=== PATIENT | male | born 1955 | race Caucasian/White ===

== ENCOUNTER → 2017-11-08 11:58 | Outpatient (CLI) | payer OTHER, SELFPAY ==
[2017-11-08 14:30] LABS: AST(SGOT) 30 U/L (15-37); Alanine Aminotransfer ALT/SGPT 66 U/L (16-61); Albumin, Serum 3.1 g/dL (3.2-5.0); Alkaline Phosphatase 120 U/L (45-117); Bilirubin, Direct 0.11 mg/dL (0.00-0.30); Cholesterol 172 mg/dL (200); Globulin 4.6 g/dL (2.2-4.2); High Density Lipoprotein 55 mg/dL; Protein, Total 7.7 g/dL (6.4-8.2); Triglycerides 94 mg/dL; Very Low Density Lipoprotein 19 mg/dL (5-40)
== END ==
PROVIDERS: Physician Assistant Medical; Family Provider Family Medicine; PCP Family Medicine; Visit Provider Internal Medicine Cardiovascular Disease
DX: I25.5 Ischemic cardiomyopathy (principal); I25.118 Atherosclerotic heart disease of native coronary artery with other forms of angina pectoris; I10 Essential (primary) hypertension; E78.5 Hyperlipidemia, unspecified; Z79.899 Other long term (current) drug therapy
CPT/HCPCS: 36415; 80061; 80076

== ENCOUNTER 2018-01-16 08:39 | Outpatient (RCR) | payer OTHER, SELFPAY ==
--- NOTE | 2018-02-15 12:08 | HP.FCE ---
HP OT Functional Capacity Eval - Task Lift Floor (Occasional 1-33% of Day): 40 lbs Floor (Frequent 34-66% of Day): 20 lbs Floor (Constant 67-100% of Day): 8 lbs Floor PDL: Light-Medium Knee (Occasional 1-33% of Day): 40 lbs Knee (Frequent 34-66% of Day): 20 lbs Knee (Constant 67-100% of Day): 8 lbs Knee PDL: Light-Medium Waist (Occasional 1-33% of Day): 40 lbs Waist (Frequent 34-66% of Day): 20 lbs Waist (Constant 67-100% of Day): 8 lbs Waist PDL: Light-Medium Shoulder (Occasional 1-33% of Day): 40 lbs Shoulder (Frequent 34-66% of Day): 20 lbs Shoulder (Constant 67-100% of Day): 8 lbs Shoulder PDL: Light-Medium Overhead (Occasional 1-33% of Day): 30 lbs Overhead (Frequent 34-66% of Day): 15 lbs Overhead (Constant 67-100% of Day): 6 lbs Overhead PDL: Light Comments: Performance classifies him in the light- light medium category of work performance. However, he became extremely SOB and need multiple breaks t/o session. Based on performance and cardiac complications he is unsafe to return to work at this time. Both emotional and physical stressors will inturn place increased strain on heart. Further recommnedation from material control analyst would be beneficial as chest pain Pt. noted is consistent t/o . - Work Activity/Posture Bending: Occasional Ability (1-33% of day) Comments: very SOB; able to complete but would not recommend more 10% Squatting: Occasional Ability (1-33% of day) Comments: very SOB; able to complete but would not recommend more 10% Kneeling: Occasional Ability (1-33% of day) Comments: very SOB; able to complete but would not recommend more 10% Reaching out: Frequent Ability (34-66% of day) Comments: FROM SEATED POSITION; BREAK NEEDED DUE TO SOB Reaching up: Frequent Ability (34-66% of day) Comments: FROM SEATED POSITION; BREAK NEEDED DUE TO SOB Sitting: Frequent Ability (34-66% of day) Comments: very SOB; able to complete but would not recommend more 10% Walking: Occasional Ability (1-33% of day) Comments: very SOB; able to complete but would not recommend more 10% Standing: Occasional Ability (1-33% of day) - Reference Duration Sedentary Sedentary Light Light Light Medium Medium Medium Heavy Very Heavy Heavy Occasional (0-33% of day) Frequent (34-66% of day) Constant (67-100% of day) 10 # Negligible Negligible 15 # 8 # Negligible 20 # 10# Negli. 35 # 18 # 7 # 50 # 25 # 10 # 75 # 100 # >100 # 38 # 50 # >50 # 15 # 20 # >20 # - Patient Information Height: 6 m Weight:: 247 kg Hand Dominance: r handed - Medical History Medical History Including Restrictions: No medical restrictions at this time as per Pt. report. No additional information provided by doctor. - Diagnoses Diagnoses: PMHx: CAD, former smoker, CABG 2007, 2x stent placements 06/09 and 12/16, angina, HTN, GERD, N-STEMI 1.5 years ago (3 total). LAst followed up Dr. Zapata with material control analyst 2 months ago. - Symptoms Symptoms: Pt. main symptoms are SOB, fatigue, and low endurance/stamina. Notes he pretty much getting chest ache all the time. It's not like a heart attack just always like an ache. - Pain Pain: Pt. notes just chest ache while sitting in chair. Notes no real ache. Notes that if needing to rate it would be about 2-3/10. 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 Notes that he completed a lot of heavy lifting and machine operating activities. Notes that previously needed to lift like 50-80 lbs but unsure fo what job decriotion entails and job description noted provied to therapist. - Behavioral Behavioral: Mookie appear to really try hard to complete all tasks. Dyspnea noted with all activities and t/o exertion of tasks. He appears to have about 5 min threshold with extertion tasks prior to needing seated break. SOB is limiting factor and limited endurance noted t/o session due breathing. This appears to be related to multiple factors and predisposing cardiac conditions. Further confirmation can be determined from material control analyst. Performance became more labored and more breaks needed as tasks continued t/o session. - ADLS ADLS: Pt. lives with in one story home with 5 steps to enter with handrials on b sides. FFSU with basement. Notes does not access basement too much. Notes he has 2 cats that he helps care for and noted that he completed all ADls/IADls but becomes very SOB with extertion tasks. Still drive, and grocery shopping but typically completes and he goes with one in while. - Physical Examination Physical Examination: Mookie arrived for FCE on this date. noted he has been tring to go back to work off/on since CABG in 2007. After last heart attack in 2016 he noted he went on STD and has since been placed on LTD. Mookie presents with multiple cardiac implications and becomes severly SOB with physical extertion. Performance classifies him at light to light medium work category but due to predisposing cardiac complications it is not reccommended or safe that he completes work at this level. As per Pt. report has completed [facility] Cardiac rehab 3x but SOB and limited endurance are still limiting ability to complete many tasks. ROM: Pt. ROM is WNL of B UE and LE. All ROM is WFL at this time. Strength: B UE. Deltoid: R 5/5 L 5/5. bicep: R 5/5 L 5/5. triceps: R 5/5 L 4 /5. supraspinatus: R 4+/5 L 4+/5. IR: R 5/5 L 5/5. ER: R 5/5 L 5/5. B LUE. Hip flexors: R 4+/5 L 4/5. hamstrings: R 4+/5 L 4+/5. quadraceps: R 4/5 L 4/5. plantarflexion: R 4+/5 L 4+/5. Hip adduction: R 5/5 L 5/5. hip abduction: R 5/5 L 5/5 Right Manager Customer Service Strength Average: 100.66 Right Manager Customer Service Strength Percentile: 142 Left Manager Customer Service Strength Average: 87.66 Left Manager Customer Service Strength Percentile: 106 Right Lateral Pinch Average: 21.33 Right Lateral Pinch Percentile: 75th Left Lateral Pinch Average: 18.33 Left Lateral Pinch Percentile: above 50th but below 75th Right Tripod Pinch Average: 19.66 Right Tripod Pinch Percentile: 75th Left Tripod Pinch Average: 14.33 Left Tripod Pinch Percentile: 25th Sensation: Pt. noted no numbness and tingling on this date. Notes not numbness on front of thighs with walking at times. Report not h/o of back pain or injury. Pt. completed monofilament test and results are as follows: R. 2nd 3.22. 3rd 2.83. 4th 3.22. 5th 3.22. thumb 3.84. L hand. 2nd 2.83. 3rd 2.83. 4th 2.83. 5th 2.83. thumb 2.83 Fine Motor: Pt. FMC and dexterity is intact and WFL. Completed 9 hole pegbiard test to fruther determine ability and results below: 9 hole pegboard: R 22.82 s (approx 75th percentile). L 24.66 s ( approx 50th percentile) Balance: Balance is WNL. No LOb noted. - Non Material Handling Activities Bendinx, 10x, 10x fast. Increased lighthheadness, SOB, and need for seated break. Completed but due to implications needs further rest. Fair body mechanics. Increased thoracic flexion which decreased soinal alignment. Due to increased symptoms from cardiac symptom should complete occassionally. Squattinx, 10x need for seated break due to increased SOB. 10 fast and another seated break. Although SOBa nd visibly winded stats remained within safe ranges. Due to SOB. BP 146/95. O2 97 % Kneelinx, 10x, need for seated break as increased SOB. Vitals taken. after 4 mins seated break compleetd 10 faster but at his own pace. Needed seated break again as winded. Needed 2 mins break prior to continuing. Visible winded and breathing heavily. HR 92 bpm, BP 151/88, O2 97%. Fair body mechanics. SLight hip external rotation causing feet to rotate outward, increaseed trunk flexion to maintain balance, spine in fair alignment. Due to increased SOB reccommendeding occassional as further endurance needed to be built up. Reaching out/up: From seated position as he needed break from extertion of previos sections. Reaching out: 3x, 10x, 10 x fast. Good body mechanics from seated position. No additional strain noted. Increased SOB during completion. Needed short 1 min break prior to continuing to regain breath. Reaching up: 3x, 10x, 10 x fast. Good body mechanics from seated position. Needed short rest post compeltion of task. vITALS: o2 98%, hr 87 BPM, bp 139/89. Walking: Completed 15 mins walk with need for 2 min break after 5 mins. Able to complete 6 laps at his own pace during 15 mins. Increased SOB noted and he became increasingly winded t/o session. Antalgic gait noted but gait WNL. Standing: Able to complete about 5-10 mins standing before needing to sit. Increased SOb with completing task. Sitting: Completed 30-40 mins of seated tasks. Notes when static sitting ache in chest area that he noted has been consistent for past couple of years. Notes ache in chest consistent with -09/09. Climbing Stairs: Pt. able to climb 10 stairs with laternating foot pattern with use of 1x handrail. Increased SOB noted and needing slight break to steady breath prior to continuing. - Dynamic Occasional Lifting Capacity Floor Lift: 40 lbs. Completed with poor body mechanics of decreased thoracic flexion, narrow baseof support, and lifting with straight legs. Increased Knee Lift: 40 lbs. SOB, holding breath, narrow KATHRYN Waist Lift: 40 lbs. SOB, holding breath, Shoulder Lift: 40 lbs. SOB, holding breath, Overhead Lift: 30 lbs Carryin lbs. SOB, holding breath,
--- NOTE | 2018-02-15 12:08 | HP.OTFCE.D ---
FCE D/C Summary - Discharge CARLTON CRAIG was seen for a one time visit for an FCE on 01/16/18 and is discharged.
--- NOTE | 2018-02-15 18:08 | HP.OTFCE_ITS ---
HP OT Functional Capacity Eval - Task Lift Floor (Occasional 1-33% of Day): 40 lbs Floor (Frequent 34-66% of Day): 20 lbs Floor (Constant 67-100% of Day): 8 lbs Floor PDL: Light-Medium Knee (Occasional 1-33% of Day): 40 lbs Knee (Frequent 34-66% of Day): 20 lbs Knee (Constant 67-100% of Day): 8 lbs Knee PDL: Light-Medium Waist (Occasional 1-33% of Day): 40 lbs Waist (Frequent 34-66% of Day): 20 lbs Waist (Constant 67-100% of Day): 8 lbs Waist PDL: Light-Medium Shoulder (Occasional 1-33% of Day): 40 lbs Shoulder (Frequent 34-66% of Day): 20 lbs Shoulder (Constant 67-100% of Day): 8 lbs Shoulder PDL: Light-Medium Overhead (Occasional 1-33% of Day): 30 lbs Overhead (Frequent 34-66% of Day): 15 lbs Overhead (Constant 67-100% of Day): 6 lbs Overhead PDL: Light Comments: Performance classifies him in the light- light medium category of work performance. However, he became extremely SOB and need multiple breaks t/o session. Based on performance and cardiac complications he is unsafe to return to work at this time. Both emotional and physical stressors will inturn place increased strain on heart. Further recommendation from e learning designer would be beneficial as chest pain Pt. noted is consistent t/o . Vitals remained within safe range but further e learning designer follow up still warrented. - Work Activity/Posture Bending: Occasional Ability (1-33% of day) Comments: very SOB; able to complete but would not recommend more 10% Squatting: Occasional Ability (1-33% of day) Comments: very SOB; able to complete but would not recommend more 5-10% Kneeling: Occasional Ability (1-33% of day) Comments: very SOB; able to complete but would not recommend more 5-10% Reaching out: Frequent Ability (34-66% of day) Comments: FROM SEATED POSITION; BREAK NEEDED DUE TO SOB Reaching up: Frequent Ability (34-66% of day) Comments: FROM SEATED POSITION; BREAK NEEDED DUE TO SOB Sitting: Frequent Ability (34-66% of day) Comments: very SOB; able to complete but would not recommend more 5-10% Walking: Occasional Ability (1-33% of day) Comments: very SOB; able to complete but would not recommend more 10% Standing: Occasional Ability (1-33% of day) - Reference Duration Sedentary Sedentary Light Light Light Medium Medium Medium Heavy Very Heavy Heavy Occasional (0-33% of day) Frequent (34-66% of day) Constant (67-100% of day) 10 # Negligible Negligible 15 # 8 # Negligible 20 # 10# Negli. 35 # 18 # 7 # 50 # 25 # 10 # 75 # 100 # >100 # 38 # 50 # >50 # 15 # 20 # >20 # - Patient Information Height: 6 m Weight:: 247 kg Hand Dominance: r handed - Medical History Medical History Including Restrictions: No medical restrictions at this time as per Pt. report. No additional information provided by doctor. - Diagnoses Diagnoses: PMHx: CAD, former smoker, CABG 2007, 2x stent placements 06/09 and , angina, HTN, GERD, N-STEMI 1.5 years ago (3 total). LAst followed up Dr. Zapata with e learning designer 2 months ago. - Symptoms Symptoms: Pt. main symptoms are SOB, fatigue, and low endurance/stamina. Notes he pretty much getting chest ache all the time. It's not like a heart attack just always like an ache. - Pain Pain: Pt. notes just chest ache while sitting in chair. Notes no real ache. Notes that if needing to rate it would be about 2-3/10. 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 Notes that he completed a lot of heavy lifting and machine operating activities. Notes that previously needed to lift like 50-80 lbs but unsure of what job description entails as no job description provided to therapist. - Behavioral Behavioral: Mookie appear to really try hard to complete all tasks. Dyspnea noted with all activities and t/o exertion of tasks. He appears to have about 5 min threshold with exertion tasks prior to needing seated break. SOB is limiting factor and limited endurance noted t/o session due breathing. This appears to be related to multiple factors and predisposing cardiac conditions. Further confirmation can be determined from e learning designer. Performance became more labored and more breaks needed as tasks continued t/o session. - ADLS ADLS: Pt. lives with in one story home with 5 steps to enter with handrails on b sides. [employer] with basement. Notes does not access basement too much. Notes he has 2 cats that he helps care for and noted that he completed all ADls/IADls but becomes very SOB with exertion tasks. Still drive, and grocery shopping but typically completes, and he goes with one in while. - Physical Examination Physical Examination: Mookie arrived for FCE on this date. noted he has been trying to go back to work off/on since CABG in 2007. After last heart attack in 2016 he noted he went on STD and has since been placed on LTD. Mookie presents with multiple cardiac implications and becomes severely SOB with physical exertion. Performance classifies him at light to light medium work category but due to predisposing cardiac complications it is not recommended or safe that he completes work at this level. As per Pt. report has completed [facility] Cardiac rehab 3x but SOB and limited endurance are still limiting ability to complete many tasks. It would not be recommended he return to strenuous or light-light medium work due to increased SOB. Due to increased strain and emotional stressors of work it would not be recommended for him to return to prior job as safety and integrity of heart is major concern at this time. Further approval and recommendation from e learning designer would be needed. ROM: Pt. ROM is WNL of B UE and LE. All ROM is WFL at this time. No noted deficits. Strength: B UE. Deltoid: R 5/5 L 5/5. bicep: R 5/5 L 5/5. triceps: R 5/ 5 L 4 /5. supraspinatus: R 4+/5 L 4+/5. IR: R 5/5 L 5/5. ER: R 5/5 L 5/5. B LUE. Hip flexors: R 4+/5 L 4/5. hamstrings: R 4+/5 L 4+/5. quadraceps: R 4/5 L 4/5. plantarflexion: R 4+/5 L 4+/5. Hip adduction: R 5 /5 L 5/5. hip abduction: R 5/5 L 5/5 Right Patient Appointment Coordinator Strength Average: 100.66 Right Patient Appointment Coordinator Strength Percentile: 142 Left Patient Appointment Coordinator Strength Average: 87.66 Left Patient Appointment Coordinator Strength Percentile: 106 Right Lateral Pinch Average: 21.33 Right Lateral Pinch Percentile: 75th Left Lateral Pinch Average: 18.33 Left Lateral Pinch Percentile: above 50th but below 75th Right Tripod Pinch Average: 19.66 Right Tripod Pinch Percentile: 75th Left Tripod Pinch Average: 14.33 Left Tripod Pinch Percentile: 25th Sensation: Pt. noted no numbness and tingling on this date. Notes not numbness on front of thighs with walking at times. Report not h/o of back pain or injury. Pt. completed monofilament test and results are as follows: R. 2nd 3.22. 3rd 2.83. 4th 3.22. 5th 3.22. thumb 3.84. L hand. 2nd 2.83. 3rd 2.83. 4th 2.83. 5th 2.83. thumb 2.83 Fine Motor: Pt. FMC and dexterity is intact and WFL. Completed 9 hole pegbiard test to fruther determine ability and results below: 9 hole pegboard: R 22.82 s (approx 75th percentile). L 24.66 s ( approx 50th percentile) Balance: Balance is WNL. No LOb noted. - Non Material Handling Activities Bendinx, 10x, 10x fast. Increased lighthheadness, SOB, and need for seated break. Completed but due to implications needs further rest. Fair body mechanics. Increased thoracic flexion which decreased spinal alignment. Due to increased symptoms from cardiac symptom should complete occasionally. Squattinx, 10x need for seated break due to increased SOB. 10 fast and another seated break. Although SOB and visibly winded stats remained within safe ranges BP 146/95. O2 97 %. Due to multiple cardiac complication this task should be monitored and further testing by e learning designer would be beneficial at this time. Body mechanics fair but due to SOB and h/o cardiac complications squatting should be completed on occasion. Kneelinx, 10x, need for seated break as increased SOB. Vitals taken: HR 92 bpm, BP 151/88, O2 97%. after 4 mins seated break completed 10 faster but at his own pace. Needed seated break again as winded but very minimal power shovel mechanic changes noted. Needed 2 mins break prior to continuing. Fair body mechanics. Slight hip external rotation causing feet to rotate outward, increased trunk flexion to maintain balance, spine in fair alignment. Due to increased SOB recommending occasional as further endurance needed to be built up before completing this task frequently. Further is additionally recommended to be obtained by e learning designer as due to h/o cardiac complications and increased SOB with all tasks to the threshold of physical performance given heart conditions. Reaching out/up: From seated position as he needed break from extertion of previous sections. Reaching out: 3x, 10x, 10 x fast. Good body mechanics from seated position. No additional strain noted. Increased SOB during completion. Needed short 1 min break prior to continuing to regain breath. Reaching up: 3x, 10x, 10 x fast. Good body mechanics from seated position. Needed short rest post compeltion of task. VITALS: o2 98%, hr 87 BPM, bp 139/ 89. Vitals remained within safe range for physical exertion. Walking: Completed 15 mins walk with need for 2 min break after 5 mins. Able to complete 6 laps , each lap 340 ft, at his own pace during 15 mins. Increased SOB noted and he became increasingly winded t/o session. Antalgic gait noted but gait WNL. Standing: Able to complete about 5-10 mins standing before needing to sit. Increased SOB with completing task. Sitting: Completed 30-40 mins of seated tasks. Notes when static sitting ache in chest area that he noted has been consistent for past couple of years. Notes ache in chest consistent with 2-3/10. Climbing Stairs: Pt. able to climb 10 stairs with laternating foot pattern with use of 1x handrail. Increased SOB noted and needing slight break to steady breath prior to continuing. - Dynamic Occasional Lifting Capacity Floor Lift: 40 lbs. Completed with poor body mechanics of decreased thoracic flexion, narrow base of support, and lifting with straight legs. SOB, holding breath, increased compensations and mechanical changes noted while completing task. Fair body mechanics. Although performance classifies at light medium it would not be recommended that he completes that type of strenuous work load given PMH of cardiac complications. Further approval would be recommended from e learning designer on what Pt. can tolerate. Knee Lift: 40 lbs. SOB, holding breath, narrow KATHRYN, increased compensations and mechanical changes noted while completing task. Fair body mechanics. Although performance classifies at light medium it would not be recommended that he completes that type of strenuous work load given PMH of cardiac complications without further approval from e learning designer. Waist Lift: 40 lbs. SOB, holding breath, increased compensations and mechanical changes noted while completing task. Fair body mechanics. Although performance classifies at light medium it would not be recommended that he completed that type of strenuous work load give PMH of cardiac complications without further approval from e learning designer. Shoulder Lift: 40 lbs. SOB, holding breath, increased compensations and mechanical changes noted while completing task. Fair body mechanics. Although performance classifies at light medium it would not be reccommended that he completed that type of strenuous work load give PMH of cardiac complications without further approval from e learning designer. Overhead Lift: 30 lbs. SOB, holding breath, increased compensations and mechanical changes noted while completing task. Fair body mechanics. Although performance classifies at light it would not be reccommended that he completed that type of strenuous work load give PMH of cardiac complications without further approval from e learning designer. Carryin lbs. SOB, holding breath, increased compensations and mechanical changes noted while completing task. Fair body mechanics. Although performance classifies at light medium it would not be reccommended that he completed that type of strenous work load give PMH of cardiac complications without further approval from e learning designer. Comments: At completion of session BP 151/88, o2 97%, and HR 92 bpm. Vitals fairly consistent t/o session with use of automatic BP cuff. These vitals are within normal limits due to exertions. However, vitals were taken a couple minutes after resting due to time needed for machine to process and complete measurements. Due to increased SOB, and compensations it would be recommended for further testing and follow up with e learning designer. It would not be recommended Pt. performs at light- light medium range due to increased stain on heart and mechanical changes and SOB noted t/o session. It further maybe beneficial for Pt. to see psychologist to rule out anxiety related changes causing SOB due to increased stressors of cardiac related issues over the last few years.
== END 2018-01-16 19:00 | disposition home or self-care (01) ==
LOC: OT 08:39
PROVIDERS: Family Provider Family Medicine; PCP Family Medicine; Visit Provider Family Medicine
DX: I25.10 Atherosclerotic heart disease of native coronary artery without angina pectoris (principal)
CPT/HCPCS: 97750

== ENCOUNTER → 2018-05-07 10:11 | Outpatient (CLI) | payer OTHER, SELFPAY | PROVIDERS: Family Provider Family Medicine; PCP Family Medicine; Referring Provider Physician Assistant Medical; Visit Provider Physician Assistant Medical | DX: Z00.00 Encounter for general adult medical examination without abnormal findings (principal) ==

== ENCOUNTER → 2018-11-12 | Outpatient (CLI) | payer OTHER, MEDICARE, SELFPAY ==
[2018-05-11 10:16] VITALS: BMI 34.3
[2018-11-12 10:12] LABS: Absolute Lymphocyte Count 2.08 X10^3/ul (0.83-4.51); Absolute Neutrophil Count 5.9 X10^3/uL (2.0-7.7); Basophil# 0.08 X10^3/uL; Basophil% 0.8 % (0-1); Eosinophil# 0.42 X10^3/uL; Eosinophils% 4.4 % (0-5); Hemoglobin 16.2 g/dl (13.0-16.5); Lymphocyte # 2.08 X10^3/ul (4.0); Lymphocyte % 21.9 % (19-41); Mean Corp Hgb Conc 34.5 g/gl (32-36); Mean Corpuscular Hgb 30.1 pg (27.0-32.0); Mean Corpuscular Volume 87.2 fL (80-94); Mean Platelet Vol. 11.3 fl (6.2-12.0); Monocyte# 0.97 X10^3/uL; Monocyte% 10.2 % (0-10); Neutrophil # 5.94 X10^3/uL (2.7-7.7); Neutrophil % 62.6 % (47-70); Platelet Count 203 K/mm3 (150-450); RBC Distribution Width CV 13.9 % (11.6-14.6); Red Blood Count 5.39 M/mm3 (4.6-6.2); White Blood Count 9.5 K/mm3 (4.4-11.0)
[2018-11-12 10:13] LABS: POSITIVE COUNT NO; POSITIVE DIFFERENTIAL NO; POSITIVE MORPHOLOGY NO
[2018-11-12 10:48] LABS: ALB/GLOB Ratio 0.7 RATIO (0.9-2.4); AST(SGOT) 21 U/L (15-37); Alanine Aminotransfer ALT/SGPT 42 U/L (16-61); Albumin, Serum 3.1 g/dL (3.2-5.0); Alkaline Phosphatase 112 U/L (45-117); Anion Gap 5 (5-15); BUN 23 mg/dL (7-18); BUN/Creat Ratio 16.8 RATIO (10-20); Bilirubin, Direct 0.08 mg/dL (0.00-0.30); Calcium,Total 8.5 mg/dL (8.5-10.1); Chloride 107 mmol/L (98-107); Cholesterol 153 mg/dL (200); Creatinine, Serum 1.37 mg/dL (0.70-1.30); EST Glomerular Filtration Rate 56 mL/min (>60); Est Glom Filt Rate - Afr Amer 67 mL/min (>60); Globulin 4.2 g/dL (2.2-4.2); Glucose 104 mg/dL (74-106); High Density Lipoprotein 44 mg/dL; Protein, Total 7.3 g/dL (6.4-8.2); Sodium Level 136 mmol/L (136-145); Thyroid Stim Hormone (TSH) 1.87 uIU/mL (0.358-3.74); Triglycerides 196 mg/dL; Very Low Density Lipoprotein 39 mg/dL (5-40)
== END | disposition home or self-care (01) ==
LOC: MTLAB 09:22
PROVIDERS: Family Provider Family Medicine; PCP Family Medicine; Referring Provider Physician Assistant Medical; Visit Provider Physician Assistant Medical
DX: Z00.00 Encounter for general adult medical examination without abnormal findings (principal); I25.10 Atherosclerotic heart disease of native coronary artery without angina pectoris; E78.5 Hyperlipidemia, unspecified
CPT/HCPCS: 80053; 80061; 82248; 84153; 84443; 85025; G0103

== ENCOUNTER 2019-05-13 15:44 | Inpatient (IN) | payer OTHER, MEDICARE, SELFPAY ==
[2018-12-04 12:22] VITALS: BMI 32.3
[2019-05-13] VITALS (18 sets, daily range): BP systolic 75–120; BP diastolic 51–73; PULSE 101–122; RESP 20–32; TEMP 34.7–37.2; O2SAT 89–100; BMI 30.3; BMI 31.1
--- NOTE | 2019-05-13 15:54 | EKG12_ITS ---
Test Reason : PALPS Blood Pressure : / mmHG Vent. Rate : 119 BPM Atrial Rate : 101 BPM P-R Int : 000 ms QRS Dur : 094 ms QT Int : 320 ms P-R-T Axes : 000 019 075 degrees QTc Int : 450 ms Atrial fibrillation with rapid ventricular response Nonspecific ST abnormality Poor R wave progression Abnormal ECG Confirmed by JOSELIN PETERSEN, WILMAR ([id number]), web editor DON COATS ([id number] on 05/15/2019 9:42:39 AM Referred By: Cat Vincent Confirmed By:WILMAR OLIVERA MD
--- NOTE | 2019-05-13 15:55 | ED.DCSUM_ITS ---
History of Present Illness Chief Complaint: Abd Pain Informant: Patient Onset: Days Context: Gradual Onset Timing: Continuous Current Severity: Moderate Maximum Severity: Severe Narrative: The patient presents to the emergency department nausea, vomiting, diarrhea, abdominal cramping. He states his symptoms began on Monday. He thinks that he ate chicken that was bad. Since then, he had diffuse abdominal cramping with multiple episodes of loose, watery diarrhea. He is unsure if he had fever. He does admit to diffuse cramping across his abdomen. The patient does have history of prior coronary vascular disease. He has had a prior CABG and since then has required stenting. He states that he has been off of his heart medications because he was unable to keep them down. He has not had chest pain. He does feel mildly short of breath and just generally weak. He denies any blood in his bowel movements. Prior similar symptoms: No Recent Illness/Hospitalization: No Past Medical History - Allergies and Home Meds Allergies/Adverse Reactions: Allergies No Known Allergies Allergy (Verified 05/13/19 15:46) Prior records reviewed: Yes Past Medical History: - - Hypertension, hyperlipidemia Surgical History: coronary bypass surgery - 2007 Smoking Status: Former smoker - Family History Maternal Family History: Family History (Last Reviewed 12/04/18 @ 15:24 by Javon Zapata MD) Mother Cancer Father Cancer Brother HLD (hyperlipidemia) Family History: Reports: - - Cervical cancer Paternal Family History: Family History (Last Reviewed 12/04/18 @ 15:24 by Javon Zapata MD) Mother Cancer Father Cancer Brother HLD (hyperlipidemia) Family History: Reports: Cancer Review of Systems General: Denies: Chills, Fever, Sweats Eyes: Denies: Visual changes - bilaterally, Diplopia ENT: Denies: Rhinorrhea, Sore throat Cardiovascular: Denies: Chest pain, Palpitations Respiratory: Reports: Dyspnea. Denies: Cough, Dyspnea on exertion Gastrointestinal: Reports: Abdominal pain, Nausea, Vomiting. Denies: Diarrhea, Melena, Hematochezia Genitourinary: Denies: Dysuria, Hematuria, Frequency Musculoskeletal: Denies: Back pain, Extremity Pain Skin: Denies: Rash, Wounds Neurological: Denies: Headache, Weakness, Numbness Physical Exam Vital Signs/Narrative: Vital Signs Temp Pulse Resp BP Pulse Ox 05/13/19 15:53 94.5 F L 44 L 22 H 120/63 89 05/13/19 15:46 94.5 F L 44 L 22 H 120/63 89 Inital Vital Signs reviewed: Yes General: Well nourished, Well developed, No Acute Distress Head: Normocephalic, Atraumatic Eyes: Perrl, EOMI ENT: Moist mucous membranes, No rhinorrhea Neck: Supple, Nontender Cardiovascular: Regular rate, Regular rhythm, No murmurs Respiratory: No distress, CTA bilaterally, Chest nontender Abdomen: Soft, Nondistended, Normal bowel sounds, Tender. Negative for: Guarding, Rebound tenderness Back: Nontender, Normal Inspection Extremities: Nontender, No edema Skin: Normal color, No rash Neurological: Alert, Oriented x3, Cranial nerves II-XII grossly intact, Normal Strength, Normal Sensation Psychological: Normal affect, Normal Mood Diagnostic/Tx/Re-eval Chest X-Ray - ED: 1 View, Chronic Changes, Cardiomegaly Clinical Impression(s) from Imaging Studies Abdomen CTA 05/13/19 15:59 IMPRESSION: No evidence of superior mesenteric artery occlusion or flow-limiting stenosis. Electronically Signed: Jayme Parekh MD at 16:33 EST Tel , Service support , Abdomen/Pelvis CT 05/13/19 16:53 IMPRESSION: No CT evidence of colitis. Specifically, no areas of colonic wall thickening or adjacent fatty attenuation. No evidence of acute intestinal pathology or acute obstructive uropathy. Electronically Signed: Jayme Parekh MD at 17:19 EST Tel , Service support , Abnormal Lab Results 05/13/19 05/13/19 05/13/19 16:00 16:00 16:00 WBC 14.9 H RBC 6.40 H Hgb 19.1 H* Hct 55.8 H MCV 87.2 MCH 29.8 MCHC 34.2 RDW Std Deviation 42.5 RDW Coeff of [place] 13.4 Plt Count 269 MPV 11.8 Immature Gran % (Auto) 0.300 Neut % (Auto) 78.3 H Lymph % (Auto) 9.6 L [place] % (Auto) 10.8 H Eos % (Auto) 0.6 Baso % (Auto) 0.4 Absolute Neuts (auto) 11.7 H Absolute Lymphs (auto) 1.43 Nucleated RBC % 0 Differential Comment SCANNED Diff Path Review May foll PT INR APTT Specimen Type Sample Site VBG pH VBG pO2 VBG O2 Sat (Calc) VBG O2 Content VBG Base Excess POC Mix VBG pCO2 Pt Tmp Blood Gas Notified Whom Blood Gas Notified Time Sodium 125 L Potassium 3.7 Chloride 85 L Carbon Dioxide 13.0 L Anion Gap 27 H BUN 100 H Creatinine 16.80 H* Estim Creat Clear Calc 5.02 Est GFR (MDRD) Af Amer 4 L Est GFR (MDRD) Non-Af 3 L BUN/Creatinine Ratio 6.0 L Glucose 167 H Lactic Acid 5.5 H* Calcium 8.5 Total Bilirubin 0.60 AST 15 ALT 36 Alkaline Phosphatase 116 Troponin I < 0.015 Total Protein 10.1 H Albumin 3.6 Globulin 6.5 H Albumin/Globulin Ratio 0.6 L Lipase 663 H TSH 1.03 Thyroxine (T4) 10.0 05/13/19 05/13/19 05/13/19 16:00 16:12 17:24 WBC RBC Hgb Hct MCV MCH MCHC RDW Std Deviation RDW Coeff of [place] Plt Count MPV Immature Gran % (Auto) Neut % (Auto) Lymph % (Auto) [place] % (Auto) Eos % (Auto) Baso % (Auto) Absolute Neuts (auto) Absolute Lymphs (auto) Nucleated RBC % Differential Comment Diff Path Review PT Cancelled 15.2 H INR Cancelled 1.2 APTT Cancelled 28.3 Specimen Type JULISSA Sample Site OTHER VBG pH 7.11 L* VBG pO2 33 VBG O2 Sat (Calc) 46 L VBG O2 Content 12 L VBG Base Excess -18 L POC Mix VBG pCO2 Pt Tmp 35.0 L Blood Gas Notified Whom ED Blood Gas Notified Time 1605 Sodium Potassium Chloride Carbon Dioxide Anion Gap BUN Creatinine Estim Creat Clear Calc Est GFR (MDRD) Af Amer Est GFR (MDRD) Non-Af BUN/Creatinine Ratio Glucose Lactic Acid Calcium Total Bilirubin AST ALT Alkaline Phosphatase Troponin I Total Protein Albumin Globulin Albumin/Globulin Ratio Lipase TSH Thyroxine (T4) - Rhythm Strip Rhythm Strip: A-fib Rate: 110 Ectopy: None - EKG Initial EKG Interpretation: No Acute Injury Pattern, Atrial Fibrillation Prior: Changed - Medical Decision Making The patient presents to the emergency department with abdominal pain, nausea, vomiting, diarrhea. His abdominal wall does appear to be mottled. His EKG demonstrated new onset atrial fibrillation. The patient was sent for stat CTA given his new A. fib and abdominal pain to rule out acute vascular process. This was unremarkable for acute occlusion. IV was established. The patient was given fluids. Screening labs do show leukocytosis, concentration across the blood lines, and a lactic acidosis of 5.5. The patient has new acute renal failure with a creatinine of almost 17. He has a BUN of over 100. The patient was discussed with intensive care and the hospitalist. He was also discussed with nephrology. Given his new renal failure, along with his lactic acidosis, he will be admitted to the intensive care unit. Impression 1. Acute renal failure 2. Dehydration 3. New onset atrial fibrillation 4. Lactic acidosis - Critical Care Time Critical care time (excluding procedures): 30-74 minutes ED Disposition - Plan for ED Patient:
--- NOTE | 2019-05-13 15:59 | CT_ITS ---
CT ANGIOGRAM OF THE ABDOMEN WITH CONTRAST HISTORY: Mesenteric ischemia COMPARISON: Technique: Axial CT angiogram images of the abdomen was performed after IV contrast administration of [ 100 ]cc of [ Isovue 300 ] followed by sagittal and coronal reconstructions. 3-D postprocessing was performed. Individualized dose optimization techniques were used for this CT. FINDINGS: Scattered calcified arterial plaque in the abdomen. There is no evidence of abdominal aortic dissection, occlusion, aneurysm, or stenosis. The abdominal aortic branch vessels are patent. Visualized portions of the common iliac arteries are patent. No evidence of superior mesenteric artery occlusion or flow-limiting stenosis. Median sternotomy wires. Visualized lung bases are intact. Fatty liver. Spleen, adrenal glands, kidneys, pancreas and gallbladder are unremarkable. Visualized bowel is intact. Incompletely visualized appendix. No free abdominal fluid. CT/CTA Abdomen W/WO Contrast IMPRESSION: No evidence of superior mesenteric artery occlusion or flow-limiting stenosis. Electronically Signed: Jayme Parekh MD at 16:33 EST Tel , Service support ,
[2019-05-13] MEDS: fentaNYL 100 MCG/2 ML Ampul 25 MCG IV (16:02)
[2019-05-13] MEDS: 0.9% Normal Saline 1,000 ML 1000 ML IV (16:03)
[2019-05-13] MEDS: Ondansetron 4 MG/2 ML Vial IV (16:03)
[2019-05-13 16:20] LABS: Blood Gas Specimen Type VEN; SITE OTHER; Time Given 1605; VBG BASE EXCESS -18 mmol/L (-1.0-3.5); VBG Bicarbonate 11 mmol/L (22-26); VBG Oxygen Content 12 mmol/L (23-33); VBG PO2 33 mmHg (25-40); VBG SO2 46 % (50-70); VBG pH 7.11 (7.32-7.42)
[2019-05-13 16:23] LABS: Absolute Lymphocyte Count 1.43 X10^3/uL (0.83-4.51); Absolute Neutrophil Count 11.7 X10^3/uL (2.0-7.7); Basophil# 0.06 X10^3/uL; Basophil% 0.4 % (0-1); Eosinophil# 0.09 X10^3/uL; Eosinophils% 0.6 % (0-5); Hemoglobin 19.1 g/dL (13.0-16.5); Lymphocyte # 1.43 X10^3/ul (4.0); Lymphocyte % 9.6 % (19-41); Mean Corp Hgb Conc 34.2 g/dL (32-36); Mean Corpuscular Hgb 29.8 pg (27.0-32.0); Mean Corpuscular Volume 87.2 fL (80-94); Mean Platelet Vol. 11.8 fl (6.2-12.0); Monocyte# 1.61 X10^3/uL; Monocyte% 10.8 % (0-10); NRBC Flagged by Analyzer 0 % (0-5); Neutrophil # 11.66 X10^3/uL (2.7-7.7); Neutrophil % 78.3 % (47-70); POSITIVE DIFFERENTIAL YES; POSITIVE MORPHOLOGY YES; Platelet Count 269 K/mm3 (150-450); RBC Distribution Width CV 13.4 % (11.6-14.6); RBC Distribution Width SD 42.5 fl (35.1-43.9); White Blood Count 14.9 K/mm3 (4.4-11.0)
[2019-05-13 16:27] LABS: Hematocrit 55.8 % (40-54)
[2019-05-13 16:28] LABS: Differential Indicated SCAN CRITERIA MET
--- NOTE | 2019-05-13 16:36 | CPS ---
Copy of critical VBG results given to Dr. Oviedo.
[2019-05-13] MEDS: 0.9% Normal Saline 1,000 ML 999 ML IV (16:43)
[2019-05-13 16:47] LABS: Lactic Acid 5.5 mmol/L (0.4-2.0)
--- NOTE | 2019-05-13 16:53 | CT_ITS ---
STUDY: CT ABDOMEN AND PELVIS WITHOUT CONTRAST REASON FOR EXAM: Male, 63 years old. Colitis RADIATION DOSAGE (If Supplied By Facility): CTDIvol = ( 20.01 ) mGy, DLP = ( 1104.94 ) mGycm TECHNIQUE: Transaxial images were obtained from the dome of the diaphragm to the symphysis pubis without oral contrast, and without intravenous contrast. Sagittal and coronal images were reconstructed. Individualized dose optimization techniques were used for this CT. COMPARISON: None. FINDINGS: The visualized lung bases are unremarkable. Coronary artery stent. Median sternotomy wires. Normal liver. Normal gallbladder and extrahepatic biliary system. Normal spleen. Normal pancreas. Normal bilateral adrenal glands. Normal right kidney. Normal left kidney. Normal visualized stomach. Normal small intestine. Normal colon. The appendix is visualized and appears normal. Normal abdominal aorta. Normal inferior vena cava. Normal retroperitoneum. Normal urinary bladder. Normal abdominal wall. Normal osseous structures. CT/Abdomen/Pelvis without Cont IMPRESSION: No CT evidence of colitis. Specifically, no areas of colonic wall thickening or adjacent fatty attenuation. No evidence of acute intestinal pathology or acute obstructive uropathy. Electronically Signed: Jayme Parekh MD at 17:19 EST Tel , Service support ,
[2019-05-13 17:00] LABS: ALB/GLOB Ratio 0.6 RATIO (0.9-2.4); AST(SGOT) 15 U/L (15-37); Alanine Aminotransfer ALT/SGPT 36 U/L (16-61); Albumin, Serum 3.6 g/dL (3.2-5.0); Alkaline Phosphatase 116 U/L (45-117); Anion Gap 27 (5-15); BUN 100 mg/dL (7-18); Calcium,Total 8.5 mg/dL (8.5-10.1); Chloride 85 mmol/L (98-107); EST Glomerular Filtration Rate 3 mL/min (>60); Est Glom Filt Rate - Afr Amer 4 mL/min (>60); Estimated Creatinine Clearance 5.02 ml/min; Globulin 6.5 g/dL (2.2-4.2); Glucose 167 mg/dL (74-106); Lipase 663 U/L (73-393); Potassium 3.7 mmol/L (3.5-5.1); Protein, Total 10.1 g/dL (6.4-8.2); Sodium Level 125 mmol/L (136-145); Thyroid Stim Hormone (TSH) 1.03 uIU/mL (0.358-3.74)
[2019-05-13 17:16] LABS: Differential Comment SCANNED
--- NOTE | 2019-05-13 17:40 | RAD_ITS ---
STUDY: X-RAY CHEST REASON FOR EXAM: Male, 63 years old. SOB TECHNIQUE: Single frontal view of the chest. COMPARISON: 01/11/2016 FINDINGS: Median sternotomy wires and CABG clips. Chronic interstitial lung changes without superimposed acute alveolar disease. There is no demonstrated pleural abnormality. Normal size heart. Normal mediastinum and bubba. Normal visualized pulmonary arteries. Normal visualized aortic arch and descending thoracic aorta. Normal visualized thoracic spine. Normal visualized ribs, clavicles, and shoulders. There is no demonstrated abnormality of the visualized soft tissue structures of the upper abdomen. RAD/Chest 1 View (Portable) IMPRESSION: Chronic interstitial lung changes without superimposed acute alveolar disease. Electronically Signed: Jayme Parekh MD at 18:05 EST Tel , Service support ,
[2019-05-13 17:47] LABS: International Normalized Ratio 1.2; Prothrombin Time (Protime)PT. 15.2 SECONDS (11.7-14.9)
[2019-05-13 17:48] LABS: Partial Thromboplast Time 28.3 Seconds (24.1-36.2)
--- NOTE | 2019-05-13 17:58 | HP.PCM_ITS ---
<Deborah Bland - Last Filed: 05/13/19 18:19> Problem List (1) H/O coronary artery bypass surgery Status: Chronic Comment: CABG X 4 CANTRELL-LAD, SVG- Ramus, SVG-D1, left radial artery to the RCA bifurcation 12/03/2007 (2) Atherosclerosis of coronary artery bypass graft without angina pectoris Status: Chronic Comment: PCI-SAVI-Mid LAD 06/06/08; [id number]-[id number]-Vzksja and Prox RCA 01/11/2016 CABG X 4 CANTRELL-LAD, SVG- Ramus, SVG-D1, left radial artery to the RCA bifurcation 12/03/2007 (3) Essential (primary) hypertension Status: Chronic (4) History of inferior wall myocardial infarction Status: Chronic (5) Ischemic cardiomyopathy Status: Chronic (6) History of coronary artery stent placement Status: Chronic Comment: PCI-SAVI-Mid LAD 06/06/08; EGJ-OJM-Cohy RCA w/ 3.5 x 28 mm Vision and BMS-Distal RCA w/ 4.5 x 28 mm Rebel Stent 01/11/2016 (7) Paroxysmal ventricular tachycardia Status: Chronic (8) Atherosclerotic heart disease of [place]low[place] de[place]-ni' coronary artery with other forms of angina pectoris Status: Chronic (9) HLD (hyperlipidemia) Status: Chronic Qualifiers: Hyperlipidemia type: pure hypercholesterolemia Qualified Code(s): E78.00 - Pure hypercholesterolemia, unspecified; E78.0 - Pure hypercholesterolemia History of Present Illness Date of Admission: 05/13/19 Chief Complaint: Nausea, vomiting, diarrhea, weakness. The patient is a 63 year old M who presents emergency room due to nausea, vomiting, diarrhea and general weakness. Patient reports he was making chicken on Monday and ate a piece of cheese after touching raw chicken without washing his hands. He reports approximately 2 hours after this he developed sudden onset nausea, vomiting and has had at least hourly diarrhea since that time. He is unable to keep down any drink or food. Complains of generalized abdominal cramping and tenderness. He complains of general fatigue and lightheadedness, worse with standing. Patient also reports intermittent fever, chills. He states he has not urinated the last few days. He has not been able to take his home medications due to vomiting. He has a past medical history of CAD status post CABG and stents, hypertension, hyperlipidemia, GERD, former tobacco use, alcohol use. Past Medical History Past Medical History (Chronic Problems): Chronic Problems (Last Reviewed 12/04/18 @ 15:24 by Javon Zapata MD) H/O coronary artery bypass surgery (Chronic 12/03/07) CABG X 4 CANTRELL-LAD, SVG- Ramus, SVG-D1, left radial artery to the RCA bifurcation 12/03/2007 Atherosclerosis of coronary artery bypass graft without angina pectoris (Chronic) PCI-SAVI-Mid LAD 06/06/08; QSF-NKH-Oeskqz and Prox RCA 01/11/2016 CABG X 4 CANTRELL-LAD, SVG- Ramus, SVG-D1, left radial artery to the RCA bifurcation 12/03/2007 Essential (primary) hypertension (Chronic) History of inferior wall myocardial infarction (Chronic 2015) Ischemic cardiomyopathy (Chronic) History of coronary artery stent placement (Chronic 01/11/16) PCI-SAVI-Mid LAD 06/06/08; [id number]-[id number]-Qimf RCA w/ 3.5 x 28 mm Vision and BMS- Distal RCA w/ 4.5 x 28 mm Rebel Stent 01/11/2016 Paroxysmal ventricular tachycardia (Chronic) Atherosclerotic heart disease of [place] de[place]' coronary artery with other forms of angina pectoris (Chronic) HLD (hyperlipidemia) (Chronic) Medical History: Medical History (Last Reviewed 12/04/18 @ 15:24 by Javon Zapata MD) Atherosclerosis of coronary artery bypass graft without angina pectoris (Chronic) I25.810 PCI-SAVI-Mid LAD 06/06/08; DNL-FLW-Taxhgt and Prox RCA 01/11/2016 CABG X 4 CANTRELL-LAD, SVG- Ramus, SVG-D1, left radial artery to the RCA bifurcation 12/03/2007 Essential (primary) hypertension (Chronic) I10 History of inferior wall myocardial infarction (Chronic) Onset Date: 2015 I25.2 Ischemic cardiomyopathy (Chronic) I25.5 Paroxysmal ventricular tachycardia (Chronic) I47.2 Atherosclerotic heart disease of [place]' coronary artery with other forms of angina pectoris (Chronic) I25.118 HLD (hyperlipidemia) (Chronic) E78.5 Hx of non-ST elevation myocardial infarction (NSTEMI) I25.2 Allergies No Known Allergies Allergy (Verified 05/13/19 15:46) Home Medications: Ambulatory Orders Medication Instructions Recorded Aspirin [Aspirin, Baby] 81 mg PO DAILY@0800 04/29/13 nitroglycerin 0.4 mg sublingual 0.4 mg SUBLINGUAL Q5M PRN #25 tab 11/16/17 tablet metoprolol succinate ER 100 mg 100 mg PO DAILY #90 tab 05/11/18 tablet,extended release 24 hr clopidogrel 75 mg tablet 75 mg PO DAILY #90 tab 08/02/18 pantoprazole 40 mg tablet,delayed 40 mg PO DAILY #90 tab 11/05/18 release amlodipine 10 mg tablet 10 mg PO DAILY #90 tab 11/09/18 atorvastatin 80 mg tablet 80 mg PO QHS #90 tab 12/04/18 lisinopril 10 mg tablet 10 mg PO DAILY 12/04/18 isosorbide mononitrate ER 60 mg 60 mg PO BID #180 tab 02/11/19 tablet,extended release 24 hr Surgical History: Surgical History (Last Reviewed 12/04/18 @ 15:24 by Javon Zapata MD) H/O coronary artery bypass surgery (Resolved) Onset Date: 12/03/07 Z95.1 CABG X 4 CANTRELL-LAD, SVG- Ramus, SVG-D1, left radial artery to the RCA bifurcation 12/03/2007 History of coronary artery stent placement (Resolved) Onset Date: 01/11/16 Z95.5 PCI-SAVI-Mid LAD 06/06/08; [id number]-UKQ-Yosy RCA w/ 3.5 x 28 mm Vision and BMS- Distal RCA w/ 4.5 x 28 mm Rebel Stent 01/11/2016 Surgical History: coronary bypass surgery - 2007 Psychiatric History: No pertinent psych hx Lives: Spouse/ Significant Other Smoking Status: Former smoker Alcohol: Heavy Drugs: None - *Family History Maternal Family History: Family History (Last Reviewed 12/04/18 @ 15:24 by Javon Zapata MD) Mother Cancer Father Cancer Brother HLD (hyperlipidemia) History Items: - - Cervical cancer Paternal Family History: Family History (Last Reviewed 12/04/18 @ 15:24 by Javon Zapata MD) Mother Cancer Father Cancer Brother HLD (hyperlipidemia) History Items: Cancer Review of Systems Constitutional: Reports: Anorexia, Chills, Fever, Weakness, Fatigue HEENT: Denies: Head Aches, Sinus Congestion, Sinus Drainage Cardiovascular: Reports: Light Headedness. Denies: Chest Pain, Edema, Palpitations Respiratory: Denies: Cough, Shortness of breath at rest, Sputum production Gastrointestinal: Reports: Abdominal Pain, Diarrhea, Nausea, Vomiting Genitourinary: Reports: - - Low urine output. Denies: Dysuria Musculoskeletal: Denies: Joint Pain, Joint Tenderness Skin: Denies: Rash, Wounds Neurological: Denies: Numbness, Tingling, Focal weakness Psychiatric: Denies: Anxiety, Depression, Homicidal Ideations, Suicidal Ideations Hematologic/ Lymphatic: Denies: Easy Bruising, Easy Bleeding VTE Information - Inpt Only VTE Present on Admission: No VTE Mechan Device Prophylaxis: None VTE Pharm Prophylaxis ordered?: Yes - Physical Exam Vitals/I&O's: Vital Signs Temp Pulse Resp BP Pulse Ox 97.6 F L 106 H 20 H 101/70 99 05/13/19 17:33 05/13/19 17:33 05/13/19 17:33 05/13/19 17:33 05/13/19 17:00 Oxygen Flow Rate (L/min) 3 Oxygen Delivery Method Room Air Weight: 230 lb Body Mass Index (BMI) 30.3 Intake and Output for Last 24 Hours 05/11/19 05/12/19 05/13/19 23:59 23:59 23:59 Intake Total 1999 Balance 1999 General: Alert, Oriented x3, Cooperative, - - Ill appearance HEENT: Atraumatic, PERRLA, EOMI, Normocephalic Oral: Dry Mucosa Neck: Supple, No JVD, Negative Carotid Bruits Lungs: Clear to auscultation, Tachypneic Cardiovascular: Regular Rhythm, Normal S1, Normal S2, Tachycardic Abdomen: Bowel Sounds Present, Soft, Non-Distended, Obese, Tender Extremities: No clubbing, No cyanosis, No edema, Capillary Refill Less than 3 Seconds Skin: No rashes, No breakdown Musculoskeletal: No Tenderness to Palpation of Joints or Extremities Neurological: Cranial nerves II-XII grossly intact, Neuro grossly intact Psych/Mental Status: Normal Affect, Appropriate Laboratory Results 05/13/19 16:00: WBC 14.9 H, RBC 6.40 H, Hgb 19.1 H*, Hct 55.8 H, MCV 87.2, MCH 29.8, MCHC 34.2, RDW Std Deviation 42.5, RDW Coeff of Teet[place] 13.4, Plt Count 269, MPV 11.8, Immature Gran % (Auto) 0.300, Neut % (Auto) 78.3 H, Lymph % (Auto) 9.6 L, Rhea % (Auto) 10.8 H, Eos % (Auto) 0.6, Baso % (Auto) 0.4, Absolute Neuts (auto) 11.7 H, Absolute Lymphs (auto) 1.43, Nucleated RBC % 0, Differential Comment SCANNED, Diff Path Review October05/13/19 16:00: Sodium 125 L, Potassium 3.7, Chloride 85 L, Carbon Dioxide 13.0 L, Anion Gap 27 H, BUN 100 H, Creatinine 16.80 H*, Estim Creat Clear Calc 5.02, Est GFR (MDRD) Af Amer 4 L, Est GFR (MDRD) Non-Af 3 L, BUN/Creatinine Ratio 6.0 L, Glucose 167 H, Calcium 8.5, Total Bilirubin 0.60, AST 15, ALT 36, Alkaline Phosphatase 116, Troponin I < 0.015, Total Protein 10.1 H, Albumin 3.6, Globulin 6.5 H, Albumin/Globulin Ratio 0.6 L, Lipase 663 H, TSH 1.03, Thyroxine (T4) 10.0 05/13/19 16:00: Lactic Acid 5.5 H* 05/13/19 16:00: PT Cancelled, INR Cancelled, APTT Cancelled 05/13/19 16:12: Specimen Type JULISSA, Sample Site OTHER, VBG pH 7.11 L*, VBG pO2 33, VBG O2 Sat (Calc) 46 L, VBG O2 Content 12 L, VBG Base Excess -18 L, POC Mix VBG pCO2 Pt Tmp 35.0 L, Blood Gas Notified Whom ED MD, Blood Gas Notified Time 1605 05/13/19 17:24: PT 15.2 H, INR 1.2, APTT 28.3 Assessment/Plan 1. Intractable nausea, vomiting, diarrhea secondary to suspected foodborne illness-aggressive IV fluids. N.p.o. except sips and chips. Obtain stool sample for enteric bacteriology, ova and parasites. PRN antiemetics. CT of abdomen on admission shows no evidence of superior mesenteric artery occlusion, no free abdominal fluid. CT of abdomen and pelvis without evidence of obstructive uropathy, intestinal pathology or colitis. 2. Acute renal failure on CKD stage III-secondary to above. Aggressive IV fluids. Nephrology consult. Trend BMP. 3. Metabolic acidosis-treat underlying process as noted above. 4. Hypovolemic hyponatremia-IV fluids, trend BMP. 5. Lactic acidosis, leukocytosis-suspect reactive secondary to dehydration. Repeat lactic acid per protocol. Aggressive IV fluids per above. CXR unremarkable. Obtain urinalysis. Imaging without infectious process as noted above. Blood cultures pending. 6. Alcohol dependence-patient reports 3-4 vodka drinks per night. CIWA protocol. 7. CAD status post CABG and stents- follows with Dr. Zapata. Continue aspirin, statin, Plavix, isosorbide, beta-amadou when able to tolerate oral intake and blood pressure improved. 8. Hypertension-hold BP regimen given hypotension. 9. Hyperlipidemia-continue statin when able to tolerate oral intake. 10. GERD-PPI. 11. Former tobacco use-encouraged continued cessation. DVT prophylaxis- heparin sc This patient was seen by KYLAH Ovalle under the supervision of Dr. Vincent. <Cat Vincent - Last Filed: 05/13/19 19:24> History of Present Illness The patient is a 63 year old M [] Past Medical History Medical History: Medical History (Last Reviewed 12/04/18 @ 15:24 by Javon Zapata MD) Atherosclerosis of coronary artery bypass graft without angina pectoris (Chronic) I25.810 PCI-SAVI-Mid LAD 06/06/08; TQI-UQV-Fccmzv and Prox RCA 01/11/2016 CABG X 4 CANTRELL-LAD, SVG- Ramus, SVG-D1, left radial artery to the RCA bifurcation 12/03/2007 Essential (primary) hypertension (Chronic) I10 History of inferior wall myocardial infarction (Chronic) Onset Date: 2015 I25.2 Ischemic cardiomyopathy (Chronic) I25.5 Paroxysmal ventricular tachycardia (Chronic) I47.2 Atherosclerotic heart disease of [place]' coronary artery with other forms of angina pectoris (Chronic) I25.118 HLD (hyperlipidemia) (Chronic) E78.5 Hx of non-ST elevation myocardial infarction (NSTEMI) I25.2 Allergies No Known Allergies Allergy (Verified 05/13/19 15:46) Surgical History: Surgical History (Last Reviewed 06/04/19 @ 15:24 by Javon Zapata MD) H/O coronary artery bypass surgery (Resolved) Onset Date: 12/03/07 Z95.1 CABG X 4 CANTRELL-LAD, SVG- Ramus, SVG-D1, left radial artery to the RCA bifurcation 12/03/2007 History of coronary artery stent placement (Resolved) Onset Date: 01/11/16 Z95.5 PCI-SAVI-Mid LAD 06/06/08; [id number]-Qnzq RCA w/ 3.5 x 28 mm Vision and BMS- Distal RCA w/ 4.5 x 28 mm Rebel Stent 01/11/2016 - *Family History Maternal Family History: Family History (Last Reviewed 12/04/18 @ 15:24 by Javon Zapata MD) Mother Cancer Father Cancer Brother HLD (hyperlipidemia) Paternal Family History: Family History (Last Reviewed 12/04/18 @ 15:24 by Javon Zapata MD) Mother Cancer Father Cancer Brother HLD (hyperlipidemia) - Physical Exam Vitals/I&O's: Vital Signs Temp Pulse Resp BP Pulse Ox 97.6 F L 102 H 25 H 101/70 99 05/13/19 18:07 05/13/19 18:07 05/13/19 18:07 05/13/19 18:07 05/13/19 18:07 Oxygen Flow Rate (L/min) 2 Oxygen Delivery Method Nasal Cannula Weight: 104.326 kg Body Mass Index (BMI) 30.3 Intake and Output for Last 24 Hours 05/11/19 05/12/19 05/13/19 23:59 23:59 23:59 Intake Total 1999 Balance 1999 Laboratory Results 05/13/19 16:00: WBC 14.9 H, RBC 6.40 H, Hgb 19.1 H*, Hct 55.8 H, MCV 87.2, MCH 29.8, MCHC 34.2, RDW Std Deviation 42.5, RDW Coeff of [place]et[place] 13.4, Plt Count 269, MPV 11.8, Immature Gran % (Auto) 0.300, Neut % (Auto) 78.3 H, Lymph % (Auto) 9.6 L, Rhea % (Auto) 10.8 H, Eos % (Auto) 0.6, Baso % (Auto) 0.4, Absolute Neuts (auto) 11.7 H, Absolute Lymphs (auto) 1.43, Nucleated RBC % 0, Differential Comment SCANNED, Diff Path Review October05/13/19 16:00: Sodium 125 L, Potassium 3.7, Chloride 85 L, Carbon Dioxide 13.0 L, Anion Gap 27 H, BUN 100 H, Creatinine 16.80 H*, Estim Creat Clear Calc 5.02, Est GFR (MDRD) Af Amer 4 L, Est GFR (MDRD) Non-Af 3 L, BUN/Creatinine Ratio 6.0 L, Glucose 167 H, Calcium 8.5, Total Bilirubin 0.60, AST 15, ALT 36, Alkaline Phosphatase 116, Troponin I < 0.015, Total Protein 10.1 H, Albumin 3.6, Globulin 6.5 H, Albumin/Globulin Ratio 0.6 L, Lipase 663 H, TSH 1.03, Thyroxine (T4) 10.0 05/13/19 16:00: Lactic Acid 5.5 H* 05/13/19 16:00: PT Cancelled, INR Cancelled, APTT Cancelled 05/13/19 16:12: Specimen Type JULISSA, Sample Site OTHER, VBG pH 7.11 L*, VBG pO2 33, VBG O2 Sat (Calc) 46 L, VBG O2 Content 12 L, VBG Base Excess -18 L, POC Mix VBG pCO2 Pt Tmp 35.0 L, Blood Gas Notified Whom ED MD, Blood Gas Notified Time 1605 05/13/19 17:24: PT 15.2 H, INR 1.2, APTT 28.3 Current Medications Sodium Chloride () 10 - 40 ml IV UD PRN PRN Reason: SALINE FLUSH Assessment/Plan This patient was seen in conjunction with Deborah Bland NP. I have independently interviewed and examined the patient and reviewed pertinent historical, laboratory, and other data. Please refer to her note for patient's presentation, findings, and recommendations. 63-year-old male with past medical history of CAD status post CABG, stents, hypertension, ischemic cardiomyopathy comes in with complaints of persistent nausea, vomiting and diarrhea as well as abdominal cramps ongoing for about 5 days. Patient admits to cooking chicken and eating a piece of cheese after touching the road chicken without washing his hands. He developed nausea and vomiting and has had intractable diarrhea. He is unable to keep down any food or drink. He has generalized abdominal cramps. He feels very fatigued and l ightheaded. Worse when he was standing this morning. He fell in the bathroom and lost consciousness for a couple of seconds. Denied any fever but has chills. Denied any palpitations or chest pain At the time of being seen, patient continues to have abdominal discomfort. The last time he had vomiting was in the morning. He has had one large bowel movement, nonbloody in the emergency department. Vitals were reviewed -temperature 97.5 F, HR 106, BP 118/70, RR 20, spO2 100% on 3L oxygen Physical Exam: Gen: Looks in some discomfort, not pale, not jaundiced, alert oriented x3, obese, CVS:HS I +II, regular, no murmurs RESP: Diminished at lung bases GI: BS present and normal, nontender, no palpable organs EXT:No edema Labs reviewed: ASSESSMENT: 1. JESI, likely prerenal in the setting of acute gastroenteritis 2. Acute gastroenteritis 3. Metabolic acidosis secondary to acute kidney injury and acute gastroenteritis 4. Lactic acid secondary to hypoxia and dehydration 5. Acute respiratory insufficiency 6. Leukocytosis likely reactive, no signs of sepsis 7. Hyponatremia secondary to acute gastroenteritis/JESI 8. Hypertension Meds reviewed -Home meds on hold for now Plan: Admit to ICU, aggressive IV fluids, Nephrology and ICU consult Sodium bicarb IV per nephrology BMP every 4 Contact precautions, stool for enteric panel Repeat lactic acid per protocol Code Visit Inpatient E&M: 90372 Init Hosp L3
[2019-05-13] MEDS: 0.45% Normal Saline 1,000 ML 125 ML IV (19:49)
[2019-05-13] MEDS: 0.9% Saline Lock 10 ML Syringe IV (19:49)
[2019-05-13 19:52] LABS: Color, Urine Amber (Yellow); Glucose, Dipstick 50 mg/dl (Normal); Ketone-Dipstick 5 mg/dl (Negative); Leukocyte Esterase-Dipstick 100 /ul (Negative); Nitrite-Dipstick Negative (Negative); Occult Blood-Urine 150 /ul (Negative); Protein-Dipstick 100 mg/dl (Negative); Specific Gravity, Urine 1.025 (1.002-1.030); Urine Clarity Cloudy (Clear); Urine Urobilinogen 1 mg/dl (Normal)
[2019-05-13 19:53] LABS: Urine Bilirubin Dipstick 3 mg/dL (Negative)
[2019-05-13 19:59] LABS: Mucous, Urine 1+ /hpf (<or=2+)
[2019-05-13 20:00] LABS: Bacteria 1+ /hpf (None Seen); Squamous Epithelial Cells - UA 0-5 SEEN /hpf (0-5); White Blood Cells 5-10 SEEN /hpf (0-5)
[2019-05-13 20:01] LABS: Red Blood Cells-Urine 0-5 SEEN /hpf (0-5)
[2019-05-13 20:11] LABS: Reflex Lactate? Y
[2019-05-13 20:47] LABS: Anion Gap 23 (5-15); BUN 103 mg/dL (7-18); BUN/Creat Ratio 6.6 RATIO (10-20); Calcium,Total 7.3 mg/dL (8.5-10.1); Chloride 92 mmol/L (98-107); EST Glomerular Filtration Rate 3 mL/min (>60); Est Glom Filt Rate - Afr Amer 4 mL/min (>60); Estimated Creatinine Clearance 5.41 ml/min; Glucose 139 mg/dL (74-106); Potassium 4.1 mmol/L (3.5-5.1); Sodium Level 128 mmol/L (136-145)
[2019-05-13 20:56] LABS: Bedside Glucose 146 mg/dL (70-110)
[2019-05-13 21:36] LABS: Lactic Acid 2.4 mmol/L (0.4-2.0)
[2019-05-13 23:43] LABS: Anion Gap 22 (5-15); BUN 106 mg/dL (7-18); BUN/Creat Ratio 6.8 RATIO (10-20); Chloride 91 mmol/L (98-107); EST Glomerular Filtration Rate 3 mL/min (>60); Est Glom Filt Rate - Afr Amer 4 mL/min (>60); Estimated Creatinine Clearance 5.37 ml/min; Glucose 192 mg/dL (74-106); Potassium 4.7 mmol/L (3.5-5.1); Sodium Level 127 mmol/L (136-145)
[2019-05-14] VITALS (35 sets, daily range): BP systolic 70–131; BP diastolic 43–119; PULSE 92–135; RESP 17–29; TEMP 36.1–37.8; O2SAT 91–96
[2019-05-14] MEDS: Insulin Lispro 100 UNIT/ML INSULN.PEN SC (00:26)
[2019-05-14 00:42] LABS: Reflex Lactate? Y
[2019-05-14 01:43] LABS: Lactic Acid 2.7 mmol/L (0.4-2.0)
[2019-05-14] MEDS: 0.45% Normal Saline 1,000 ML 125 ML IV (03:32)
[2019-05-14 03:50] LABS: Absolute Neutrophil Count 9.6 X10^3/uL (2.0-7.7); Basophil# 0.01 X10^3/uL; Basophil% 0.1 % (0-1); Eosinophil# 0.07 X10^3/uL; Eosinophils% 0.5 % (0-5); Hematocrit 50.1 % (40-54); Hemoglobin 17.2 g/dL (13.0-16.5); Lymphocyte % 8.6 % (19-41); Mean Corp Hgb Conc 34.3 g/dL (32-36); Mean Corpuscular Hgb 29.6 pg (27.0-32.0); Mean Corpuscular Volume 86.2 fL (80-94); Mean Platelet Vol. 11.7 fl (6.2-12.0); Monocyte# 1.91 X10^3/uL; NRBC Flagged by Analyzer 0 % (0-5); Neutrophil # 9.59 X10^3/uL (2.7-7.7); Neutrophil % 75.1 % (47-70); POSITIVE COUNT YES; POSITIVE DIFFERENTIAL YES; POSITIVE MORPHOLOGY YES; Platelet Count 198 K/mm3 (150-450); RBC Distribution Width CV 13.1 % (11.6-14.6); RBC Distribution Width SD 40.9 fl (35.1-43.9); Red Blood Count 5.81 M/mm3 (4.6-6.2); White Blood Count 12.8 K/mm3 (4.4-11.0)
[2019-05-14 04:10] LABS: ALB/GLOB Ratio 0.5 RATIO (0.9-2.4); AST(SGOT) 15 U/L (15-37); Alanine Aminotransfer ALT/SGPT 26 U/L (16-61); Albumin, Serum 2.6 g/dL (3.2-5.0); Alkaline Phosphatase 84 U/L (45-117); Anion Gap 25 (5-15); BUN 113 mg/dL (7-18); BUN/Creat Ratio 6.8 RATIO (10-20); Calcium,Total 6.9 mg/dL (8.5-10.1); Chloride 91 mmol/L (98-107); EST Glomerular Filtration Rate 3 mL/min (>60); Est Glom Filt Rate - Afr Amer 4 mL/min (>60); Estimated Creatinine Clearance 5.11 ml/min; Globulin 5.1 g/dL (2.2-4.2); Glucose 145 mg/dL (74-106); Potassium 4.3 mmol/L (3.5-5.1); Protein, Total 7.7 g/dL (6.4-8.2); Sodium Level 128 mmol/L (136-145)
[2019-05-14 04:30] LABS: Differential Indicated SCAN CRITERIA MET
[2019-05-14 04:32] LABS: Differential Comment SCANNED; Platelet Estimate ADEQUATE (ADEQ); Platelet Morphology CLUMPED
--- NOTE | 2019-05-14 07:16 | US_ITS ---
STUDY: RENAL ULTRASOUND - COMPLETE REASON FOR EXAM: Male, 63 years old. Acute renal failure. TECHNIQUE: Ultrasound evaluation of the kidneys was performed with real-time and static russo-scale imaging. COMPARISON: None. FINDINGS: RIGHT KIDNEY: Normal location of the right kidney, which is normal in size. The right kidney measures 10.8 cm x 4.1 cm x 5.9 cm. There is a normal cortex of the right kidney. The renal cortex measures 1.7 cm. There is no right renal mass or cyst. There are no right renal calculi. There is no right hydronephrosis. DISTAL RIGHT URETER: There is non-visualization of the distal right ureter. There is no demonstrated right ureterovesical junction calculus. There is a visualized right ureteral jet. LEFT KIDNEY: Normal location of the left kidney, which is normal in size. The left kidney measures 11.5 cm x 4.5 cm x 6.5 cm. There is a normal cortex of the left kidney. The renal cortex measures 1.6 cm. There is no left renal mass or cyst. There are no left renal calculi. There is no left hydronephrosis. DISTAL LEFT URETER: There is non-visualization of the distal left ureter. There is no demonstrated left ureterovesical junction calculus. There is a visualized left ureteral jet. BLADDER: The bladder was not visualized at this time. US/Kidney and Bladder IMPRESSION: Normal ultrasound of the kidneys and urinary bladder. Electronically Signed: Randy Warner, at 9:10 EST , Service support ,
--- NOTE | 2019-05-14 07:43 | CON.PCM_ITS ---
Problem List (1) Infectious diarrhea in adult patient Status: Suspected (2) Acute renal failure Status: Acute Qualifiers: Acute renal failure type: with acute tubular necrosis Qualified Code(s): N17.0 - Acute kidney failure with tubular necrosis (3) H/O coronary artery bypass surgery Status: Chronic Comment: CABG X 4 CANTRELL-LAD, SVG- Ramus, SVG-D1, left radial artery to the RCA bifurcation 12/03/2007 (4) Atherosclerosis of coronary artery bypass graft without angina pectoris Status: Chronic Comment: PCI-SAVI-Mid LAD 06/06/08; [id number]-GYR-Bowqbr and Prox RCA 01/11/2016 CABG X 4 CANTRELL-LAD, SVG- Ramus, SVG-D1, left radial artery to the RCA bifurcation 12/03/2007 (5) Essential (primary) hypertension Status: Chronic (6) Ischemic cardiomyopathy Status: Chronic (7) History of coronary artery stent placement Status: Chronic Comment: PCI-SAVI-Mid LAD 06/06/08; [id number] RCA w/ 3.5 x 28 mm Vision and BMS-Distal RCA w/ 4.5 x 28 mm Rebel Stent 01/11/2016 (8) Paroxysmal ventricular tachycardia Status: Chronic (9) HLD (hyperlipidemia) Status: Chronic Qualifiers: Hyperlipidemia type: pure hypercholesterolemia Qualified Code(s): E78.00 - Pure hypercholesterolemia, unspecified; E78.0 - Pure hypercholesterolemia Reason for Consult Date of Consultation: 05/14/19 Reason for Consultation: Hypotension/acute renal failure History of Present Illness: The patient is a 63 year old M, with past medical history listed below, who presented to [facility] on 05/13/2019 secondary to nausea, vom iting, diarrhea and abdominal cramping. Patient states that symptoms began approximately 5 days ago following bad chicken. Patient has had multiple episodes of loose watery diarrhea since that time. Patient does not believe that he has had any fevers, but has had diffuse cramping throughout his abdomen. Patient reportedly has been unable to keep his blood pressure/heart medications down secondary to this condition. Patient does have a history of congestive heart failure with CABG and previous stenting. Patient does not believe there is been any blood in his bowel movements. In the ER, patient's blood pressure was adequate. Patient was slightly tachypneic at 22 breaths/min and bradycardic at 44 bpm. Patient was noted to be 89% on room air. Patient reportedly had some mottling on his abdominal wall. Patient also noted to be in new onset A. fib. CTA of the abdomen was obtained for concern of an acute vascular process. This was unremarkable. Laboratory work-up showed a leukocytosis with concentration of all blood lines and an elevated lactate of 5.5. Patient was also noted to be in acute renal failure with creatinine of almost 17 and a BUN over 100. Patient denied any history of previous kidney issues. Patient was admitted to the intensive care unit on a bicarbonate and D5 half-normal saline hydration. Nephrology was reportedly contacted by the ER, but no notes are available. Patient denies any pruritus, jaundice or hematemesis. Patient does report that he was an extensive smoker in the past, but quit in 2007. 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 Patient does report having 3 vodka drinks nightly, but does not normally become shaky if he misses his drinks. Patient describes himself as a efrain, but denies drinking any fresh water in the [place] or searching out mushrooms. Patient does not have any significant travel history. Patient reports he is currently retired and denies any exposure to TB or asbestos. Patient has not been on antibiotics recently. Review of systems otherwise negative from a constitutional, HEENT, respiratory, cardiovascular, GI, genitourinary, musculoskeletal, skin, neurologic, psychiatric and hematologic system unless stated above. Past Medical History Past Medical History (Chronic Problems): Chronic Problems (Last Reviewed 12/04/18 @ 15:24 by Javon Zapata MD) H/O coronary artery bypass surgery (Chronic 12/03/07) CABG X 4 CANTRELL-LAD, SVG- Ramus, SVG-D1, left radial artery to the RCA bifurcation 12/03/2007 Atherosclerosis of coronary artery bypass graft without angina pectoris (Chronic) PCI-SAVI-Mid LAD 06/06/08; [id number]-[id number]-Ldyrqj and Prox RCA 01/11/2016 CABG X 4 CANTRELL-LAD, SVG- Ramus, SVG-D1, left radial artery to the RCA bifurcation 12/03/2007 Essential (primary) hypertension (Chronic) History of inferior wall myocardial infarction (Chronic 2015) Ischemic cardiomyopathy (Chronic) History of coronary artery stent placement (Chronic 01/11/16) PCI-SAVI-Mid LAD 06/06/08; [id number]-Siiv RCA w/ 3.5 x 28 mm Vision and BMS- Distal RCA w/ 4.5 x 28 mm Rebel Stent 01/11/2016 Paroxysmal ventricular tachycardia (Chronic) Atherosclerotic heart disease of [place] coronary artery with other forms of angina pectoris (Chronic) HLD (hyperlipidemia) (Chronic) Medical History: Medical History (Last Reviewed 12/04/18 @ 15:24 by Javon Zapata MD) Atherosclerosis of coronary artery bypass graft without angina pectoris (Chronic) I25.810 PCI-SAVI-Mid LAD 06/06/08; QBY-MJM-Tvsayz and Prox RCA 01/11/2016 CABG X 4 CANTRELL-LAD, SVG- Ramus, SVG-D1, left radial artery to the RCA bifurcation 12/03/2007 Essential (primary) hypertension (Chronic) I10 History of inferior wall myocardial infarction (Chronic) Onset Date: 2015 I25.2 Ischemic cardiomyopathy (Chronic) I25.5 Paroxysmal ventricular tachycardia (Chronic) I47.2 Atherosclerotic heart disease of [place] coronary artery with other forms of angina pectoris (Chronic) I25.118 HLD (hyperlipidemia) (Chronic) E78.5 Hx of non-ST elevation myocardial infarction (NSTEMI) I25.2 Allergies No Known Allergies Allergy (Verified 05/13/19 15:46) Home Medications: Ambulatory Orders Medication Instructions Recorded Aspirin [Aspirin, Baby] 81 mg PO DAILY@0800 04/29/13 nitroglycerin 0.4 mg sublingual 0.4 mg SUBLINGUAL Q5M PRN #25 tab 11/16/17 tablet metoprolol succinate ER 100 mg 100 mg PO DAILY #90 tab 05/11/18 tablet,extended release 24 hr clopidogrel 75 mg tablet 75 mg PO DAILY #90 tab 08/02/18 pantoprazole 40 mg tablet,delayed 40 mg PO DAILY #90 tab 11/05/18 release amlodipine 10 mg tablet 10 mg PO DAILY #90 tab 11/09/18 atorvastatin 80 mg tablet 80 mg PO QHS #90 tab 12/04/18 lisinopril 10 mg tablet 10 mg PO DAILY 12/04/18 isosorbide mononitrate ER 60 mg 60 mg PO BID #180 tab 08/12/19 tablet,extended release 24 hr Surgical History: Surgical History (Last Reviewed 12/04/18 @ 15:24 by Javon Zapata MD) H/O coronary artery bypass surgery (Chronic) Onset Date: 12/03/07 Z95.1 CABG X 4 CANTRELL-LAD, SVG- Ramus, SVG-D1, left radial artery to the RCA bifurcation 12/03/2007 History of coronary artery stent placement (Chronic) Onset Date: 01/11/16 Z95.5 PCI-SAVI-Mid LAD 06/06/08; [id number] RCA w/ 3.5 x 28 mm Vision and BMS- Distal RCA w/ 4.5 x 28 mm Rebel Stent 01/11/2016 Surgical History: coronary bypass surgery - 2007 Psychiatric History: No pertinent psych hx Lives: Spouse/ Significant Other Smoking Status: Former smoker Tobacco Use: Cigarettes Alcohol: Heavy Drugs: None - *Family History Maternal Family History: Family History (Last Reviewed 12/04/18 @ 15:24 by Javon Zapata MD) Mother Cancer Father Cancer Brother HLD (hyperlipidemia) History Items: - - Cervical cancer Paternal Family History: Family History (Last Reviewed 12/04/18 @ 15:24 by Javon Zapata MD) Mother Cancer Father Cancer Brother HLD (hyperlipidemia) History Items: Cancer Review of Systems Comment: See HPI Patient Problems: Active and Suspected Problems (Last Reviewed 12/04/18 @ 15:24 by Javon Zapata MD) Infectious diarrhea in adult patient (Suspected) Acute renal failure (Acute) Objective: All imaging was personally reviewed and relatively unremarkable. Chest x-ray did not show any acute infiltrates - Physical Exam Vitals/I&O's: Vital Signs Temp Pulse Resp BP Pulse Ox 36.9 C 121 H 23 H 92/68 96 05/14/19 04:00 05/14/19 06:00 05/14/19 06:00 05/14/19 06:00 05/14/19 06:00 Oxygen Flow Rate (L/min) 2 Oxygen Delivery Method Nasal Cannula Weight: 106.9 kg Body Mass Index (BMI) 31.1 Intake and Output for Last 24 Hours 05/12/19 05/13/19 05/14/19 23:59 23:59 23:59 Intake Total 1999 2245.41 / 2245.41 Output Total 1060 / 1060 Balance 1999 / 1394 1185.41 / 1185.41 General: Alert, Oriented x3, Cooperative, - - Mild distress. Obese. No conversational dyspnea. HEENT: Atraumatic, PERRLA, EOMI, Normocephalic, - - No scleral icterus or injection noted. Oral: No Gingival or Mucosal Lesions/ Ulcerations, Dry Mucosa Neck: Supple, No Nodes, Trachea Midline, JVD, Right Lungs: No rhonchi, No wheeze, No rales, Diminished, - - Symmetric expansion. No dullness to percussion. Cardiovascular: Normal S1, Normal S2, No murmurs, No rub noted, No Gallop, Tachycardic Abdomen: Soft, Non Tender, Hyperactive Bowel Sounds, Distended Extremities: No clubbing, No cyanosis, No edema, Capillary Refill Less than 3 Seconds Skin: No rashes, No breakdown Musculoskeletal: No Tenderness to Palpation of Joints or Extremities Lymphatic: No Cervical, Supraclavicular, or Inguinal Adenopathy Neurological: Cranial nerves II-XII grossly intact, Neuro grossly intact, Motor Exam 5/5 strength throughout Psych/Mental Status: Alert and oriented to time, place, person, mood and affect Microbiology Past 72 Hours 05/13/19 19:25 Stool C. difficile DNA Amplification - Final Laboratory Results 05/13/19 16:00: WBC 14.9 H, RBC 6.40 H, Hgb 19.1 H*, Hct 55.8 H, MCV 87.2, MCH 29.8, MCHC 34.2, RDW Std Deviation 42.5, RDW Coeff of [place] 13.4, Plt Count 269, MPV 11.8, Immature Gran % (Auto) 0.300, Neut % (Auto) 78.3 H, Lymph % (Auto) 9.6 L, [place] % (Auto) 10.8 H, Eos % (Auto) 0.6, Baso % (Auto) 0.4, Absolute Neuts (auto) 11.7 H, Absolute Lymphs (auto) 1.43, Nucleated RBC % 0, Differential Comment SCANNED, Diff Path Review October05/13/19 16:00: Sodium 125 L, Potassium 3.7, Chloride 85 L, Carbon Dioxide 13.0 L, Anion Gap 27 H, BUN 100 H, Creatinine 16.80 H*, Estim Creat Clear Calc 5.02, Est GFR (MDRD) Af Amer 4 L, Est GFR (MDRD) Non-Af 3 L, BUN/Creatinine Ratio 6.0 L, Glucose 167 H, Calcium 8.5, Total Bilirubin 0.60, AST 15, ALT 36, Alkaline Phosphatase 116, Troponin I < 0.015, Total Protein 10.1 H, Albumin 3.6, Globulin 6.5 H, Albumin/Globulin Ratio 0.6 L, Lipase 663 H, TSH 1.03, Thyroxine (T4) 10.0 05/13/19 16:00: Lactic Acid 5.5 H* 05/13/19 16:00: PT Cancelled, INR Cancelled, APTT Cancelled 05/13/19 16:12: Specimen Type JULISSA, Sample Site OTHER, VBG pH 7.11 L*, VBG pO2 33, VBG O2 Sat (Calc) 46 L, VBG O2 Content 12 L, VBG Base Excess -18 L, POC Mix VBG pCO2 Pt Tmp 35.0 L, Blood Gas Notified Whom ED MD, Blood Gas Notified Time 1605 05/13/19 17:24: PT 15.2 H, INR 1.2, APTT 28.3 05/13/19 19:30: Urine Color Breanna, Urine Clarity Cloudy, Urine pH 5.0, Ur Specific [place] 1.025, Urine Protein 100 H, Urine Glucose (UA) 50 H, Urine Ketones 5 H, Urine Occult Blood 150 H, Urine Nitrite Negative, Urine Bilirubin 3 H, Urine Urobilinogen 1 H, Ur Leukocyte Esterase 100 H, Urine RBC 0-5 SEEN, Urine WBC 5-10 SEEN, Ur Squamous Epith Cells 0-5 SEEN, Urine Bacteria 1+, Urine Mucus 1+ 05/13/19 19:40: Sodium 128 L, Potassium 4.1, Chloride 92 L, Carbon Dioxide 13.0 L, Anion Gap 23 H, BUN 103 H*, Creatinine 15.60 H*, Estim Creat Clear Calc 5.41, Est GFR (MDRD) Af Amer 4 L, Est GFR (MDRD) Non-Af 3 L, BUN/Creatinine Ratio 6.6 L, Glucose 139 H, Calcium 7.3 L 05/13/19 19:40: Troponin I < 0.015 05/13/19 20:22: POC Glucose 146 H 05/13/19 20:25: Lactic Acid 2.4 H 05/13/19 23:15: Sodium 127 L, Potassium 4.7, Chloride 91 L, Carbon Dioxide 14.0 L, Anion Gap 22 H, BUN 106 H*, Creatinine 15.70 H*, Estim Creat Clear Calc 5.37, Est GFR (MDRD) Af Amer 4 L, Est GFR (MDRD) Non-Af 3 L, BUN/Creatinine Ratio 6.8 L, Glucose 192 H, Calcium 7.0 L 05/13/19 23:15: Troponin I < 0.015 05/14/19 01:10: Lactic Acid 2.7 H 05/14/19 03:25: WBC 12.8 H, RBC 5.81, Hgb 17.2 H, Hct 50.1, MCV 86.2, MCH 29.6, MCHC 34.3, RDW Std Deviation 40.9, RDW Coeff of [place] 13.1, Plt Count 198, MPV 11.7, Immature Gran % (Auto) 0.700, Neut % (Auto) 75.1 H, Lymph % (Auto) 8.6 L, [place] % (Auto) 15.0 H, Eos % (Auto) 0.5, Baso % (Auto) 0.1, Absolute Neuts (auto) 9.6 H, Absolute Lymphs (auto) 1.10, Nucleated RBC % 0, Differential Comment SCANNED, Diff Path Review October, Platelet Estimate ADEQUATE, Plt Morphology Comment CLUMPED 05/14/19 03:25: Sodium 128 L, Potassium 4.3, Chloride 91 L, Carbon Dioxide 12.0 L, Anion Gap 25 H, BUN 113 H*, Creatinine 16.50 H*, Estim Creat Clear Calc 5.11, Est GFR (MDRD) Af Amer 4 L, Est GFR (MDRD) Non-Af 3 L, BUN/Creatinine Ratio 6.8 L, Glucose 145 H, Calcium 6.9 L, Total Bilirubin 0.40, AST 15, ALT 26, Alkaline Phosphatase 84, Total Protein 7.7, Albumin 2.6 L, Globulin 5.1 H, Albumin/Globulin Ratio 0.5 L Clinical Impression(s) from Imaging Studies Abdomen CTA 05/13/19 15:59 IMPRESSION: No evidence of superior mesenteric artery occlusion or flow-limiting stenosis. Electronically Signed: Jayme Parekh MD at 16:33 EST Tel , Service support , Abdomen/Pelvis CT 05/13/19 16:53 IMPRESSION: No CT evidence of colitis. Specifically, no areas of colonic wall thickening or adjacent fatty attenuation. No evidence of acute intestinal pathology or acute obstructive uropathy. Electronically Signed: Jayme Parekh MD at 17:19 EST Tel , Service support , Chest X-Ray 05/13/19 17:40 IMPRESSION: Chronic interstitial lung changes without superimposed acute alveolar disease. Electronically Signed: Jayme Parekh MD at 18:05 EST Tel , Service support , Current Medications Acetaminophen (Tylenol) 650 mg PO Q6H PRN PRN PRN Reason: Pain Score 1-3/Temp > 100.7 F Dextrose (D50w Syringe) 0 gm IV X1 PRN; Protocol PRN Reason: Hypoglycemia Glucagon () 1 mg IM .X1 PRN PRN Reason: Hypoglycemia Sodium Bicarbonate 75 meq/ (Dextrose) 1,075 mls @ 100 mls/hr IV .[id number] [facility] Last Admin: 05/14/19 05:53 Dose: 100 mls/hr Documented by: Sodium Chloride () 1,000 mls @ 125 mls/hr IV .Q8H ALVA Last Infusion: 05/14/19 05:54 Dose: 125 mls/hr Documented by: Sodium Chloride () 500 mls @ 999 mls/hr IV .Q31M ONE Stop: 05/14/19 07:45 Sodium Chloride () 1,000 mls @ 150 mls/hr IV .Q6H40M [facility] Insulin Human Lispro (Humalog Kwikpen (Bkc)) 0 unit SC Q6 ALVA; Protocol Last Admin: 05/14/19 05:53 Dose: Not Given Documented by: Melatonin (Melatonin) 3 mg PO QHS PRN PRN PRN Reason: INSOMNIA Ondansetron HCl (Zofran) 4 mg IV Q8H PRN PRN PRN Reason: NAUSEA/VOMITING Sodium Chloride () 10 - 40 ml IV UD PRN PRN Reason: SALINE FLUSH Last Admin: 05/13/19 19:49 Dose: 10 ml Documented by: Assessment/Plan Active and Suspected Problems (Last Reviewed 12/04/18 @ 15:24 by Javon Zapata MD) Infectious diarrhea in adult patient (Suspected) Acute renal failure (Acute) RECOMMENDATIONS: 1. Continue aggressive hydration until hemodialysis 2. Possible hemodialysis later today, await nephrology recommendations 3. Wean oxygen as tolerated 4. Monitor rate control 5. Hemoccult stool 6. Possible nephritis work-up, await nephrology recommendations 7. Hold lisinopril IMPRESSIONS: 1. Acute renal failure Exact etiology is unclear at this time. Patient does have some suggestion of nephritic syndrome on UA. Patient also has significant diarrhea, so prerenal etiology would be a possibility. Clinical suspicion for the development of ATN given high creatinine and BUN. This likely has been going on for longer than 6 days and the diarrhea may be a result of the renal failure. Nephrology has been consulted. Patient may require temporary hemodialysis catheter placement with urgent dialysis. Patient is making marginal urine at this time. We will have to watch fluid status closely given patient's concomitant CHF. Hold LAUREEN inhibitor and other antihypertensive secondary to low BP 2. Possible infectious diarrhea Patient is describing possible exposure to raw chicken in the last week. Patient has stool studies currently pending. Will obtain Hemoccult of the stool. Patient is in contact precautions. Patient is not reporting any recent antibiotics to suggest C. difficile at this time. Diarrhea may be secondary to uremia given elevated creatinine and for several days of poor kidney function. 3. Anion gap and non-anion gap metabolic acidosis Patient with significant acidosis on presentation. Patient has been receiving bicarbonate. Clinical suspicion the patient will require hemodialysis for correction of acidosis. This may be the etiology of patient's lower blood pressures. 4. Alcohol dependence Patient does admit to 3-4 vodka drinks per night. Patient is on the CIWA protocol, but does not report a history of withdrawal symptoms in the past. We will continue to monitor. Likely discontinue CIWA protocol if no issues in the next 24 to 48 hours. Liver function appears to be intact. 5. Chronic systolic congestive heart failure status post CABG and stents/new onset A. fib Okay to continue with aspirin and Plavix for now. Would hold other medica tions during the acute phase. Patient may require volume removal with hemodialysis. Patient does not appear to be responding to hydration efforts at this time. Likely discontinue IV fluids once patient has hemodialysis. 6. Obesity/history of tobacco use/GERD/hyperlipidemia/hypertension Complicates care, management, recovery and prognosis. Patient would likely benefit from outpatient pulmonary function test for quantification and clarification of lung function. Antihypertensives have been held secondary to hypotension. Reasonable to hold statin at this time. Patient is on a PPI. Code Visit Inpatient E&M: 06305 Init Hosp L3
[2019-05-14] MEDS: 0.9% Normal Saline 1,000 ML 150 ML IV (08:17)
--- NOTE | 2019-05-14 08:44 | PCM.PN.HOSP ---
Patient Problems: Active and Suspected Problems (Last Reviewed 12/04/18 @ 15:24 by Javon Zapata MD) Infectious diarrhea in adult patient (Suspected) Acute renal failure (Acute) Subjective: Follow-up on JESI and acute gastroenteritis. Patient was seen and examined. He complains of cramps in his lower abdomen. He continues to have profuse diarrhea; has had multiple bowel movement; more than 1 L of stool charted. Blood pressure was low last night. Received a total of about 4.5 L of fluid. Urine output is 100 mls since admission. He has a poor appetite, feels slightly nauseous. Denies chest pain or dizziness or palpitations. Objective: Physical exam: General: Alert, Oriented x3, Cooperative, obese- - Ill appearance HEENT: Atraumatic, PERRLA, EOMI, Normocephalic Oral: Dry Mucosa Neck: Supple, No JVD, Negative Carotid Bruits Lungs: Clear to auscultation, Tachypneic Cardiovascular: Regular Rhythm, Normal S1, Normal S2, Tachycardic Abdomen: Bowel Sounds Present, Soft, Non-Distended, Obese, Tender around the lower abdomen Extremities: No clubbing, No cyanosis, No edema, Capillary Refill Less than 3 Seconds Skin: No rashes, No breakdown Musculoskeletal: No Tenderness to Palpation of Joints or Extremities Neurological: Cranial nerves II-XII grossly intact, Neuro grossly intact Psych/Mental Status: Normal Affect, Appropriate Vitals/I&O's: Vital Signs Temp Pulse Resp BP Pulse Ox 98.5 F 121 H 23 H 92/68 96 05/14/19 04:00 05/14/19 06:00 05/14/19 06:00 05/14/19 06:00 05/14/19 06:00 Oxygen Flow Rate (L/min) 2 Oxygen Delivery Method Room Air Weight: 106.9 kg Body Mass Index (BMI) 31.1 Intake and Output for Last 24 Hours 05/12/19 05/13/19 05/14/19 23:59 23:59 23:59 Intake Total 1999 2543.33 / 2543.33 Output Total 1060 / 1060 Balance 1999 1483.33 / 1483.33 Microbiology Past 72 Hours 05/14/19 08:00 Stool Stool Occult Blood (ZIYAD) - Final Occult Blood Positive 05/13/19 19:25 Stool C. difficile DNA Amplification - Final Laboratory Results 05/13/19 16:00: WBC 14.9 H, RBC 6.40 H, Hgb 19.1 H*, Hct 55.8 H, MCV 87.2, MCH 29.8, MCHC 34.2, RDW Std Deviation 42.5, RDW Coeff of Teetee 13.4, Plt Count 269, MPV 11.8, Immature Gran % (Auto) 0.300, Neut % (Auto) 78.3 H, Lymph % (Auto) 9.6 L, [place] % (Auto) 10.8 H, Eos % (Auto) 0.6, Baso % (Auto) 0.4, Absolute Neuts (auto) 11.7 H, Absolute Lymphs (auto) 1.43, Nucleated RBC % 0, Differential Comment SCANNED, Diff Path Review October05/13/19 16:00: Sodium 125 L, Potassium 3.7, Chloride 85 L, Carbon Dioxide 13.0 L, Anion Gap 27 H, BUN 100 H, Creatinine 16.80 H*, Estim Creat Clear Calc 5.02, Est GFR (MDRD) Af Amer 4 L, Est GFR (MDRD) Non-Af 3 L, BUN/Creatinine Ratio 6.0 L, Glucose 167 H, Calcium 8.5, Total Bilirubin 0.60, AST 15, ALT 36, Alkaline Phosphatase 116, Troponin I < 0.015, Total Protein 10.1 H, Albumin 3.6, Globulin 6.5 H, Albumin/Globulin Ratio 0.6 L, Lipase 663 H, TSH 1.03, Thyroxine (T4) 10.0 05/13/19 16:00: Lactic Acid 5.5 H* 05/13/19 16:00: PT Cancelled, INR Cancelled, APTT Cancelled 05/13/19 16:12: Specimen Type JUILSSA, Sample Site OTHER, VBG pH 7.11 L*, VBG pO2 33, VBG O2 Sat (Calc) 46 L, VBG O2 Content 12 L, VBG Base Excess -18 L, POC Mix VBG pCO2 Pt Tmp 35.0 L, Blood Gas Notified Whom ED , Blood Gas Notified Time 1603 05/13/19 17:24: PT 15.2 H, INR 1.2, APTT 28.3 05/13/19 19:30: Urine Color Breanna, Urine Clarity Cloudy, Urine pH 5.0, Ur Specific Vincent 1.025, Urine Protein 100 H, Urine Glucose (UA) 50 H, Urine Ketones 5 H, Urine Occult Blood 150 H, Urine Nitrite Negative, Urine Bilirubin 3 H, Urine Urobilinogen 1 H, Ur Leukocyte Esterase 100 H, Urine RBC 0-5 SEEN, Urine WBC 5-10 SEEN, Ur Squamous Epith Cells 0-5 SEEN, Urine Bacteria 1+, Urine Mucus 1+ 05/13/19 19:40: Sodium 128 L, Potassium 4.1, Chloride 92 L, Carbon Dioxide 13.0 L, Anion Gap 23 H, BUN 103 H*, Creatinine 15.60 H*, Estim Creat Clear Calc 5.41, Est GFR (MDRD) Af Amer 4 L, Est GFR (MDRD) Non-Af 3 L, BUN/Creatinine Ratio 6.6 L, Glucose 139 H, Calcium 7.3 L 05/13/19 19:40: Troponin I < 0.015 05/13/19 20:22: POC Glucose 146 H 05/13/19 20:25: Lactic Acid 2.4 H 05/13/19 23:15: Sodium 127 L, Potassium 4.7, Chloride 91 L, Carbon Dioxide 14.0 L, Anion Gap 22 H, BUN 106 H*, Creatinine 15.70 H*, Estim Creat Clear Calc 5.37, Est GFR (MDRD) Af Amer 4 L, Est GFR (MDRD) Non-Af 3 L, BUN/Creatinine Ratio 6.8 L, Glucose 192 H, Calcium 7.0 L 05/13/19 23:15: Troponin I < 0.015 05/14/19 01:10: Lactic Acid 2.7 H 05/14/19 03:25: WBC 12.8 H, RBC 5.81, Hgb 17.2 H, Hct 50.1, MCV 86.2, MCH 29.6, MCHC 34.3, RDW Std Deviation 40.9, RDW Coeff of Teetee 13.1, Plt Count 198, MPV 11.7, Immature Gran % (Auto) 0.700, Neut % (Auto) 75.1 H, Lymph % (Auto) 8.6 L, [place] % (Auto) 15.0 H, Eos % (Auto) 0.5, Baso % (Auto) 0.1, Absolute Neuts (auto) 9.6 H, Absolute Lymphs (auto) 1.10, Nucleated RBC % 0, Differential Comment SCANNED, Diff Path Review May foll, Platelet Estimate ADEQUATE, Plt Morphology Comment CLUMPED 05/14/19 03:25: Sodium 128 L, Potassium 4.3, Chloride 91 L, Carbon Dioxide 12.0 L, Anion Gap 25 H, BUN 113 H*, Creatinine 16.50 H*, Estim Creat Clear Calc 5.11, Est GFR (MDRD) Af Amer 4 L, Est GFR (MDRD) Non-Af 3 L, BUN/Creatinine Ratio 6.8 L, Glucose 145 H, Calcium 6.9 L, Total Bilirubin 0.40, AST 15, ALT 26, Alkaline Phosphatase 84, Total Protein 7.7, Albumin 2.6 L, Globulin 5.1 H, Albumin/Globulin Ratio 0.5 L Current Medications Acetaminophen (Tylenol) 650 mg PO Q6H PRN PRN PRN Reason: Pain Score 1-3/Temp > 100.7 F Dextrose (D50w Syringe) 0 gm IV X1 PRN; Protocol PRN Reason: Hypoglycemia Glucagon () 1 mg IM .X1 PRN PRN Reason: Hypoglycemia Sodium Bicarbonate 75 meq/ (Dextrose) 1,075 mls @ 100 mls/hr IV .[id number] [facility] Last Admin: 05/14/19 05:53 Dose: 100 mls/hr Documented by: Sodium Chloride () 1,000 mls @ 150 mls/hr IV .Q6H40M [facility] Last Admin: 05/14/19 08:17 Dose: 150 mls/hr Documented by: Insulin Human Lispro (Humalog Kwikpen (Bkc)) 0 unit SC Q6 ALVA; Protocol Last Admin: 05/14/19 05:53 Dose: Not Given Documented by: Melatonin (Melatonin) 3 mg PO QHS PRN PRN PRN Reason: INSOMNIA Ondansetron HCl (Zofran) 4 mg IV Q8H PRN PRN PRN Reason: NAUSEA/VOMITING Sodium Chloride () 10 - 40 ml IV UD PRN PRN Reason: SALINE FLUSH Last Admin: 05/13/19 19:49 Dose: 10 ml Documented by: STROKE Vital Signs/Narrative: Vital Signs Pulse Resp BP Pulse Ox 05/14/19 06:00 121 H 23 H 92/68 96 11/12/19 05:00 102 H 24 H 88/61 L 94 Medical Necessity - Tobacco Use Smoking Status: Former smoker Tobacco Use: Cigarettes Assessment/Plan All Active Problems (Last Reviewed 12/04/18 @ 15:24 by Javon Zapata MD) Acute renal failure (Acute) 1. JESI, likely prerenal in the setting of acute gastroenteritis, patient is almost anuric, creatinine remains unchanged, slightly worse. Suspect JESI not improvement in the light of ongoing diarrhea as well as hypotension. Home lisinopril held as well as blood pressure medications Plan: Continue aggressive IV fluids, repeat BMP at 12 noon, Nephrology consulted, We will check urine sodium, urine creatinine, follow-up on renal ultrasound 2. Acute gastroenteritis, C. difficile negative, enteric panel showed campylobacter Will start on IV azithromycin for 3 days, continue with supportive IVF 3. Metabolic acidosis secondary to acute kidney injury and acute gastroenteritis, no much improved Continue on bicarb drip 4. Lactic acid secondary to hypoxia and dehydration, improved to 2.7, continue to hydrate patient 5. Acute respiratory insufficiency, not on oxygen at home, currently on 2 L of oxygen History of ANKIT, not on CPAP Admitting chest x-ray showed chronic interstitial lung changes Continue to wean off oxygen for SPO2 more than 94% Patient will need a sleep study on discharge 6. Leukocytosis likely reactive, no signs of sepsis WBC count improved to 12.8, continue to trend 7. Hyponatremia secondary to acute gastroenteritis/JESI, Remains the same at 128, will continue to monitor 8. Hypertension, relatively hypotensive, on IV fluids Continue to hold off lisinopril, metoprolol as well as amlodipine Continue to monitor 9. CAD s/p stents, will resume aspirin and metoprolol 10. DVT PPx- Heparin SC Code Visit Inpatient E&M: 15589 Subs Hosp L3
[2019-05-14] MEDS: Lactated Ringers 1,000 ML 999 ML IV ×3 (09:35→12:49)
--- NOTE | 2019-05-14 10:14 | CASEMGMT ---
Social Work Referral received from RN BILLY for pt with alcohol dependence. At this time pt presenting with multiple medical concerns. SW will defer visit with pt until tomorrow. RICKEY Barrios
--- NOTE | 2019-05-14 10:16 | CASEMGMT ---
RN CM Note: participated in Interdisciplinary rounds. Pt may require temporary hemodialysis catheter placement today. Renal consult, HCO3- gtt, 2L NC, frequent loose stools, isolation. RN CM Assessment deferred for today. SW consult for ETOH use-recommend defer today due to medical needs. JOSE C Alba updated. Romero FISHN RN ACM
[2019-05-14 10:31] LABS: Urine Sodium 24 mmol/L (Not Establ.)
[2019-05-14] MEDS: Menthol/Lanolin/Calamine/Znox 113 GM Tube 1 APPLIC TOPICAL ×2 (10:31→23:15)
--- NOTE | 2019-05-14 11:44 | CON.PCM_ITS ---
Reason for Consult Date of Consultation: 05/14/19 Reason for Consultation: Acute kidney injury History of Present Illness: The patient is a 63 year old male with a past medical history as listed below who presented to this hospital yesterday evening with a chief complaint of nausea vomiting diarrhea abdominal cramps for about 5 days prior to admission. He states that he thinks he ate some bad chicken . He had multiple episodes of loose watery diarrhea since he ate the chicken. He denies fever chills. He has been unable to keep his blood pressure heart medications down secondary to to his condition. Initially his blood pressure was adequate in the emergency room but last night his blood pressure dropped to 75 and 85 systolic and he was bolused this morning of fluid again. He was also noted to be in atrial fibrillation. He had IV contrast with CTA. CTA was unremarkable. He had leukocytosis and concentration of all blood lines and an elevated lactate of 5.5. He denies any history of kidney failure. He was started on IV bicarb drip. He denies any jaundice hematemesis or hematochezia. There is no significant travel history out of state. He denies dysuria hematuria. He denies skin rashes dry eyes dry mouth arthralgias or myalgias. There is no history of rheumatologic or autoimmune disease. He denies using herbal traditional medications. His C. difficile was reportedly negative but his guaiac stool was positive. Past Medical History Past Medical History (Chronic Problems): Chronic Problems (Last Reviewed 12/04/18 @ 15:24 by Javon Zapata MD) H/O coronary artery bypass surgery (Chronic 12/03/07) CABG X 4 CANTRELL-LAD, SVG- Ramus, SVG-D1, left radial artery to the RCA bifurcation 12/03/2007 Atherosclerosis of coronary artery bypass graft without angina pectoris (Chronic) PCI-SAVI-Mid LAD 06/06/08; YKN-MGK-Eolcku and Prox RCA 01/11/2016 CABG X 4 CANTRELL-LAD, SVG- Ramus, SVG-D1, left radial artery to the RCA bifurcation 12/03/2007 Essential (primary) hypertension (Chronic) History of inferior wall myocardial infarction (Chronic 2015) Ischemic cardiomyopathy (Chronic) History of coronary artery stent placement (Chronic 01/11/16) PCI-SAVI-Mid LAD 06/06/08; [id number] RCA w/ 3.5 x 28 mm Vision and BMS- Distal RCA w/ 4.5 x 28 mm Rebel Stent 01/11/2016 Paroxysmal ventricular tachycardia (Chronic) Atherosclerotic heart disease of chilkoot coronary artery with other forms of angina pectoris (Chronic) HLD (hyperlipidemia) (Chronic) Medical History: Medical History (Last Reviewed 12/04/18 @ 15:24 by Javon Zapata MD) Atherosclerosis of coronary artery bypass graft without angina pectoris (Chronic) I25.810 PCI-SAVI-Mid LAD 06/06/08; ZXY-ZAR-Fohkct and Prox RCA 01/11/2016 CABG X 4 CANTRELL-LAD, SVG- Ramus, SVG-D1, left radial artery to the RCA bifurcat ion 12/03/2007 Essential (primary) hypertension (Chronic) I10 History of inferior wall myocardial infarction (Chronic) Onset Date: 2015 I25.2 Ischemic cardiomyopathy (Chronic) I25.5 Paroxysmal ventricular tachycardia (Chronic) I47.2 Atherosclerotic heart disease of chilkoot coronary artery with other forms of angina pectoris (Chronic) I25.118 HLD (hyperlipidemia) (Chronic) E78.5 Hx of non-ST elevation myocardial infarction (NSTEMI) I25.2 Allergies No Known Allergies Allergy (Verified 05/13/19 15:46) Home Medications: Ambulatory Orders Medication Instructions Recorded Aspirin [Aspirin, Baby] 81 mg PO DAILY@0800 04/29/13 nitroglycerin 0.4 mg sublingual 0.4 mg SUBLINGUAL Q5M PRN #25 tab 11/16/17 tablet metoprolol succinate ER 100 mg 100 mg PO DAILY #90 tab 05/11/18 tablet,extended release 24 hr clopidogrel 75 mg tablet 75 mg PO DAILY #90 tab 08/02/18 pantoprazole 40 mg tablet,delayed 40 mg PO DAILY #90 tab 11/05/18 release amlodipine 10 mg tablet 10 mg PO DAILY #90 tab 11/09/18 atorvastatin 80 mg tablet 80 mg PO QHS #90 tab 12/04/18 lisinopril 10 mg tablet 10 mg PO DAILY 12/04/18 isosorbide mononitrate ER 60 mg 60 mg PO BID #180 tab 02/11/19 tablet,extended release 24 hr Surgical History: Surgical History (Last Reviewed 12/04/18 @ 15:24 by Javon Zapata MD) H/O coronary artery bypass surgery (Chronic) Onset Date: 12/03/07 Z95.1 CABG X 4 CANTRELL-LAD, SVG- Ramus, SVG-D1, left radial artery to the RCA bifurcation 12/03/2007 History of coronary artery stent placement (Chronic) Onset Date: 01/11/16 Z95.5 PCI-SAVI-Mid LAD 06/06/08; [id number]-Hvmj RCA w/ 3.5 x 28 mm Vision and BMS- Distal RCA w/ 4.5 x 28 mm Rebel Stent 01/11/2016 Surgical History: coronary bypass surgery - 2007 Psychiatric History: No pertinent psych hx Lives: Spouse/ Significant Other Smoking Status: Former smoker Tobacco Use: Cigarettes Alcohol: Heavy Drugs: None - *Family History Maternal Family History: Family History (Last Reviewed 12/04/18 @ 15:24 by Javon Zapata MD) Mother Cancer Father Cancer Brother HLD (hyperlipidemia) History Items: - - Cervical cancer Paternal Family History: Family History (Last Reviewed 12/04/18 @ 15:24 by Javon Zapata MD) Mother Cancer Father Cancer Brother HLD (hyperlipidemia) History Items: Cancer Review of Systems Eyes: Reports: - - The review of systems is otherwise negative unless noted in the history of present illness. He denies chest pain shortness of breath fever chills headache. Patient Problems: Active and Suspected Problems (Last Reviewed 12/04/18 @ 15:24 by Javon Zapata MD) Infectious diarrhea in adult patient (Suspected) Acute renal failure (Acute) - Physical Exam Vitals/I&O's: Vital Signs Temp Pulse Resp BP Pulse Ox 97.7 F L 102 H 17 79/53 L 96 05/14/19 10:00 05/14/19 11:00 05/14/19 11:00 05/14/19 11:00 05/14/19 11:00 Oxygen Flow Rate (L/min) 2 Oxygen Delivery Method Nasal Cannula Weight: 106.9 kg Body Mass Index (BMI) 31.1 Intake and Output for Last 24 Hours 05/12/19 05/13/19 05/14/19 23:59 23:59 23:59 Intake Total 1999 3103.33 / 3103.33 Output Total 1160 / 1160 Balance 1999 1943.33 / 1943.33 General: Alert, Oriented x3, Cooperative HEENT: Atraumatic, PERRLA, EOMI, Normocephalic Neck: Supple, No JVD, Negative Carotid Bruits Lungs: Clear to auscultation, Normal air movement Cardiovascular: Regular rate, No murmurs Abdomen: Bowel Sounds Present, Soft, Obese, Tender, - - No guarding Extremities: No edema, Capillary Refill Less than 3 Seconds Skin: No rashes, No breakdown Musculoskeletal: No Tenderness to Palpation of Joints or Extremities Neurological: Cranial nerves II-XII grossly intact Psych/Mental Status: Normal Affect, Appropriate Microbiology Past 72 Hours 05/14/19 08:00 Stool Stool Occult Blood (ZIYAD) - Final Occult Blood Positive 05/13/19 19:25 Stool C. difficile DNA Amplification - Final Laboratory Results 05/13/19 16:00: WBC 14.9 H, RBC 6.40 H, Hgb 19.1 H*, Hct 55.8 H, MCV 87.2, MCH 29.8, MCHC 34.2, RDW Std Deviation 42.5, RDW Coeff of Teetee 13.4, Plt Count 269, MPV 11.8, Immature Gran % (Auto) 0.300, Neut % (Auto) 78.3 H, Lymph % (Auto) 9.6 L, [place] % (Auto) 10.8 H, Eos % (Auto) 0.6, Baso % (Auto) 0.4, Absolute Neuts (auto) 11.7 H, Absolute Lymphs (auto) 1.43, Nucleated RBC % 0, Differential Comment SCANNED, Diff Path Review October05/13/19 16:00: Sodium 125 L, Potassium 3.7, Chloride 85 L, Carbon Dioxide 13.0 L, Anion Gap 27 H, BUN 100 H, Creatinine 16.80 H*, Estim Creat Clear Calc 5.02, Est GFR (MDRD) Af Amer 4 L, Est GFR (MDRD) Non-Af 3 L, BUN/Creatinine Ratio 6.0 L, Glucose 167 H, Calcium 8.5, Total Bilirubin 0.60, AST 15, ALT 36, Alkaline Phosphatase 116, Troponin I < 0.015, Total Protein 10.1 H, Albumin 3.6, Globulin 6.5 H, Albumin/Globulin Ratio 0.6 L, Lipase 663 H, TSH 1.03, Thyroxine (T4) 10.0 05/13/19 16:00: Lactic Acid 5.5 H* 05/13/19 16:00: PT Cancelled, INR Cancelled, APTT Cancelled 05/13/19 16:12: Specimen Type JULISSA, Sample Site OTHER, VBG pH 7.11 L*, VBG pO2 33, VBG O2 Sat (Calc) 46 L, VBG O2 Content 12 L, VBG Base Excess -18 L, POC Mix VBG pCO2 Pt Tmp 35.0 L, Blood Gas Notified Whom ED , Blood Gas Notified Time 1605 05/13/19 17:24: PT 15.2 H, INR 1.2, APTT 28.3 05/13/19 19:30: Urine Color Braenna, Urine Clarity Cloudy, Urine pH 5.0, Ur Specific [place] 1.025, Urine Protein 100 H, Urine Glucose (UA) 50 H, Urine Ketones 5 H, Urine Occult Blood 150 H, Urine Nitrite Negative, Urine Bilirubin 3 H, Urine Urobilinogen 1 H, Ur Leukocyte Esterase 100 H, Urine RBC 0-5 SEEN, Urine WBC 5-10 SEEN, Ur Squamous Epith Cells 0-5 SEEN, Urine Bacteria 1+, Urine Mucus 1+ 05/13/19 19:30: Urine Creatinine 364.00 05/13/19 19:30: Ur Random Sodium 24 05/13/19 19:40: Sodium 128 L, Potassium 4.1, Chloride 92 L, Carbon Dioxide 13.0 L, Anion Gap 23 H, BUN 103 H*, Creatinine 15.60 H*, Estim Creat Clear Calc 5.41, Est GFR (MDRD) Af Amer 4 L, Est GFR (MDRD) Non-Af 3 L, BUN/Creatinine Ratio 6.6 L, Glucose 139 H, Calcium 7.3 L 05/13/19 19:40: Troponin I < 0.015 05/13/19 20:22: POC Glucose 146 H 05/13/19 20:25: Lactic Acid 2.4 H 05/13/19 23:15: Sodium 127 L, Potassium 4.7, Chloride 91 L, Carbon Dioxide 14.0 L, Anion Gap 22 H, BUN 106 H*, Creatinine 15.70 H*, Estim Creat Clear Calc 5.37, Est GFR (MDRD) Af Amer 4 L, Est GFR (MDRD) Non-Af 3 L, BUN/Creatinine Ratio 6.8 L, Glucose 192 H, Calcium 7.0 L 05/13/19 23:15: Troponin I < 0.015 05/14/19 01:10: Lactic Acid 2.7 H 05/14/19 03:25: WBC 12.8 H, RBC 5.81, Hgb 17.2 H, Hct 50.1, MCV 86.2, MCH 29.6, MCHC 34.3, RDW Std Deviation 40.9, RDW Coeff of Teetee 13.1, Plt Count 198, MPV 11.7, Immature Gran % (Auto) 0.700, Neut % (Auto) 75.1 H, Lymph % (Auto) 8.6 L, [place]fer[place] % (Auto) 15.0 H, Eos % (Auto) 0.5, Baso % (Auto) 0.1, Absolute Neuts (auto) 9.6 H, Absolute Lymphs (auto) 1.10, Nucleated RBC % 0, Differential Comment SCANNED, Diff Path Review October alf, Platelet Estimate ADEQUATE, Plt Morphology Comment CLUMPED 05/14/19 03:25: Sodium 128 L, Potassium 4.3, Chloride 91 L, Carbon Dioxide 12.0 L, Anion Gap 25 H, BUN 113 H*, Creatinine 16.50 H*, Estim Creat Clear Calc 5.11, Est GFR (MDRD) Af Amer 4 L, Est GFR (MDRD) Non-Af 3 L, BUN/Creatinine Ratio 6.8 L, Glucose 145 H, Calcium 6.9 L, Total Bilirubin 0.40, AST 15, ALT 26, Alkaline Phosphatase 84, Total Protein 7.7, Albumin 2.6 L, Globulin 5.1 H, Albumin/Globulin Ratio 0.5 L Current Medications Acetaminophen (Tylenol) 650 mg PO Q6H PRN PRN PRN Reason: Pain Score 1-3/Temp > 100.7 F Aspirin (Aspirin, Baby) 81 mg PO DAILY@0800 [facility] Calamine/Phenol (Calmoseptine Ointment) 1 applic TOPICAL BID [facility] Last Admin: 05/14/19 10:31 Dose: 1 appful Documented by: Clopidogrel Bisulfate (Plavix) 75 mg PO DAILY [facility] Dextrose (D50w Syringe) 0 gm IV X1 PRN; Protocol PRN Reason: Hypoglycemia Glucagon () 1 mg IM .X1 PRN PRN Reason: Hypoglycemia Sodium Chloride () 1,000 mls @ 150 mls/hr IV .Q6H40M [facility] Last Admin: 05/14/19 08:17 Dose: 150 mls/hr Documented by: Sodium Bicarbonate 150 meq/ (Dextrose) 1,150 mls @ 150 mls/hr IV .Q7H40M [facility] Lactated Ringer's () 1,000 mls @ 999 mls/hr IV .Q1H1M [facility] Stop: 05/14/19 12:00 Last Admin: 05/14/19 11:10 Dose: 999 mls/hr Documented by: Insulin Human Lispro (Humalog Kwikpen (Bkc)) 0 unit SC Q6 [facility]; Protocol Last Admin: 05/14/19 05:53 Dose: Not Given Documented by: Melatonin (Melatonin) 3 mg PO QHS PRN PRN PRN Reason: INSOMNIA Ondansetron HCl (Zofran) 4 mg IV Q8H PRN PRN PRN Reason: NAUSEA/VOMITING Sodium Chloride () 10 - 40 ml IV UD PRN PRN Reason: SALINE FLUSH Last Admin: 05/13/19 19:49 Dose: 10 ml Documented by: Assessment/Plan All Active Problems (Last Reviewed 12/04/18 @ 15:24 by Javon Zapata MD) Acute renal failure (Acute) Acute kidney injury?ATN?white multifactorial with fluid depletion hypotension and contrast-induced nephropathy Metabolic acidosis multifactorial with renal failure and diarrhea and lactic acidosis Hyponatremia likely hypovolemic Chronic kidney disease stage III likely with hypertensive nephrosclerosis Baseline creatinine 1.3?1.5 Hypotension Diarrhea Leukocytosis Polycythemia Coronary artery disease status post CABG Change IV fluids to D5 with 3 amps of bicarb. Continue normal saline. Keep mean arterial blood pressure more than 65. Major risks of dialysis including but not limited to infection heart attack seizures strokes even were discussed with the patient who voiced understanding and states that he wants to talk to his and think about it before proceeding with dialysis. As of now he does not want dialysis he will let us know if he changes his mind. Check ionized calcium replace as needed Strict input and output Quantify proteinuria later Sodium improving continue IV fluids. Check urine sodium osmolality chloride serum osmolality. Avoid nephrotoxins Renal ultrasound reviewed Further work-up and management of JESI as indicated by clinical course Addendum. The patient talked with his and he agrees to proceed with dialysis after he voiced understanding of the risks noted as above. We will proceed with dialysis today and tomorrow and will continue to watch for renal recovery. We will adjust the rate of IV fluids depending on his stool output to avoid hypervolemia considering his cardiac history.
[2019-05-14 12:15] LABS: Bedside Glucose 142 mg/dL (70-110)
--- NOTE | 2019-05-14 12:39 | RAD_ITS ---
STUDY: X-RAY CHEST REASON FOR EXAM: Male, 63 years old. Dialysis catheter placement TECHNIQUE: PA and lateral views of the chest. COMPARISON: Prior day and September 23, 2014. FINDINGS: Postsurgical changes. Median sternotomy. Right IJ catheter tip is in the region of the inferior SVC. Cardiac silhouette unremarkable. Pulmonary vascularity unremarkable. Aorta unremarkable. No focal airspace consolidation. No pleural effusions. Possible nodule overlying the anterior third right rib is likely stable dating back to September 23, 2014. Upper abdomen unremarkable. Osseous structures intact. No pneumothorax. RAD/CXR for Line Placement IMPRESSION: Right IJ catheter tip is in the region of the inferior SVC. No pneumothorax. Electronically Signed: Dustin Salcedo, at 14:01 EST Tel , Service support ,
--- NOTE | 2019-05-14 12:55 | PCM.OPRPT ---
Report of Operation Date of Procedure: 05/14/19 Surgery/Procedure Performed:: Temporary hemodialysis catheter placement Description of Surgical Findings:: Temporary hemodialysis catheter line placement procedure note Indication: Hemodialysis Procedure: A time-out was completed to verify correct patient, indication, medication allergies, procedure, coagulation studies, informed consent signed, and equipment needed. The patient was placed in the supine position for a central line placement to the rt IJ vein. The patients rt neck was prepped using chlorhexidine and a full body sterile drape was applied. 1% lidocaine was used to anesthetize the surrounding skin. A 12fr 16 cm Temporary hemodialysis catheter introduced into the internal jugular vein using the modified Seldinger technique with the assistance of ultrasound. The site was dilated up twice in a stepwise fashion. The catheter was threaded smoothly over the guidewire, the guidewire was removed easily, nonpulsatile blood returned. All ports were aspirated of air and flushed with sterile saline, And then locked with U 1000 heparin 1.3 cc to each port. The catheter was sutured in place and covered with an occlusive dressing impregnated with chlorhexidine. Post-procedure: The patient tolerated the procedure well. Vital signs remained stable. EBL 5 cc. No complications. Chest X Ray ordered to confirm tip placement and the absence of pneumothorax. Code Visit Procedures: 29838 Insert Non-tunnel CV Cath
[2019-05-14 12:57] LABS: Anion Gap 22 (5-15); BUN 103 mg/dL (7-18); BUN/Creat Ratio 6.9 RATIO (10-20); Calcium,Total 6.5 mg/dL (8.5-10.1); Chloride 93 mmol/L (98-107); EST Glomerular Filtration Rate 4 mL/min (>60); Est Glom Filt Rate - Afr Amer 4 mL/min (>60); Estimated Creatinine Clearance 5.62 ml/min; Glucose 115 mg/dL (74-106); Potassium 3.8 mmol/L (3.5-5.1); Sodium Level 128 mmol/L (136-145)
[2019-05-14 13:23] LABS: Urine Sodium 56 mmol/L (Not Establ.)
[2019-05-14 13:26] LABS: Urine Chloride 39 mmol/L (Not Establ.)
[2019-05-14 13:44] LABS: Osmolality, Urine 313 mOsm/KG
[2019-05-14 13:46] LABS: Pathologist Review Reviewed
[2019-05-14 13:47] LABS: Pathologist Review Reviewed
[2019-05-14 13:47] LABS: Osmolality, Serum 300 mOsm/KG (280-301)
[2019-05-14 13:49] LABS: Albumin, Serum 2.4 g/dL (3.2-5.0); Magnesium 1.9 mg/dL (1.6-2.6)
[2019-05-14] MEDS: Heparin 10,000 UNITS/10 ML Vial 2600 UNITS IV (13:59)
[2019-05-14 14:18] LABS: PTHIN 518.1 pg/mL (18.4-80.1)
[2019-05-14 15:06] LABS: Hepatitis B Surface Antibody Non-Reactive; Hepatitis B Surface Antigen Non-Reactive (Nonreactive)
--- NOTE | 2019-05-14 17:07 | DIALYSIS ---
Hemodialysis x 2 hours completed. Pt tolerated his first tx well. No fluid removed per MD order. Heparin 1000units/ml to close HD CVC ports to fill volume. Next tx scheduled for 05/15/19. Report given to JAY Moody. Pt stable
[2019-05-14 18:50] LABS: Bedside Glucose 143 mg/dL (70-110)
[2019-05-14] MEDS: Heparin 10,000 UNITS/10 ML Vial IV (19:00)
[2019-05-14 23:30] LABS: Bedside Glucose 121 mg/dL (70-110)
[2019-05-15] VITALS (31 sets, daily range): BP systolic 80–117; BP diastolic 48–76; PULSE 88–116; RESP 15–26; TEMP 37.2–38.1; O2SAT 91–98
[2019-05-15 04:17] LABS: Absolute Neutrophil Count 5.7 X10^3/uL (2.0-7.7); Basophil# 0.06 X10^3/uL; Basophil% 0.6 % (0-1); Eosinophil# 0.02 X10^3/uL; Eosinophils% 0.2 % (0-5); Hematocrit 42.6 % (40-54); Lymphocyte % 21.5 % (19-41); Mean Corp Hgb Conc 35.2 g/dL (32-36); Mean Corpuscular Hgb 29.3 pg (27.0-32.0); Mean Corpuscular Volume 83.2 fL (80-94); Mean Platelet Vol. 11.5 fl (6.2-12.0); Monocyte# 1.75 X10^3/uL; Monocyte% 17.9 % (0-10); NRBC Flagged by Analyzer 0 % (0-5); Neutrophil # 5.74 X10^3/uL (2.7-7.7); POSITIVE DIFFERENTIAL YES; Platelet Count 181 K/mm3 (150-450); RBC Distribution Width CV 12.7 % (11.6-14.6); RBC Distribution Width SD 38.7 fl (35.1-43.9); Red Blood Count 5.12 M/mm3 (4.6-6.2); White Blood Count 9.8 K/mm3 (4.4-11.0)
[2019-05-15 04:28] LABS: Differential Indicated SCAN CRITERIA MET
[2019-05-15 04:41] LABS: ALB/GLOB Ratio 0.5 RATIO (0.9-2.4); AST(SGOT) 17 U/L (15-37); Alanine Aminotransfer ALT/SGPT 21 U/L (16-61); Albumin, Serum 2.4 g/dL (3.2-5.0); Alkaline Phosphatase 73 U/L (45-117); Anion Gap 16 (5-15); BUN 68 mg/dL (7-18); BUN/Creat Ratio 8.9 RATIO (10-20); Calcium,Total 7.6 mg/dL (8.5-10.1); Chloride 93 mmol/L (98-107); Creatinine, Serum 7.67 mg/dL (0.70-1.30); EST Glomerular Filtration Rate 8 mL/min (>60); Est Glom Filt Rate - Afr Amer 9 mL/min (>60); Globulin 4.5 g/dL (2.2-4.2); Glucose 113 mg/dL (74-106); Magnesium 1.9 mg/dL (1.6-2.6); Potassium 3.1 mmol/L (3.5-5.1); Protein, Total 6.9 g/dL (6.4-8.2); Sodium Level 132 mmol/L (136-145)
--- NOTE | 2019-05-15 07:07 | PCM.PN.INT ---
Subjective: Patient did well overnight. Patient did have several episodes of hypotension yesterday and received significant amounts of fluid.. Patient was able to tolerate hemodialysis with improvement in blood pressure following therapy. Patient states his diarrhea is improving. Nursing is reporting a change from a red color to a green color. Patient does state that he was able to rest overnight which is the first time in about a week. General: Alert, Oriented x3, Cooperative, No apparent distress, Well developed, Well nourished, - - No conversational dyspnea. HEENT: Atraumatic, PERRLA, EOMI, Normocephalic, - - No scleral icterus or injection noted. Oral: Moist Mucosa, No Gingival or Mucosal Lesions/ Ulcerations Neck: Supple, No JVD, No Nodes, Trachea Midline Lungs: No rhonchi, No wheeze, Diminished, Rales - Bilateral bases, - - Symmetric expansion. No dullness to percussion. Cardiovascular: Normal S1, Normal S2, No murmurs, No rub noted, No Gallop, Tachycardic Abdomen: Bowel Sounds Present, Soft, Non Tender, Non-Distended, Obese Extremities: No clubbing, No cyanosis, Edema Skin: No rashes, No breakdown Musculoskeletal: No Tenderness to Palpation of Joints or Extremities Lymphatic: No Cervical, Supraclavicular, or Inguinal Adenopathy Neurological: Cranial nerves II-XII grossly intact, Neuro grossly intact, Motor Exam 5/5 strength throughout Psych/Mental Status: Alert and oriented to time, place, person, mood and affect Vital Signs Temp Pulse Resp BP Pulse Ox 37.5 C H 97 16 84/48 L 91 05/15/19 04:00 05/15/19 06:00 05/15/19 06:00 05/15/19 06:00 05/15/19 06:00 Oxygen Flow Rate (L/min) 2 Oxygen Delivery Method Room Air Weight: 106.9 kg Body Mass Index (BMI) 31.1 Intake and Output for Last 24 Hours 05/13/19 05/14/19 05/15/19 23:59 23:59 23:59 Intake Total 1999 9127.77 / 9127.77 934.37 / 934.37 Output Total 3510 / 3510 400 / 400 Balance 1999 5617.77 / 5617.77 534.37 / 534.37 Labs (Last 48 Hours) 05/13/19 05/13/19 05/13/19 16:00 16:00 16:00 WBC 14.9 H RBC 6.40 H Hgb 19.1 H* Hct 55.8 H MCV 87.2 MCH 29.8 MCHC 34.2 RDW Std Deviation 42.5 RDW Coeff of [place] 13.4 Plt Count 269 MPV 11.8 Immature Gran % (Auto) 0.300 Neut % (Auto) 78.3 H Lymph % (Auto) 9.6 L Dunn % (Auto) 10.8 H Eos % (Auto) 0.6 Baso % (Auto) 0.4 Absolute Neuts (auto) 11.7 H Absolute Lymphs (auto) 1.43 Nucleated RBC % 0 Differential Comment SCANNED Diff Path Review Reviewed Platelet Estimate Plt Morphology Comment PT INR APTT Specimen Type Sample Site VBG pH VBG pO2 VBG O2 Sat (Calc) VBG O2 Content VBG Base Excess POC Mix VBG pCO2 Pt Tmp Blood Gas Notified Whom Blood Gas Notified Time Sodium 125 L Potassium 3.7 Chloride 85 L Carbon Dioxide 13.0 L Anion Gap 27 H BUN 100 H Creatinine 16.80 H* Estim Creat Clear Calc 5.02 Est GFR (MDRD) Af Amer 4 L Est GFR (MDRD) Non-Af 3 L BUN/Creatinine Ratio 6.0 L Glucose 167 H Serum Osmolality Lactic Acid 5.5 H* Calcium 8.5 Ionized Calcium Magnesium Total Bilirubin 0.60 AST 15 ALT 36 Alkaline Phosphatase 116 Troponin I < 0.015 Total Protein 10.1 H Albumin 3.6 Globulin 6.5 H Albumin/Globulin Ratio 0.6 L Lipase 663 H Vit D 1,25-Dihydroxy TSH 1.03 Thyroxine (T4) 10.0 PTH Intact Urine Color Urine Clarity Urine pH Ur Specific [place] Urine Protein Urine Glucose (UA) Urine Ketones Urine Occult Blood Urine Nitrite Urine Bilirubin Urine Urobilinogen Ur Leukocyte Esterase Urine RBC Urine WBC Ur Squamous Epith Cells Urine Bacteria Urine Mucus Urine Osmolality Ur Random Sodium Urine Creatinine Urine Chloride Hep Bs Antigen Hep Bs Antibody POC Glucose 05/13/19 05/13/19 05/13/19 16:00 16:12 17:24 WBC RBC Hgb Hct MCV MCH MCHC RDW Std Deviation RDW Coeff of [place] Plt Count MPV Immature Gran % (Auto) Neut % (Auto) Lymph % (Auto) Dunn % (Auto) Eos % (Auto) Baso % (Auto) Absolute Neuts (auto) Absolute Lymphs (auto) Nucleated RBC % Differential Comment Diff Path Review Platelet Estimate Plt Morphology Comment PT Cancelled 15.2 H INR Cancelled 1.2 APTT Cancelled 28.3 Specimen Type JULISSA Sample Site OTHER VBG pH 7.11 L* VBG pO2 33 VBG O2 Sat (Calc) 46 L VBG O2 Content 12 L VBG Base Excess -18 L POC Mix VBG pCO2 Pt Tmp 35.0 L Blood Gas Notified Whom ED MD Blood Gas Notified Time 1605 Sodium Potassium Chloride Carbon Dioxide Anion Gap BUN Creatinine Estim Creat Clear Calc Est GFR (MDRD) Af Amer Est GFR (MDRD) Non-Af BUN/Creatinine Ratio Glucose Serum Osmolality Lactic Acid Calcium Ionized Calcium Magnesium Total Bilirubin AST ALT Alkaline Phosphatase Troponin I Total Protein Albumin Globulin Albumin/Globulin Ratio Lipase Vit D 1,25-Dihydroxy TSH Thyroxine (T4) PTH Intact Urine Color Urine Clarity Urine pH Ur Specific [place] Urine Protein Urine Glucose (UA) Urine Ketones Urine Occult Blood Urine Nitrite Urine Bilirubin Urine Urobilinogen Ur Leukocyte Esterase Urine RBC Urine WBC Ur Squamous Epith Cells Urine Bacteria Urine Mucus Urine Osmolality Ur Random Sodium Urine Creatinine Urine Chloride Hep Bs Antigen Hep Bs Antibody POC Glucose 05/13/19 05/13/19 05/13/19 19:30 19:30 19:30 WBC RBC Hgb Hct MCV MCH MCHC RDW Std Deviation RDW Coeff of [place] Plt Count MPV Immature Gran % (Auto) Neut % (Auto) Lymph % (Auto) Dunn % (Auto) Eos % (Auto) Baso % (Auto) Absolute Neuts (auto) Absolute Lymphs (auto) Nucleated RBC % Differential Comment Diff Path Review Platelet Estimate Plt Morphology Comment PT INR APTT Specimen Type Sample Site VBG pH VBG pO2 VBG O2 Sat (Calc) VBG O2 Content VBG Base Excess POC Mix VBG pCO2 Pt Tmp Blood Gas Notified Whom Blood Gas Notified Time Sodium Potassium Chloride Carbon Dioxide Anion Gap BUN Creatinine Estim Creat Clear Calc Est GFR (MDRD) Af Amer Est GFR (MDRD) Non-Af BUN/Creatinine Ratio Glucose Serum Osmolality Lactic Acid Calcium Ionized Calcium Magnesium Total Bilirubin AST ALT Alkaline Phosphatase Troponin I Total Protein Albumin Globulin Albumin/Globulin Ratio Lipase Vit D 1,25-Dihydroxy TSH Thyroxine (T4) PTH Intact Urine Color [place] Urine Clarity Cloudy Urine pH 5.0 Ur Specific [place] 1.025 Urine Protein 100 H Urine Glucose (UA) 50 H Urine Ketones 5 H Urine Occult Blood 150 H Urine Nitrite Negative Urine Bilirubin 3 H Urine Urobilinogen 1 H Ur Leukocyte Esterase 100 H Urine RBC 0-5 SEEN Urine WBC 5-10 SEEN Ur Squamous Epith Cells 0-5 SEEN Urine Bacteria 1+ Urine Mucus 1+ Urine Osmolality Ur Random Sodium 24 Urine Creatinine 364.00 Urine Chloride Hep Bs Antigen Hep Bs Antibody POC Glucose 05/13/19 05/13/19 05/13/19 19:40 19:40 20:22 WBC RBC Hgb Hct MCV MCH MCHC RDW Std Deviation RDW Coeff of [place] Plt Count MPV Immature Gran % (Auto) Neut % (Auto) Lymph % (Auto) Dunn % (Auto) Eos % (Auto) Baso % (Auto) Absolute Neuts (auto) Absolute Lymphs (auto) Nucleated RBC % Differential Comment Diff Path Review Platelet Estimate Plt Morphology Comment PT INR APTT Specimen Type Sample Site VBG pH VBG pO2 VBG O2 Sat (Calc) VBG O2 Content VBG Base Excess POC Mix VBG pCO2 Pt Tmp Blood Gas Notified Whom Blood Gas Notified Time Sodium 128 L Potassium 4.1 Chloride 92 L Carbon Dioxide 13.0 L Anion Gap 23 H BUN 103 H* Creatinine 15.60 H* Estim Creat Clear Calc 5.41 Est GFR (MDRD) Af Amer 4 L Est GFR (MDRD) Non-Af 3 L BUN/Creatinine Ratio 6.6 L Glucose 139 H Serum Osmolality Lactic Acid Calcium 7.3 L Ionized Calcium Magnesium Total Bilirubin AST ALT Alkaline Phosphatase Troponin I < 0.015 Total Protein Albumin Globulin Albumin/Globulin Ratio Lipase Vit D 1,25-Dihydroxy TSH Thyroxine (T4) PTH Intact Urine Color Urine Clarity Urine pH Ur Specific [place] Urine Protein Urine Glucose (UA) Urine Ketones Urine Occult Blood Urine Nitrite Urine Bilirubin Urine Urobilinogen Ur Leukocyte Esterase Urine RBC Urine WBC Ur Squamous Epith Cells Urine Bacteria Urine Mucus Urine Osmolality Ur Random Sodium Urine Creatinine Urine Chloride Hep Bs Antigen Hep Bs Antibody POC Glucose 146 H 05/13/19 05/13/19 05/13/19 20:25 23:15 23:15 WBC RBC Hgb Hct MCV MCH MCHC RDW Std Deviation RDW Coeff of [place] Plt Count MPV Immature Gran % (Auto) Neut % (Auto) Lymph % (Auto) Dunn % (Auto) Eos % (Auto) Baso % (Auto) Absolute Neuts (auto) Absolute Lymphs (auto) Nucleated RBC % Differential Comment Diff Path Review Platelet Estimate Plt Morphology Comment PT INR APTT Specimen Type Sample Site VBG pH VBG pO2 VBG O2 Sat (Calc) VBG O2 Content VBG Base Excess POC Mix VBG pCO2 Pt Tmp Blood Gas Notified Whom Blood Gas Notified Time Sodium 127 L Potassium 4.7 Chloride 91 L Carbon Dioxide 14.0 L Anion Gap 22 H BUN 106 H* Creatinine 15.70 H* Estim Creat Clear Calc 5.37 Est GFR (MDRD) Af Amer 4 L Est GFR (MDRD) Non-Af 3 L BUN/Creatinine Ratio 6.8 L Glucose 192 H Serum Osmolality Lactic Acid 2.4 H Calcium 7.0 L Ionized Calcium Magnesium Total Bilirubin AST ALT Alkaline Phosphatase Troponin I < 0.015 Total Protein Albumin Globulin Albumin/Globulin Ratio Lipase Vit D 1,25-Dihydroxy TSH Thyroxine (T4) PTH Intact Urine Color Urine Clarity Urine pH Ur Specific [place] Urine Protein Urine Glucose (UA) Urine Ketones Urine Occult Blood Urine Nitrite Urine Bilirubin Urine Urobilinogen Ur Leukocyte Esterase Urine RBC Urine WBC Ur Squamous Epith Cells Urine Bacteria Urine Mucus Urine Osmolality Ur Random Sodium Urine Creatinine Urine Chloride Hep Bs Antigen Hep Bs Antibody POC Glucose 05/14/19 05/14/19 05/14/19 01:10 03:25 03:25 WBC 12.8 H RBC 5.81 Hgb 17.2 H Hct 50.1 MCV 86.2 MCH 29.6 MCHC 34.3 RDW Std Deviation 40.9 RDW Coeff of [place] 13.1 Plt Count 198 MPV 11.7 Immature Gran % (Auto) 0.700 Neut % (Auto) 75.1 H Lymph % (Auto) 8.6 L Dunn % (Auto) 15.0 H Eos % (Auto) 0.5 Baso % (Auto) 0.1 Absolute Neuts (auto) 9.6 H Absolute Lymphs (auto) 1.10 Nucleated RBC % 0 Differential Comment SCANNED Diff Path Review Reviewed Platelet Estimate ADEQUATE Plt Morphology Comment CLUMPED PT INR APTT Specimen Type Sample Site VBG pH VBG pO2 VBG O2 Sat (Calc) VBG O2 Content VBG Base Excess POC Mix VBG pCO2 Pt Tmp Blood Gas Notified Whom Blood Gas Notified Time Sodium 128 L Potassium 4.3 Chloride 91 L Carbon Dioxide 12.0 L Anion Gap 25 H BUN 113 H* Creatinine 16.50 H* Estim Creat Clear Calc 5.11 Est GFR (MDRD) Af Amer 4 L Est GFR (MDRD) Non-Af 3 L BUN/Creatinine Ratio 6.8 L Glucose 145 H Serum Osmolality Lactic Acid 2.7 H Calcium 6.9 L Ionized Calcium Magnesium Total Bilirubin 0.40 AST 15 ALT 26 Alkaline Phosphatase 84 Troponin I Total Protein 7.7 Albumin 2.6 L Globulin 5.1 H Albumin/Globulin Ratio 0.5 L Lipase Vit D 1,25-Dihydroxy TSH Thyroxine (T4) PTH Intact Urine Color Urine Clarity Urine pH Ur Specific [place] Urine Protein Urine Glucose (UA) Urine Ketones Urine Occult Blood Urine Nitrite Urine Bilirubin Urine Urobilinogen Ur Leukocyte Esterase Urine RBC Urine WBC Ur Squamous Epith Cells Urine Bacteria Urine Mucus Urine Osmolality Ur Random Sodium Urine Creatinine Urine Chloride Hep Bs Antigen Hep Bs Antibody POC Glucose 05/14/19 05/14/19 05/14/19 03:25 11:12 11:12 WBC RBC Hgb Hct MCV MCH MCHC RDW Std Deviation RDW Coeff of [place] Plt Count MPV Immature Gran % (Auto) Neut % (Auto) Lymph % (Auto) [place] % (Auto) Eos % (Auto) Baso % (Auto) Absolute Neuts (auto) Absolute Lymphs (auto) Nucleated RBC % Differential Comment Diff Path Review Platelet Estimate Plt Morphology Comment PT INR APTT Specimen Type Sample Site VBG pH VBG pO2 VBG O2 Sat (Calc) VBG O2 Content VBG Base Excess POC Mix VBG pCO2 Pt Tmp Blood Gas Notified Whom Blood Gas Notified Time Sodium Potassium Chloride Carbon Dioxide Anion Gap BUN Creatinine Estim Creat Clear Calc Est GFR (MDRD) Af Amer Est GFR (MDRD) Non-Af BUN/Creatinine Ratio Glucose Serum Osmolality Lactic Acid Calcium Ionized Calcium Magnesium Total Bilirubin AST ALT Alkaline Phosphatase Troponin I Total Protein Albumin Globulin Albumin/Globulin Ratio Lipase Vit D 1,25-Dihydroxy TSH Thyroxine (T4) PTH Intact 518.1 H Urine Color Urine Clarity Urine pH Ur Specific [place] Urine Protein Urine Glucose (UA) Urine Ketones Urine Occult Blood Urine Nitrite Urine Bilirubin Urine Urobilinogen Ur Leukocyte Esterase Urine RBC Urine WBC Ur Squamous Epith Cells Urine Bacteria Urine Mucus Urine Osmolality 313 Ur Random Sodium Urine Creatinine Urine Chloride 39 Hep Bs Antigen Hep Bs Antibody POC Glucose 05/14/19 05/14/19 05/14/19 11:12 11:45 11:45 WBC RBC Hgb Hct MCV MCH MCHC RDW Std Deviation RDW Coeff of [place] Plt Count MPV Immature Gran % (Auto) Neut % (Auto) Lymph % (Auto) [place] % (Auto) Eos % (Auto) Baso % (Auto) Absolute Neuts (auto) Absolute Lymphs (auto) Nucleated RBC % Differential Comment Diff Path Review Platelet Estimate Plt Morphology Comment PT INR APTT Specimen Type Sample Site VBG pH VBG pO2 VBG O2 Sat (Calc) VBG O2 Content VBG Base Excess POC Mix VBG pCO2 Pt Tmp Blood Gas Notified Whom Blood Gas Notified Time Sodium 128 L Potassium 3.8 Chloride 93 L Carbon Dioxide 13.0 L Anion Gap 22 H BUN 103 H* Creatinine 15.00 H* Estim Creat Clear Calc 5.62 Est GFR (MDRD) Af Amer 4 L Est GFR (MDRD) Non-Af 4 L BUN/Creatinine Ratio 6.9 L Glucose 115 H Serum Osmolality Lactic Acid Calcium 6.5 L* Ionized Calcium Magnesium 1.9 Total Bilirubin AST ALT Alkaline Phosphatase Troponin I Total Protein Albumin 2.4 L Globulin Albumin/Globulin Ratio Lipase Vit D 1,25-Dihydroxy TSH Thyroxine (T4) PTH Intact Urine Color Urine Clarity Urine pH Ur Specific [place] Urine Protein Urine Glucose (UA) Urine Ketones Urine Occult Blood Urine Nitrite Urine Bilirubin Urine Urobilinogen Ur Leukocyte Esterase Urine RBC Urine WBC Ur Squamous Epith Cells Urine Bacteria Urine Mucus Urine Osmolality Ur Random Sodium 56 Urine Creatinine Urine Chloride Hep Bs Antigen Hep Bs Antibody POC Glucose 05/14/19 05/14/19 05/14/19 12:02 12:40 12:40 WBC RBC Hgb Hct MCV MCH MCHC RDW Std Deviation RDW Coeff of [place] Plt Count MPV Immature Gran % (Auto) Neut % (Auto) Lymph % (Auto) [place] % (Auto) Eos % (Auto) Baso % (Auto) Absolute Neuts (auto) Absolute Lymphs (auto) Nucleated RBC % Differential Comment Diff Path Review Platelet Estimate Plt Morphology Comment PT INR APTT Specimen Type Sample Site VBG pH VBG pO2 VBG O2 Sat (Calc) VBG O2 Content VBG Base Excess POC Mix VBG pCO2 Pt Tmp Blood Gas Notified Whom Blood Gas Notified Time Sodium Potassium Chloride Carbon Dioxide Anion Gap BUN Creatinine Estim Creat Clear Calc Est GFR (MDRD) Af Amer Est GFR (MDRD) Non-Af BUN/Creatinine Ratio Glucose Serum Osmolality 300 Lactic Acid Calcium Ionized Calcium Pending Magnesium Total Bilirubin AST ALT Alkaline Phosphatase Troponin I Total Protein Albumin Globulin Albumin/Globulin Ratio Lipase Vit D 1,25-Dihydroxy TSH Thyroxine (T4) PTH Intact Urine Color Urine Clarity Urine pH Ur Specific [place] Urine Protein Urine Glucose (UA) Urine Ketones Urine Occult Blood Urine Nitrite Urine Bilirubin Urine Urobilinogen Ur Leukocyte Esterase Urine RBC Urine WBC Ur Squamous Epith Cells Urine Bacteria Urine Mucus Urine Osmolality Ur Random Sodium Urine Creatinine Urine Chloride Hep Bs Antigen Hep Bs Antibody POC Glucose 142 H 05/14/19 05/14/19 05/14/19 12:40 12:50 14:35 WBC RBC Hgb Hct MCV MCH MCHC RDW Std Deviation RDW Coeff of [place] Plt Count MPV Immature Gran % (Auto) Neut % (Auto) Lymph % (Auto) [place] % (Auto) Eos % (Auto) Baso % (Auto) Absolute Neuts (auto) Absolute Lymphs (auto) Nucleated RBC % Differential Comment Diff Path Review Platelet Estimate Plt Morphology Comment PT INR APTT Specimen Type Sample Site VBG pH VBG pO2 VBG O2 Sat (Calc) VBG O2 Content VBG Base Excess POC Mix VBG pCO2 Pt Tmp Blood Gas Notified Whom Blood Gas Notified Time Sodium Potassium Chloride Carbon Dioxide Anion Gap BUN Creatinine Estim Creat Clear Calc Est GFR (MDRD) Af Amer Est GFR (MDRD) Non-Af BUN/Creatinine Ratio Glucose Serum Osmolality Lactic Acid Calcium Ionized Calcium Magnesium Total Bilirubin AST ALT Alkaline Phosphatase Troponin I Total Protein Albumin Globulin Albumin/Globulin Ratio Lipase Vit D 1,25-Dihydroxy Pending TSH Thyroxine (T4) PTH Intact Urine Color Urine Clarity Urine pH Ur Specific [place] Urine Protein Urine Glucose (UA) Urine Ketones Urine Occult Blood Urine Nitrite Urine Bilirubin Urine Urobilinogen Ur Leukocyte Esterase Urine RBC Urine WBC Ur Squamous Epith Cells Urine Bacteria Urine Mucus Urine Osmolality Ur Random Sodium Urine Creatinine 154.00 Urine Chloride Hep Bs Antigen Non-Reactive Hep Bs Antibody Non-Reactive POC Glucose 05/14/19 05/14/19 05/15/19 17:46 23:23 04:00 WBC 9.8 RBC 5.12 Hgb 15.0 Hct 42.6 MCV 83.2 MCH 29.3 MCHC 35.2 RDW Std Deviation 38.7 RDW Coeff of [place] 12.7 Plt Count 181 MPV 11.5 Immature Gran % (Auto) 0.800 Neut % (Auto) 59.0 Lymph % (Auto) 21.5 Dunn % (Auto) 17.9 H Eos % (Auto) 0.2 Baso % (Auto) 0.6 Absolute Neuts (auto) 5.7 Absolute Lymphs (auto) 2.10 Nucleated RBC % 0 Differential Comment Diff Path Review Platelet Estimate Plt Morphology Comment PT INR APTT Specimen Type Sample Site VBG pH VBG pO2 VBG O2 Sat (Calc) VBG O2 Content VBG Base Excess POC Mix VBG pCO2 Pt Tmp Blood Gas Notified Whom Blood Gas Notified Time Sodium Potassium Chloride Carbon Dioxide Anion Gap BUN Creatinine Estim Creat Clear Calc Est GFR (MDRD) Af Amer Est GFR (MDRD) Non-Af BUN/Creatinine Ratio Glucose Serum Osmolality Lactic Acid Calcium Ionized Calcium Magnesium Total Bilirubin AST ALT Alkaline Phosphatase Troponin I Total Protein Albumin Globulin Albumin/Globulin Ratio Lipase Vit D 1,25-Dihydroxy TSH Thyroxine (T4) PTH Intact Urine Color Urine Clarity Urine pH Ur Specific [place] Urine Protein Urine Glucose (UA) Urine Ketones Urine Occult Blood Urine Nitrite Urine Bilirubin Urine Urobilinogen Ur Leukocyte Esterase Urine RBC Urine WBC Ur Squamous Epith Cells Urine Bacteria Urine Mucus Urine Osmolality Ur Random Sodium Urine Creatinine Urine Chloride Hep Bs Antigen Hep Bs Antibody POC Glucose 143 H 121 H 05/15/19 04:00 WBC RBC Hgb Hct MCV MCH MCHC RDW Std Deviation RDW Coeff of [place] Plt Count MPV Immature Gran % (Auto) Neut % (Auto) Lymph % (Auto) [place] % (Auto) Eos % (Auto) Baso % (Auto) Absolute Neuts (auto) Absolute Lymphs (auto) Nucleated RBC % Differential Comment Diff Path Review Platelet Estimate Plt Morphology Comment PT INR APTT Specimen Type Sample Site VBG pH VBG pO2 VBG O2 Sat (Calc) VBG O2 Content VBG Base Excess POC Mix VBG pCO2 Pt Tmp Blood Gas Notified Whom Blood Gas Notified Time Sodium 132 L Potassium 3.1 L Chloride 93 L Carbon Dioxide 23.0 Anion Gap 16 H BUN 68 H Creatinine 7.67 H* Estim Creat Clear Calc 11.00 Est GFR (MDRD) Af Amer 9 L Est GFR (MDRD) Non-Af 8 L BUN/Creatinine Ratio 8.9 L Glucose 113 H Serum Osmolality Lactic Acid Calcium 7.6 L Ionized Calcium Magnesium 1.9 Total Bilirubin 0.60 AST 17 ALT 21 Alkaline Phosphatase 73 Troponin I Total Protein 6.9 Albumin 2.4 L Globulin 4.5 H Albumin/Globulin Ratio 0.5 L Lipase Vit D 1,25-Dihydroxy TSH Thyroxine (T4) PTH Intact Urine Color Urine Clarity Urine pH Ur Specific [place] Urine Protein Urine Glucose (UA) Urine Ketones Urine Occult Blood Urine Nitrite Urine Bilirubin Urine Urobilinogen Ur Leukocyte Esterase Urine RBC Urine WBC Ur Squamous Epith Cells Urine Bacteria Urine Mucus Urine Osmolality Ur Random Sodium Urine Creatinine Urine Chloride Hep Bs Antigen Hep Bs Antibody POC Glucose Microbiology 05/13/19 19:25 Stool Enteric Bacteriology - Final Campylobacter species 05/14/19 08:00 Stool Stool Occult Blood ([facility]) - Final Occult Blood Positive 05/13/19 19:25 Stool C. difficile DNA Amplification - Final Medical Necessity - Tobacco Use Smoking Status: Former smoker Tobacco Use: Cigarettes Assessment/Plan All Active Problems (Last Reviewed 12/04/18 @ 15:24 by Javon Zapata MD) Acute renal failure (Acute) RECOMMENDATIONS: 1. Attempt to limit hydration if possible, discontinue bicarbonate drip 2. Await results of hemodialysis 3. Wean oxygen as tolerated 4. Monitor rate control, may consider cardiology consult if A. fib with RVR persists 5. Supportive measures for diarrhea 6. Await nephrology recommendations IMPRESSIONS: 1. Acute renal failure Exact etiology is unclear at this time. Patient does have some suggestion of nephritic syndrome on UA. Patient also has significant diarrhea, so prerenal etiology would be a possibility. Clinical suspicion for the development of ATN given high creatinine and BUN. This likely has been going on for longer than 6 days and the diarrhea may be a result of the renal failure. Nephrology is following. Patient did have significant improvement following hemodialysis. We will continue to monitor closely. Patient does have a history of CHF, so fluid resuscitation may need to be minimalized moving forward. 2. Acute infectious diarrhea secondary to Campylobacter Patient is describing possible exposure to raw chicken in the last week. No signs or symptoms of bacteremia at this time. Will attempt to hold off on antibiotics for now. 3. Anion gap and non-anion gap metabolic acidosis Improved. Patient with significant acidosis on presentation. Patient has been receiving bicarbonate, but this will be discontinued secondary to fluid concerns. Acidosis much improved following hemodialysis 4. Alcohol dependence Patient does admit to 3-4 vodka drinks per night. Patient is on the CIWA protocol, but does not report a history of withdrawal symptoms in the past. We will continue to monitor. Likely discontinue CIWA protocol if no issues in the next 24 hours. Liver function appears to be intact. 5. Chronic systolic congestive heart failure status post CABG and stents/new onset A. fib Okay to continue with aspirin and Plavix for now. Would hold other medications during the acute phase. Patient may require volume removal with hemodialysis. Fluids will be minimalized 6. Obesity/history of tobacco use/GERD/hyperlipidemia/hypertension Complicates care, management, recovery and prognosis. Patient would likely benefit from outpatient pulmonary function test for quantification and clarification of lung function. Antihypertensives have been held secondary to hypotension. Reasonable to hold statin at this time. Patient is on a PPI. Code Visit Inpatient E&M: 16729 Subs Hosp L3
--- NOTE | 2019-05-15 07:25 | PCM.PN.HOSP ---
Patient Problems: Active and Suspected Problems (Last Reviewed 12/04/18 @ 15:24 by Javon Zapata MD) Infectious diarrhea in adult patient (Suspected) Acute renal failure (Acute) Subjective: Patient was seen and examined. He feels better. His stools have started to be less. He denied any fever or chills or SOB. Objective: Physical exam: General: Alert, Oriented x3, Cooperative, No apparent distress HEENT: Atraumatic, PERRLA, EOMI, Normocephalic Neck: Supple, No JVD, Negative Carotid Bruits Lungs: Clear to auscultation, Normal air movement Cardiovascular: Regular rate, Regular Rhythm, Normal S1, Normal S2 Abdomen: Bowel Sounds Present, Soft, Non-Distended, Tender - epigastric and RUQ tenderness with guarding but no RBT Extremities: No edema Skin: No rashes Musculoskeletal: No Tenderness to Palpation of Joints or Extremities Lymphatic: No Cervical, Supraclavicular, or Inguinal Adenopathy Neurological: Cranial nerves II-XII grossly intact, Neuro grossly intact Psych/Mental Status: Normal Affect, Appropriate Vitals/I&O's: Vital Signs Temp Pulse Resp BP Pulse Ox 99.5 F H 97 16 84/48 L 91 05/15/19 04:00 05/15/19 06:00 05/15/19 06:00 05/15/19 06:00 05/15/19 06:00 Oxygen Flow Rate (L/min) 2 Oxygen Delivery Method Room Air Weight: 106.9 kg Body Mass Index (BMI) 31.1 Intake and Output for Last 24 Hours 05/13/19 05/14/19 05/15/19 23:59 23:59 23:59 Intake Total 1999 9127.77 / 9127.77 934.37 / 934.37 Output Total 3510 / 3510 400 / 400 Balance 1999 5617.77 / 5617.77 534.37 / 534.37 Microbiology Past 72 Hours 05/13/19 19:25 Stool Enteric Bacteriology - Final Campylobacter species 05/14/19 08:00 Stool Stool Occult Blood (ZIYAD) - Final Occult Blood Positive 05/13/19 19:25 Stool C. difficile DNA Amplification - Final Laboratory Results 05/13/19 16:00: Diff Path Review Reviewed 05/13/19 19:30: Urine Creatinine 364.00 05/13/19 19:30: Ur Random Sodium 24 05/14/19 03:25: Diff Path Review Reviewed 05/14/19 03:25: PTH Intact 518.1 H 05/14/19 11:12: Urine Osmolality 313 05/14/19 11:12: Urine Chloride 39 05/14/19 11:12: Ur Random Sodium 56 05/14/19 11:45: Sodium 128 L, Potassium 3.8, Chloride 93 L, Carbon Dioxide 13.0 L, Anion Gap 22 H, BUN 103 H*, Creatinine 15.00 H*, Estim Creat Clear Calc 5.62, Est GFR (MDRD) Af Amer 4 L, Est GFR (MDRD) Non-Af 4 L, BUN/Creatinine Ratio 6.9 L, Glucose 115 H, Calcium 6.5 L* 05/14/19 11:45: Magnesium 1.9, Albumin 2.4 L 05/14/19 12:02: POC Glucose 142 H 05/14/19 12:40: Serum Osmolality 300 05/14/19 12:40: Ionized Calcium Pending 05/14/19 12:40: Hep Bs Antigen Non-Reactive, Hep Bs Antibody Non-Reactive 05/14/19 12:50: Urine Creatinine 154.00 05/14/19 14:35: Vit D 1,25-Dihydroxy Pending 05/14/19 17:46: POC Glucose 143 H 05/14/19 23:23: POC Glucose 121 H 05/15/19 04:00: WBC 9.8, RBC 5.12, Hgb 15.0, Hct 42.6, MCV 83.2, MCH 29.3, MCHC 35.2, RDW Std Deviation 38.7, RDW Coeff of [place] 12.7, Plt Count 181, MPV 11.5, Immature Gran % (Auto) 0.800, Neut % (Auto) 59.0, Lymph % (Auto) 21.5, [place] % (Auto) 17.9 H, Eos % (Auto) 0.2, Baso % (Auto) 0.6, Absolute Neuts (auto) 5.7, Absolute Lymphs (auto) 2.10, Nucleated RBC % 0 05/15/19 04:00: Sodium 132 L, Potassium 3.1 L, Chloride 93 L, Carbon Dioxide 23.0, Anion Gap 16 H, BUN 68 H, Creatinine 7.67 H*, Estim Creat Clear Calc 11.00, Est GFR (MDRD) Af Amer 9 L, Est GFR (MDRD) Non-Af 8 L, BUN/Creatinine Ratio 8.9 L, Glucose 113 H, Calcium 7.6 L, Magnesium 1.9, Total Bilirubin 0.60, AST 17, ALT 21, Alkaline Phosphatase 73, Total Protein 6.9, Albumin 2.4 L, Globulin 4.5 H, Albumin/Globulin Ratio 0.5 L Current Medications Acetaminophen (Tylenol) 650 mg PO Q6H PRN PRN PRN Reason: Pain Score 1-3/Temp > 100.7 F Aspirin (Aspirin, Baby) 81 mg PO DAILY@0800 [facility] Calamine/Phenol (Calmoseptine Ointment) 1 applic TOPICAL BID [facility] Last Admin: 05/14/19 23:15 Dose: 1 appful Documented by: Clopidogrel Bisulfate (Plavix) 75 mg PO DAILY [facility] Dextrose (D50w Syringe) 0 gm IV X1 PRN; Protocol PRN Reason: Hypoglycemia Glucagon () 1 mg IM .X1 PRN PRN Reason: Hypoglycemia Azithromycin 500 mg/ Dextrose 255 mls @ 250 mls/hr IV Q24 [facility] Stop: 05/16/19 11:02 Last Infusion: 05/14/19 19:46 Dose: Infused Documented by: Amiodarone HCl 360 mg/ (Dextrose) 200 mls @ 16.667 mls/hr CONT INF .Q12H [facility] Last Infusion: 05/15/19 05:51 Dose: 0.5 mg/min, 16.7 mls/hr Documented by: Insulin Human Lispro (Humalog Kwikpen (Bkc)) 0 unit SC Q6 [facility]; Protocol Last Admin: 05/15/19 04:43 Dose: Not Given Documented by: Melatonin (Melatonin) 3 mg PO QHS PRN PRN PRN Reason: INSOMNIA Ondansetron HCl (Zofran) 4 mg IV Q8H PRN PRN PRN Reason: NAUSEA/VOMITING Sodium Chloride () 10 - 40 ml IV UD PRN PRN Reason: SALINE FLUSH Last Admin: 05/13/19 19:49 Dose: 10 ml Documented by: STROKE Vital Signs/Narrative: Vital Signs Temp Pulse Resp BP Pulse Ox 05/15/19 06:00 97 16 84/48 L 91 05/15/19 05:00 99 17 94 05/15/19 04:00 99.5 F H 98 17 99/72 92 Medical Necessity - Tobacco Use Smoking Status: Former smoker Tobacco Use: Cigarettes Assessment/Plan All Active Problems (Last Reviewed 12/04/18 @ 15:24 by Javon Zapata MD) Acute renal failure (Acute) 1. JESI, likely prerenal in the setting of acute gastroenteritis, s/p HD (day 2) Urine outut has started to bulk picker. >2L since yesterday Nephrology following, will keep euvlemic, IVF 100mls/hr x 1 L Encourage patient to also drink 2. Acute campylobacter gastroenteritis, C. difficile negative, enteric panel showed campylobacter On day 2 of azithromycin, aiming for 3 days total Continue with gentle IV fluids 3. Metabolic acidosis secondary to acute kidney injury and acute gastroenteritis, resolved with dialysis Off bicarbonate drip, labs in am 4. New onset atrial fibrillation likely secondary to acute critical state, remains in A. fib, rate controlled on amiodarone drip Will cntinue to monitor 5. Lactic acid secondary to hypoxia and dehydration, 6. Acute respiratory insufficiency, off oxygen now, Will continue to monitor 7. Leukocytosis likely reactive, no signs of sepsis, resolved 8. Hyponatremia secondary to acute gastroenteritis/JESI, Resolving with dialysis 9. Hypertension, relatively hypotensive, on IV fluids Will continue to hold off lisinopril, metoprolol as well as amlodipine Continue to monitor 10. CAD s/p stents, will resume aspirin and metoprolol 11. DVT PPx- Heparin SC Code Visit Inpatient E&M: 59293 Subs Hosp L3
--- NOTE | 2019-05-15 11:58 | PN_ITS ---
Patient Problems: Active and Suspected Problems (Last Reviewed 12/04/18 @ 15:24 by Javon Zapata MD) Infectious diarrhea in adult patient (Suspected) Acute renal failure (Acute) Subjective: better diarrhea no other c/o no abd pain - Physical Exam Vitals/I&O's: Vital Signs Temp Pulse Resp BP Pulse Ox 99.5 F H 107 H 16 91/71 91 05/15/19 04:00 05/15/19 10:15 05/15/19 06:00 05/15/19 10:15 05/15/19 06:00 Oxygen Flow Rate (L/min) 2 Oxygen Delivery Method Room Air Weight: 106.9 kg Body Mass Index (BMI) 31.1 Intake and Output for Last 24 Hours 05/13/19 05/14/19 05/15/19 23:59 23:59 23:59 Intake Total 1999 9127.77 / 9127.77 965.98 / 965.98 Output Total 3510 / 3510 400 / 400 Balance 1999 5617.77 / 5617.77 565.98 / 565.98 General: Alert, Oriented x3, Cooperative HEENT: Atraumatic, PERRLA, EOMI, Normocephalic Neck: Supple, No JVD, Negative Carotid Bruits Lungs: Clear to auscultation, Normal air movement Cardiovascular: Regular rate, No murmurs Abdomen: Bowel Sounds Present, Soft, Non Tender, Obese Extremities: No edema, Capillary Refill Less than 3 Seconds Skin: No rashes, No breakdown Musculoskeletal: No Tenderness to Palpation of Joints or Extremities Neurological: Cranial nerves II-XII grossly intact Psych/Mental Status: Normal Affect, Appropriate Microbiology Past 72 Hours 05/13/19 19:25 Stool Enteric Bacteriology - Final Campylobacter species 05/14/19 08:00 Stool Stool Occult Blood (ZIYAD) - Final Occult Blood Positive 05/13/19 19:25 Stool C. difficile DNA Amplification - Final Laboratory Results 05/13/19 16:00: Diff Path Review Reviewed 05/14/19 03:25: Diff Path Review Reviewed 05/14/19 03:25: PTH Intact 518.1 H 05/14/19 11:12: Urine Osmolality 313 05/14/19 11:12: Urine Chloride 39 05/14/19 11:12: Ur Random Sodium 56 05/14/19 11:45: Sodium 128 L, Potassium 3.8, Chloride 93 L, Carbon Dioxide 13.0 L, Anion Gap 22 H, BUN 103 H*, Creatinine 15.00 H*, Estim Creat Clear Calc 5.62, Est GFR (MDRD) Af Amer 4 L, Est GFR (MDRD) Non-Af 4 L, BUN/Creatinine Ratio 6.9 L, Glucose 115 H, Calcium 6.5 L* 05/14/19 11:45: Magnesium 1.9, Albumin 2.4 L 05/14/19 12:02: POC Glucose 142 H 05/14/19 12:40: Serum Osmolality 300 05/14/19 12:40: Ionized Calcium Pending 05/14/19 12:40: Hep Bs Antigen Non-Reactive, Hep Bs Antibody Non-Reactive 05/14/19 12:50: Urine Creatinine 154.00 05/14/19 14:35: Vit D 1,25-Dihydroxy Pending 05/14/19 17:46: POC Glucose 143 H 05/14/19 23:23: POC Glucose 121 H 05/15/19 04:00: WBC 9.8, RBC 5.12, Hgb 15.0, Hct 42.6, MCV 83.2, MCH 29.3, MCHC 35.2, RDW Std Deviation 38.7, RDW Coeff of [place] 12.7, Plt Count 181, MPV 11.5, Immature Gran % (Auto) 0.800, Neut % (Auto) 59.0, Lymph % (Auto) 21.5, [place] % (Auto) 17.9 H, Eos % (Auto) 0.2, Baso % (Auto) 0.6, Absolute Neuts (auto) 5.7, Absolute Lymphs (auto) 2.10, Nucleated RBC % 0 05/15/19 04:00: Sodium 132 L, Potassium 3.1 L, Chloride 93 L, Carbon Dioxide 23.0, Anion Gap 16 H, BUN 68 H, Creatinine 7.67 H*, Estim Creat Clear Calc 11.00, Est GFR (MDRD) Af Amer 9 L, Est GFR (MDRD) Non-Af 8 L, BUN/Creatinine Ratio 8.9 L, Glucose 113 H, Calcium 7.6 L, Magnesium 1.9, Total Bilirubin 0.60, AST 17, ALT 21, Alkaline Phosphatase 73, Total Protein 6.9, Albumin 2.4 L, Globulin 4.5 H, Albumin/Globulin Ratio 0.5 L Current Medications Acetaminophen (Tylenol) 650 mg PO Q6H PRN PRN PRN Reason: Pain Score 1-3/Temp > 100.7 F Aspirin (Aspirin, Baby) 81 mg PO DAILY@0800 [facility] Calamine/Phenol (Calmoseptine Ointment) 1 applic TOPICAL BID [facility] Last Admin: 05/14/19 23:15 Dose: 1 appful Documented by: Clopidogrel Bisulfate (Plavix) 75 mg PO DAILY [facility] Dextrose (D50w Syringe) 0 gm IV X1 PRN; Protocol PRN Reason: Hypoglycemia Glucagon () 1 mg IM .X1 PRN PRN Reason: Hypoglycemia Amiodarone HCl 360 mg/ (Dextrose) 200 mls @ 16.667 mls/hr CONT INF .Q12H [facility] Last Admin: 05/15/19 08:24 Dose: 0.5 mg/min, 16.7 mls/hr Documented by: Insulin Human Lispro (Humalog Kwikpen (Bkc)) 0 unit SC Q6 [facility]; Protocol Last Admin: 05/15/19 04:43 Dose: Not Given Documented by: Melatonin (Melatonin) 3 mg PO QHS PRN PRN PRN Reason: INSOMNIA Ondansetron HCl (Zofran) 4 mg IV Q8H PRN PRN PRN Reason: NAUSEA/VOMITING Sodium Chloride () 10 - 40 ml IV UD PRN PRN Reason: SALINE FLUSH Last Admin: 05/13/19 19:49 Dose: 10 ml Documented by: Medical Necessity - Tobacco Use Smoking Status: Former smoker Tobacco Use: Cigarettes Assessment/Plan All Active Problems (Last Reviewed 12/04/18 @ 15:24 by Javon Zapata MD) Acute renal failure (Acute) Acute kidney injury?ATN?white multifactorial with fluid depletion hypotension and contrast-induced nephropathy Metabolic acidosis multifactorial with renal failure and diarrhea and lactic acidosis resolved Hyponatremia likely hypovolemic Chronic kidney disease stage III likely with hypertensive nephrosclerosis Baseline creatinine 1.3?1.5 Diarrhea hypotension Leukocytosis Polycythemia Coronary artery disease status post CABG off ivf now Keep mean arterial blood pressure more than 65. Strict input and output Quantify proteinuria later Sodium [id number] Avoid nephrotoxins much better uop hold dialysis after today will evaluate daily [employer] needs. labs after HD yesterday noted
[2019-05-15] MEDS: Heparin 10,000 UNITS/10 ML Vial 2600 UNITS IV (12:29)
[2019-05-15] MEDS: Aspirin 81 MG TAB.CHEW PO (12:29)
[2019-05-15] MEDS: Menthol/Lanolin/Calamine/Znox 113 GM Tube 1 APPLIC TOPICAL (12:31)
[2019-05-15] MEDS: Clopidogrel Bisulfate 75 MG Tablet PO (12:32)
[2019-05-15] MEDS: 0.9% Saline Lock 10 ML Syringe IV (12:35)
[2019-05-15 12:45] LABS: Bedside Glucose 114 mg/dL (70-110)
[2019-05-15] MEDS: 0.9% Normal Saline 1,000 ML 75 ML IV (14:00)
--- NOTE | 2019-05-15 14:03 | CASEMGMT ---
SW met w/pt in the room in regard to history of alcohol use as documented by physician. SW introduced self to pt, asked pt about alcohol consumption. Pt states he does not have any issue with alcohol, and asked if this is why the SW came in to speak w/him. SW explained that we see patients for many different reasons, and substance abuse is one of the reasons. Pt denies having any issue with alcohol. Pt not interested in any information or referrals at this time. SW remains available should any needs arise. FREEDOM Dumont
--- NOTE | 2019-05-15 14:49 | CASEMGMT ---
RN CM Assessment Presentation: Camplobacter infection Intro role of CM and purpose of RN CM assessment to patient in ICU. Pt is awake, alert and able to participate in assessment. Demographics, PCP and Pharmacy verified. Pt states he is independent at home and has no concerns re: dc to home. PCP: Dr. Durham Specialists: Dr. Mosley, Monotypist, Dr. Marquez, Nephrology Preferred Pharmacy: [facility] Insurance: [facility] Prescription Benefit: yes LNOK: Living Arrangements: Lives independently with . States no care needs and is independent at home. Transportation: drives DME: cpap HHC: none Patient DC goals: home DC PLAN: anticipate home on discharge. Pt is currently receiving hemodialysis. CM will follow and assist if hemodialysis is needed on dc. PT/OT evaluations pending. Romero FISHN RN ACM
[2019-05-15] MEDS: Amiodarone 200 MG Tablet PO (16:22)
[2019-05-15 17:45] LABS: Bedside Glucose 108 mg/dL (70-110)
[2019-05-15 17:52] LABS: Mucous, Urine 0 SEEN /hpf (<or=2+)
[2019-05-15 17:55] LABS: Color, Urine Yellow (Yellow); Glucose, Dipstick 50 mg/dl (Normal); Ketone-Dipstick 5 mg/dl (Negative); Leukocyte Esterase-Dipstick 100 /ul (Negative); Nitrite-Dipstick Negative (Negative); Occult Blood-Urine 250 /ul (Negative); Protein-Dipstick 100 mg/dl (Negative); Urine Bilirubin Dipstick Negative (Negative); Urine Clarity Cloudy (Clear); Urine Urobilinogen Normal (Normal)
[2019-05-15 18:10] LABS: Bacteria 2+ /hpf (None Seen); Red Blood Cells-Urine > 100 SEEN /hpf (0-5); Squamous Epithelial Cells - UA 0-5 SEEN /hpf (0-5); White Blood Cells 10-25 SEEN /hpf (0-5)
[2019-05-16] VITALS (16 sets, daily range): BP systolic 78–119; BP diastolic 50–84; PULSE 76–115; RESP 13–20; TEMP 36.6–37.6; O2SAT 92–98
[2019-05-16 02:05] LABS: Bedside Glucose 95 mg/dL (70-110)
[2019-05-16 06:26] LABS: Bedside Glucose 87 mg/dL (70-110)
[2019-05-16 06:27] LABS: Absolute Lymphocyte Count 2.06 X10^3/uL (0.83-4.51); Absolute Neutrophil Count 7.5 X10^3/uL (2.0-7.7); Basophil# 0.06 X10^3/uL; Basophil% 0.5 % (0-1); Eosinophil# 0.11 X10^3/uL; Hematocrit 45.2 % (40-54); Hemoglobin 15.3 g/dL (13.0-16.5); Lymphocyte # 2.06 X10^3/ul (4.0); Lymphocyte % 18.4 % (19-41); Mean Corp Hgb Conc 33.8 g/dL (32-36); Mean Corpuscular Hgb 29.3 pg (27.0-32.0); Mean Corpuscular Volume 86.6 fL (80-94); Mean Platelet Vol. 11.2 fl (6.2-12.0); Monocyte# 1.35 X10^3/uL; Monocyte% 12.1 % (0-10); NRBC Flagged by Analyzer 0 % (0-5); Neutrophil # 7.48 X10^3/uL (2.7-7.7); Platelet Count 191 K/mm3 (150-450); RBC Distribution Width CV 13.1 % (11.6-14.6); RBC Distribution Width SD 41.3 fl (35.1-43.9); Red Blood Count 5.22 M/mm3 (4.6-6.2); White Blood Count 11.2 K/mm3 (4.4-11.0)
[2019-05-16 06:43] LABS: Anion Gap 10 (5-15); BUN 42 mg/dL (7-18); BUN/Creat Ratio 12.2 RATIO (10-20); Chloride 100 mmol/L (98-107); Creatinine, Serum 3.43 mg/dL (0.70-1.30); EST Glomerular Filtration Rate 19 mL/min (>60); Est Glom Filt Rate - Afr Amer 23 mL/min (>60); Estimated Creatinine Clearance 24.59 ml/min; Glucose 93 mg/dL (74-106); Magnesium 1.8 mg/dL (1.6-2.6); Phosphorus 3.3 mg/dL (2.5-4.9); Potassium 3.4 mmol/L (3.5-5.1); Sodium Level 135 mmol/L (136-145)
--- NOTE | 2019-05-16 07:10 | PCM.PN.INT ---
Subjective: Patient did well overnight. No acute issues were reported. Patient has not required any pressor agents or fluid boluses. Patient did have a mild fever, so urine culture was obtained. Patient tolerating room air. Patient did have hemodialysis yesterday and tolerated well. Patient believes his stool is frequent, but becoming more formed. General: Alert, Oriented x3, Cooperative, No apparent distress, Well developed, Well nourished, - - Obese. No conversational dyspnea. HEENT: Atraumatic, PERRLA, EOMI, Normocephalic, - - No scleral icterus or injection noted Oral: Moist Mucosa, No Gingival or Mucosal Lesions/ Ulcerations Neck: Supple, No JVD, No Nodes, Trachea Midline Lungs: No rhonchi, No wheeze, No rales, Diminished, - - Symmetric expansion. No dullness to percussion. Cardiovascular: Normal S1, Normal S2, No murmurs, Irregular Rate, No rub noted, No Gallop Abdomen: Soft, Non Tender, Non-Distended, Hyperactive Bowel Sounds, Obese Extremities: No clubbing, No cyanosis, No edema, Capillary Refill Less than 3 Seconds Skin: No rashes, No breakdown Musculoskeletal: No Tenderness to Palpation of Joints or Extremities Lymphatic: No Cervical, Supraclavicular, or Inguinal Adenopathy Neurological: Cranial nerves II-XII grossly intact, Neuro grossly intact, Motor Exam 5/5 strength throughout Psych/Mental Status: Alert and oriented to time, place, person, mood and affect Vital Signs Temp Pulse Resp BP Pulse Ox 37.3 C 76 13 93/58 L 92 05/16/19 06:00 05/16/19 06:00 05/16/19 06:00 05/16/19 06:00 05/16/19 06:00 Oxygen Flow Rate (L/min) 2 Oxygen Delivery Method Room Air Weight: 107.8 kg Body Mass Index (BMI) 31.1 Intake and Output for Last 24 Hours 05/14/19 05/15/19 05/16/19 23:59 23:59 23:59 Intake Total 9127.77 / 9127.77 4364.20 / 5804.20 2380 / 2380 Output Total 3510 / 3510 3325 / 5300 2625 / 2625 Balance 5617.77 / 5617.77 1039.20 / 504.20 -245 / -245 Labs (Last 48 Hours) 05/13/19 05/13/19 05/13/19 16:00 19:30 19:30 WBC RBC Hgb Hct MCV MCH MCHC RDW Std Deviation RDW Coeff of [place] Plt Count MPV Immature Gran % (Auto) Neut % (Auto) Lymph % (Auto) [place] % (Auto) Eos % (Auto) Baso % (Auto) Absolute Neuts (auto) Absolute Lymphs (auto) Nucleated RBC % Diff Path Review Reviewed Sodium Potassium Chloride Carbon Dioxide Anion Gap BUN Creatinine Estim Creat Clear Calc Est GFR (MDRD) Af Amer Est GFR (MDRD) Non-Af BUN/Creatinine Ratio Glucose Serum Osmolality Calcium Ionized Calcium Phosphorus Magnesium Total Bilirubin AST ALT Alkaline Phosphatase Total Protein Albumin Globulin Albumin/Globulin Ratio Vit D 1,25-Dihydroxy PTH Intact Urine Color Urine Clarity Urine pH Ur Specific [place] Urine Protein Urine Glucose (UA) Urine Ketones Urine Occult Blood Urine Nitrite Urine Bilirubin Urine Urobilinogen Ur Leukocyte Esterase Urine RBC Urine WBC Ur Squamous Epith Cells Urine Bacteria Urine Mucus Urine Osmolality Ur Random Sodium 24 Urine Creatinine 364.00 Urine Chloride Hep Bs Antigen Hep Bs Antibody POC Glucose 05/14/19 05/14/19 05/14/19 03:25 03:25 11:12 WBC RBC Hgb Hct MCV MCH MCHC RDW Std Deviation RDW Coeff of [place] Plt Count MPV Immature Gran % (Auto) Neut % (Auto) Lymph % (Auto) [place] % (Auto) Eos % (Auto) Baso % (Auto) Absolute Neuts (auto) Absolute Lymphs (auto) Nucleated RBC % Diff Path Review Reviewed Sodium Potassium Chloride Carbon Dioxide Anion Gap BUN Creatinine Estim Creat Clear Calc Est GFR (MDRD) Af Amer Est GFR (MDRD) Non-Af BUN/Creatinine Ratio Glucose Serum Osmolality Calcium Ionized Calcium Phosphorus Magnesium Total Bilirubin AST ALT Alkaline Phosphatase Total Protein Albumin Globulin Albumin/Globulin Ratio Vit D 1,25-Dihydroxy PTH Intact 518.1 H Urine Color Urine Clarity Urine pH Ur Specific [place] Urine Protein Urine Glucose (UA) Urine Ketones Urine Occult Blood Urine Nitrite Urine Bilirubin Urine Urobilinogen Ur Leukocyte Esterase Urine RBC Urine WBC Ur Squamous Epith Cells Urine Bacteria Urine Mucus Urine Osmolality 313 Ur Random Sodium Urine Creatinine Urine Chloride Hep Bs Antigen Hep Bs Antibody POC Glucose 05/14/19 05/14/19 05/14/19 11:12 11:12 11:45 WBC RBC Hgb Hct MCV MCH MCHC RDW Std Deviation RDW Coeff of [place] Plt Count MPV Immature Gran % (Auto) Neut % (Auto) Lymph % (Auto) [place] % (Auto) Eos % (Auto) Baso % (Auto) Absolute Neuts (auto) Absolute Lymphs (auto) Nucleated RBC % Diff Path Review Sodium 128 L Potassium 3.8 Chloride 93 L Carbon Dioxide 13.0 L Anion Gap 22 H BUN 103 H* Creatinine 15.00 H* Estim Creat Clear Calc 5.62 Est GFR (MDRD) Af Amer 4 L Est GFR (MDRD) Non-Af 4 L BUN/Creatinine Ratio 6.9 L Glucose 115 H Serum Osmolality Calcium 6.5 L* Ionized Calcium Phosphorus Magnesium Total Bilirubin AST ALT Alkaline Phosphatase Total Protein Albumin Globulin Albumin/Globulin Ratio Vit D 1,25-Dihydroxy PTH Intact Urine Color Urine Clarity Urine pH Ur Specific [place] Urine Protein Urine Glucose (UA) Urine Ketones Urine Occult Blood Urine Nitrite Urine Bilirubin Urine Urobilinogen Ur Leukocyte Esterase Urine RBC Urine WBC Ur Squamous Epith Cells Urine Bacteria Urine Mucus Urine Osmolality Ur Random Sodium 56 Urine Creatinine Urine Chloride 39 Hep Bs Antigen Hep Bs Antibody POC Glucose 05/14/19 05/14/19 05/14/19 11:45 12:02 12:40 WBC RBC Hgb Hct MCV MCH MCHC RDW Std Deviation RDW Coeff of [place] Plt Count MPV Immature Gran % (Auto) Neut % (Auto) Lymph % (Auto) [place] % (Auto) Eos % (Auto) Baso % (Auto) Absolute Neuts (auto) Absolute Lymphs (auto) Nucleated RBC % Diff Path Review Sodium Potassium Chloride Carbon Dioxide Anion Gap BUN Creatinine Estim Creat Clear Calc Est GFR (MDRD) Af Amer Est GFR (MDRD) Non-Af BUN/Creatinine Ratio Glucose Serum Osmolality 300 Calcium Ionized Calcium Phosphorus Magnesium 1.9 Total Bilirubin AST ALT Alkaline Phosphatase Total Protein Albumin 2.4 L Globulin Albumin/Globulin Ratio Vit D 1,25-Dihydroxy PTH Intact Urine Color Urine Clarity Urine pH Ur Specific [place] Urine Protein Urine Glucose (UA) Urine Ketones Urine Occult Blood Urine Nitrite Urine Bilirubin Urine Urobilinogen Ur Leukocyte Esterase Urine RBC Urine WBC Ur Squamous Epith Cells Urine Bacteria Urine Mucus Urine Osmolality Ur Random Sodium Urine Creatinine Urine Chloride Hep Bs Antigen Hep Bs Antibody POC Glucose 142 H 05/14/19 05/14/19 05/14/19 12:40 12:40 12:50 WBC RBC Hgb Hct MCV MCH MCHC RDW Std Deviation RDW Coeff of [place] Plt Count MPV Immature Gran % (Auto) Neut % (Auto) Lymph % (Auto) [place] % (Auto) Eos % (Auto) Baso % (Auto) Absolute Neuts (auto) Absolute Lymphs (auto) Nucleated RBC % Diff Path Review Sodium Potassium Chloride Carbon Dioxide Anion Gap BUN Creatinine Estim Creat Clear Calc Est GFR (MDRD) Af Amer Est GFR (MDRD) Non-Af BUN/Creatinine Ratio Glucose Serum Osmolality Calcium Ionized Calcium 3.6 L Phosphorus Magnesium Total Bilirubin AST ALT Alkaline Phosphatase Total Protein Albumin Globulin Albumin/Globulin Ratio Vit D 1,25-Dihydroxy PTH Intact Urine Color Urine Clarity Urine pH Ur Specific [place] Urine Protein Urine Glucose (UA) Urine Ketones Urine Occult Blood Urine Nitrite Urine Bilirubin Urine Urobilinogen Ur Leukocyte Esterase Urine RBC Urine WBC Ur Squamous Epith Cells Urine Bacteria Urine Mucus Urine Osmolality Ur Random Sodium Urine Creatinine 154.00 Urine Chloride Hep Bs Antigen Non-Reactive Hep Bs Antibody Non-Reactive POC Glucose 05/14/19 05/14/19 05/14/19 14:35 17:46 23:23 WBC RBC Hgb Hct MCV MCH MCHC RDW Std Deviation RDW Coeff of [place] Plt Count MPV Immature Gran % (Auto) Neut % (Auto) Lymph % (Auto) [place] % (Auto) Eos % (Auto) Baso % (Auto) Absolute Neuts (auto) Absolute Lymphs (auto) Nucleated RBC % Diff Path Review Sodium Potassium Chloride Carbon Dioxide Anion Gap BUN Creatinine Estim Creat Clear Calc Est GFR (MDRD) Af Amer Est GFR (MDRD) Non-Af BUN/Creatinine Ratio Glucose Serum Osmolality Calcium Ionized Calcium Phosphorus Magnesium Total Bilirubin AST ALT Alkaline Phosphatase Total Protein Albumin Globulin Albumin/Globulin Ratio Vit D 1,25-Dihydroxy Pending PTH Intact Urine Color Urine Clarity Urine pH Ur Specific [place] Urine Protein Urine Glucose (UA) Urine Ketones Urine Occult Blood Urine Nitrite Urine Bilirubin Urine Urobilinogen Ur Leukocyte Esterase Urine RBC Urine WBC Ur Squamous Epith Cells Urine Bacteria Urine Mucus Urine Osmolality Ur Random Sodium Urine Creatinine Urine Chloride Hep Bs Antigen Hep Bs Antibody POC Glucose 143 H 121 H 05/15/19 05/15/19 05/15/19 04:00 04:00 12:34 WBC 9.8 RBC 5.12 Hgb 15.0 Hct 42.6 MCV 83.2 MCH 29.3 MCHC 35.2 RDW Std Deviation 38.7 RDW Coeff of [place] 12.7 Plt Count 181 MPV 11.5 Immature Gran % (Auto) 0.800 Neut % (Auto) 59.0 Lymph % (Auto) 21.5 [place] % (Auto) 17.9 H Eos % (Auto) 0.2 Baso % (Auto) 0.6 Absolute Neuts (auto) 5.7 Absolute Lymphs (auto) 2.10 Nucleated RBC % 0 [address] Path Review Sodium 132 L Potassium 3.1 L Chloride 93 L Carbon Dioxide 23.0 Anion Gap 16 H BUN 68 H Creatinine 7.67 H* Estim Creat Clear Calc 11.00 Est GFR (MDRD) Af Amer 9 L Est GFR (MDRD) Non-Af 8 L BUN/Creatinine Ratio 8.9 L Glucose 113 H Serum Osmolality Calcium 7.6 L Ionized Calcium Phosphorus Magnesium 1.9 Total Bilirubin 0.60 AST 17 ALT 21 Alkaline Phosphatase 73 Total Protein 6.9 Albumin 2.4 L Globulin 4.5 H Albumin/Globulin Ratio 0.5 L Vit D 1,25-Dihydroxy PTH Intact Urine Color Urine Clarity Urine pH Ur Specific [place] Urine Protein Urine Glucose (UA) Urine Ketones Urine Occult Blood Urine Nitrite Urine Bilirubin Urine Urobilinogen Ur Leukocyte Esterase Urine RBC Urine WBC Ur Squamous Epith Cells Urine Bacteria Urine Mucus Urine Osmolality Ur Random Sodium Urine Creatinine Urine Chloride Hep Bs Antigen Hep Bs Antibody POC Glucose 114 H 05/15/19 05/15/19 05/16/19 17:30 17:35 01:59 WBC RBC Hgb Hct MCV MCH MCHC RDW Std Deviation RDW Coeff of [place] Plt Count MPV Immature Gran % (Auto) Neut % (Auto) Lymph % (Auto) [place] % (Auto) Eos % (Auto) Baso % (Auto) Absolute Neuts (auto) Absolute Lymphs (auto) Nucleated RBC % Diff Path Review Sodium Potassium Chloride Carbon Dioxide Anion Gap BUN Creatinine Estim Creat Clear Calc Est GFR (MDRD) Af Amer Est GFR (MDRD) Non-Af BUN/Creatinine Ratio Glucose Serum Osmolality Calcium Ionized Calcium Phosphorus Magnesium Total Bilirubin AST ALT Alkaline Phosphatase Total Protein Albumin Globulin Albumin/Globulin Ratio Vit D 1,25-Dihydroxy PTH Intact Urine Color Yellow Urine Clarity Cloudy Urine pH 5.0 Ur Specific [place] 1.020 Urine Protein 100 H Urine Glucose (UA) 50 H Urine Ketones 5 H Urine Occult Blood 250 H Urine Nitrite Negative Urine Bilirubin Negative Urine Urobilinogen Normal Ur Leukocyte Esterase 100 H Urine RBC > 100 SEEN Urine WBC 10-25 SEEN Ur Squamous Epith Cells 0-5 SEEN Urine Bacteria 2+ Urine Mucus 0 SEEN Urine Osmolality Ur Random Sodium Urine Creatinine Urine Chloride Hep Bs Antigen Hep Bs Antibody POC Glucose 108 95 05/16/19 05/16/19 05/16/19 06:15 06:15 06:20 WBC 11.2 H RBC 5.22 Hgb 15.3 Hct 45.2 MCV 86.6 MCH 29.3 MCHC 33.8 RDW Std Deviation 41.3 RDW Coeff of [place] 13.1 Plt Count 191 MPV 11.2 Immature Gran % (Auto) 1.000 H Neut % (Auto) 67.0 Lymph % (Auto) 18.4 L [place] % (Auto) 12.1 H Eos % (Auto) 1.0 Baso % (Auto) 0.5 Absolute Neuts (auto) 7.5 Absolute Lymphs (auto) 2.06 Nucleated RBC % 0 Diff Path Review Sodium 135 L Potassium 3.4 L Chloride 100 Carbon Dioxide 25.0 Anion Gap 10 BUN 42 H Creatinine 3.43 H Estim Creat Clear Calc 24.59 Est GFR (MDRD) Af Amer 23 L Est GFR (MDRD) Non-Af 19 L BUN/Creatinine Ratio 12.2 Glucose 93 Serum Osmolality Calcium 8.0 L Ionized Calcium Phosphorus 3.3 Magnesium 1.8 Total Bilirubin AST ALT Alkaline Phosphatase Total Protein Albumin Globulin Albumin/Globulin Ratio Vit D 1,25-Dihydroxy PTH Intact Urine Color Urine Clarity Urine pH Ur Specific [place] Urine Protein Urine Glucose (UA) Urine Ketones Urine Occult Blood Urine Nitrite Urine Bilirubin Urine Urobilinogen Ur Leukocyte Esterase Urine RBC Urine WBC Ur Squamous Epith Cells Urine Bacteria Urine Mucus Urine Osmolality Ur Random Sodium Urine Creatinine Urine Chloride Hep Bs Antigen Hep Bs Antibody POC Glucose 87 Microbiology 05/13/19 19:25 Stool Enteric Bacteriology - Final Campylobacter species 05/14/19 08:00 Stool Stool Occult Blood (ZIYAD) - Final Occult Blood Positive Medical Necessity - Tobacco Use Smoking Status: Former smoker Tobacco Use: Cigarettes Assessment/Plan All Active Problems (Last Reviewed 12/04/18 @ 15:24 by Javon Zapata MD) Acute renal failure (Acute) RECOMMENDATIONS: 1. Encourage p.o. fluid intake, discontinue Fierro catheter 2. Reportedly holding on hemodialysis today to monitor response 3. Walking oximetry prior to discharge 4. Monitor rate control, may consider cardiology consult if A. fib with RVR persists 5. Supportive measures for diarrhea 6. Await nephrology recommendations 7. Consider systemic anticoagulation versus cardiology consult 8. Okay to leave the intensive care unit from my perspective IMPRESSIONS: 1. Acute renal failure Likely multifactorial. Exact etiology is unclear at this time. Patient does have some suggestion of nephritic syndrome on UA. Patient also has significant diarrhea, so prerenal etiology would be a possibility. Clinical suspicion for the development of ATN given high creatinine and BUN. This likely has been going on for longer than 6 days and the diarrhea may be a result of the renal failure. Nephrology is following. Patient has responded well to hemodialysis. Patient does have a history of CHF, so fluids have been minimalized. Will discontinue Fierro catheter to decrease infection risk. Continue to monitor urine output 2. Acute infectious diarrhea secondary to Campylobacter Patient is describing possible exposure to raw chicken in the last week. No signs or symptoms of bacteremia at this time. Will attempt to hold off on antibiotics for now. Patient reports some improvement in diarrheal output 3. Anion gap and non-anion gap metabolic acidosis Improved. Patient with significant acidosis on presentation. Patient has been receiving bicarbonate, but this will be discontinued secondary to fluid concerns. Acidosis much improved following hemodialysis 4. Alcohol dependence Patient does admit to 3-4 vodka drinks per night. Patient is on the CIWA protocol, but does not report a history of withdrawal symptoms in the past. Patient with no signs of withdrawal after 48 hours. Okay to discontinue CIWA protocol 5. Chronic systolic congestive heart failure status post CABG and stents/new onset A. fib Okay to continue with aspirin and Plavix for now. Would hold other medications during the acute phase. Patient may require volume removal with hemodialysis. Fluids will be minimalized. A. fib has persisted. Patient is on p.o. amiodarone. Consider systemic anticoagulation. 6. Obesity/history of tobacco use/GERD/hyperlipidemia/hypertension Complicates care, management, recovery and prognosis. Patient would likely benefit from outpatient pulmonary function test for quantification and clarification of lung function. Antihypertensives have been held secondary to hypotension. Reasonable to hold statin at this time. Patient is on a PPI. Code Visit Inpatient E&M: 04006 Init Hosp L3
--- NOTE | 2019-05-16 07:33 | PN_ITS ---
Patient Problems: Active and Suspected Problems (Last Reviewed 12/04/18 @ 15:24 by Javon Zapata MD) Infectious diarrhea in adult patient (Suspected) Acute renal failure (Acute) Subjective: Follow-up on hypertension, Campylobacter infection, JESI: Patient was seen and examined. Patient was found to have a temperature. Core temperature was 100.2. Urine cultures were sent and are pending. UA was cloudy, WBC count 10-25, we will start on IV ceftriaxone. He otherwise had had only 3 bowel movements today. This is improved from having bowel movements every. He felt that the last few bowel movements were starting to be formed. He denied any fever or chills or abdominal discomfort. Objective: Physical exam: General: Alert, Oriented x3, Cooperative, No apparent distress HEENT: Atraumatic, PERRLA, EOMI, Normocephalic Neck: Supple, No JVD, Negative Carotid Bruits Lungs: Clear to auscultation, Normal air movement Cardiovascular: Regular rate, Regular Rhythm, Normal S1, Normal S2 Abdomen: Bowel Sounds Present, Soft, Non-Distended, Tender - epigastric and RUQ tenderness with guarding but no RBT Extremities: No edema Skin: No rashes Musculoskeletal: No Tenderness to Palpation of Joints or Extremities Lymphatic: No Cervical, Supraclavicular, or Inguinal Adenopathy Neurological: Cranial nerves II-XII grossly intact, Neuro grossly intact Psych/Mental Status: Normal Affect, Appropriate Vitals/I&O's: Vital Signs Temp Pulse Resp BP Pulse Ox 99.1 F 76 13 93/58 L 92 05/16/19 06:00 05/16/19 06:00 05/16/19 06:00 05/16/19 06:00 05/16/19 06:00 Oxygen Flow Rate (L/min) 2 Oxygen Delivery Method Room Air Weight: 107.8 kg Body Mass Index (BMI) 31.1 Intake and Output for Last 24 Hours 05/14/19 05/15/19 05/16/19 23:59 23:59 23:59 Intake Total 9127.77 / 9127.77 4364.20 / 5804.20 2380 / 2380 Output Total 3510 / 3510 3325 / 5300 2625 / 2625 Balance 5617.77 / 5617.77 1039.20 / 504.20 -245 / -245 Microbiology Past 72 Hours 05/13/19 19:25 Stool Enteric Bacteriology - Final Campylobacter species 05/14/19 08:00 Stool Stool Occult Blood (ZIYAD) - Final Occult Blood Positive 05/13/19 19:25 Stool C. difficile DNA Amplification - Final Laboratory Results 05/14/19 12:40: Ionized Calcium 3.6 L 05/15/19 12:34: POC Glucose 114 H 05/15/19 17:30: Urine Color Yellow, Urine Clarity Cloudy, Urine pH 5.0, Ur Specific [place] 1.020, Urine Protein 100 H, Urine Glucose (UA) 50 H, Urine Ketones 5 H, Urine Occult Blood 250 H, Urine Nitrite Negative, Urine Bilirubin Negative, Urine Urobilinogen Normal, Ur Leukocyte Esterase 100 H, Urine RBC > 100 SEEN, Urine WBC 10-25 SEEN, Ur Squamous Epith Cells 0-5 SEEN, Urine Bacteria 2+, Urine Mucus 0 SEEN 05/15/19 17:35: POC Glucose 108 05/16/19 01:59: POC Glucose 95 05/16/19 06:15: WBC 11.2 H, RBC 5.22, Hgb 15.3, Hct 45.2, MCV 86.6, MCH 29.3, MCHC 33.8, RDW Std Deviation 41.3, RDW Coeff of [place] 13.1, Plt Count 191, MPV 11.2, Immature Gran % (Auto) 1.000 H, Neut % (Auto) 67.0, Lymph % (Auto) 18.4 L, [place] % (Auto) 12.1 H, Eos % (Auto) 1.0, Baso % (Auto) 0.5, Absolute Neuts (auto) 7.5, Absolute Lymphs (auto) 2.06, Nucleated RBC % 0 05/16/19 06:15: Sodium 135 L, Potassium 3.4 L, Chloride 100, Carbon Dioxide 25.0, Anion Gap 10, BUN 42 H, Creatinine 3.43 H, Estim Creat Clear Calc 24.59, Est GFR (MDRD) Af Amer 23 L, Est GFR (MDRD) Non-Af 19 L, BUN/Creatinine Ratio 12.2, Glucose 93, Calcium 8.0 L, Phosphorus 3.3, Magnesium 1.8 05/16/19 06:20: POC Glucose 87 Current Medications Acetaminophen (Tylenol) 650 mg PO Q6H PRN PRN PRN Reason: Pain Score 1-3/Temp > 100.7 F Amiodarone HCl (Cordarone) 200 mg PO DAILY [facility] Last Admin: 05/15/19 16:22 Dose: 200 mg Documented by: Aspirin (Aspirin, Baby) 81 mg PO DAILY@0800 [facility] Last Admin: 05/15/19 12:29 Dose: 81 mg Documented by: Calamine/Phenol (Calmoseptine Ointment) 1 applic TOPICAL BID [facility] Last Admin: 05/16/19 02:02 Dose: Not Given Documented by: Clopidogrel Bisulfate (Plavix) 75 mg PO DAILY [facility] Last Admin: 05/15/19 12:32 Dose: 75 mg Documented by: Dextrose (D50w Syringe) 0 gm IV X1 PRN; Protocol PRN Reason: Hypoglycemia Glucagon () 1 mg IM .X1 PRN PRN Reason: Hypoglycemia Melatonin (Melatonin) 3 mg PO QHS PRN PRN PRN Reason: INSOMNIA Ondansetron HCl (Zofran) 4 mg IV Q8H PRN PRN PRN Reason: NAUSEA/VOMITING Sodium Chloride () 10 - 40 ml IV UD PRN PRN Reason: SALINE FLUSH Last Admin: 05/15/19 12:35 Dose: 40 ml Documented by: STROKE Vital Signs/Narrative: Vital Signs Temp Pulse Resp BP Pulse Ox 05/16/19 06:00 99.1 F 76 13 93/58 L 92 05/16/19 05:00 99.4 F H 106 H 20 H 89/61 L 92 05/16/19 04:00 99.1 F 95 20 H 94/61 93 05/16/19 03:35 102 H Medical Necessity - Tobacco Use Smoking Status: Former smoker Tobacco Use: Cigarettes Assessment/Plan All Active Problems (Last Reviewed 12/04/18 @ 15:24 by Javon Zapata MD) Acute renal failure (Acute) 1. JESI, likely prerenal in the setting of acute gastroenteritis, improving, s/p 2 days of hemodialysis. No dialysis yesterday. Creatinine currently is 3.43, down from 7.67 Urine output has also increased Nephrology following, Will encourage patient to take liberal oral fluids, repeat BMP in a.m. 2. Acute campylobacter gastroenteritis, C. difficile negative, enteric panel showed campylobacter On day 3 of azithromycin, Will stop after today 3. Metabolic acidosis secondary to acute kidney injury and acute gastroenteritis, resolved with dialysis 4. New onset atrial fibrillation likely secondary to acute critical state, remains in A. fib, fairly controlled on amiodarone po, will continue to monitor, cardiology consult 5. Lactic acid secondary to hypoxia and dehydration, resolved 6. Acute respiratory insufficiency, resolved, will continue to monitor 7. Leukocytosis likely reactive, no signs of sepsis, resolved 8. Hyponatremia secondary to acute gastroenteritis/JESI, resolving with dialysis 9. Hypertension, Bp is still relatively low Will continue to hold off lisinopril, metoprolol as well as amlodipine Continue to monitor 10. CAD s/p stents, will resume aspirin and metoprolol 11. DVT PPx- Heparin SC Code Visit Inpatient E&M: 86723 Subs Hosp L2
[2019-05-16] MEDS: Aspirin 81 MG TAB.CHEW PO (07:48)
[2019-05-16] MEDS: Ceftriaxone 1 GM/50 ML BAG IV (10:54)
[2019-05-16] MEDS: Amiodarone 200 MG Tablet PO (10:55)
[2019-05-16] MEDS: Enoxaparin 100 MG/ML Syringe SC (10:55)
[2019-05-16] MEDS: Clopidogrel Bisulfate 75 MG Tablet PO (10:55)
[2019-05-16] MEDS: Menthol/Lanolin/Calamine/Znox 113 GM Tube 1 APPLIC TOPICAL ×2 (10:56→21:15)
--- NOTE | 2019-05-16 11:28 | PCM.CONS.C ---
<MayoarunLucian nice - Last Filed: 05/16/19 15:57> Reason for Consult History of Present Illness: The patient is a 63 year old M [] Past Medical History Allergies/Adverse Reactions: Allergies No Known Allergies Allergy (Verified 05/13/19 15:46) Home Medications: Ambulatory Orders Medication Instructions Recorded Aspirin [Aspirin, Baby] 81 mg PO DAILY@0800 04/29/13 nitroglycerin 0.4 mg sublingual 0.4 mg SUBLINGUAL Q5M PRN #25 tab 11/16/17 tablet metoprolol succinate ER 100 mg 100 mg PO DAILY #90 tab 05/11/18 tablet,extended release 24 hr clopidogrel 75 mg tablet 75 mg PO DAILY #90 tab 08/02/18 pantoprazole 40 mg tablet,delayed 40 mg PO DAILY #90 tab 11/05/18 release amlodipine 10 mg tablet 10 mg PO DAILY #90 tab 11/09/18 atorvastatin 80 mg tablet 80 mg PO QHS #90 tab 12/04/18 lisinopril 10 mg tablet 10 mg PO DAILY 12/04/18 isosorbide mononitrate ER 60 mg 60 mg PO BID #180 tab 02/11/19 tablet,extended release 24 hr Past Medical History (Chronic Problems): Chronic Problems (Last Reviewed 12/04/18 @ 15:24 by Javon Zapata MD) H/O coronary artery bypass surgery (Chronic 12/03/07) CABG X 4 CANTRELL-LAD, SVG- Ramus, SVG-D1, left radial artery to the RCA bifurcation 12/03/2007 Atherosclerosis of coronary artery bypass graft without angina pectoris (Chronic) PCI-SAVI-Mid LAD 06/06/08; HGH-HFR-Oqclmq and Prox RCA 01/11/2016 CABG X 4 CANTRELL-LAD, SVG- Ramus, SVG-D1, left radial artery to the RCA bifurcation 12/03/2007 Essential (primary) hypertension (Chronic) History of inferior wall myocardial infarction (Chronic 2015) Ischemic cardiomyopathy (Chronic) History of coronary artery stent placement (Chronic 01/11/16) PCI-SAVI-Mid LAD 06/06/08; [id number] RCA w/ 3.5 x 28 mm Vision and BMS-Distal RCA w/ 4.5 x 28 mm Rebel Stent 01/11/2016 Paroxysmal ventricular tachycardia (Chronic) 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) HLD (hyperlipidemia) (Chronic) - *Family History Maternal Family History: Family History (Last Reviewed 12/04/18 @ 15:24 by Javon Zapata MD) Mother Cancer Father Cancer Brother HLD (hyperlipidemia) Paternal Family History: Family History (Last Reviewed 12/04/18 @ 15:24 by Javon Zapata MD) Mother Cancer Father Cancer Brother HLD (hyperlipidemia) Objective: Vital Signs Temp Pulse Resp BP Pulse Ox 97.9 F 91 20 H 105/68 95 05/16/19 13:54 05/16/19 15:20 05/16/19 13:54 05/16/19 13:54 05/16/19 13:54 Oxygen Flow Rate (L/min) 2 Oxygen Delivery Method Room Air Weight: 237 lb 10.533 oz Body Mass Index (BMI) 31.1 Intake and Output for Last 24 Hours 05/14/19 05/15/19 05/16/19 23:59 23:59 23:59 Intake Total 9127.77 / 9127.77 4364.20 / 5804.20 4570 / 4570 Output Total 3510 / 3510 3325 / 5300 2900 / 2900 Balance 5617.77 / 5617.77 1039.20 / 504.20 1670 / 1670 05/14/19 12:40: Ionized Calcium 3.6 L 05/15/19 17:30: Urine Color Yellow, Urine Clarity Cloudy, Urine pH 5.0, Ur Specific [place] 1.020, Urine Protein 100 H, Urine Glucose (UA) 50 H, Urine Ketones 5 H, Urine Occult Blood 250 H, Urine Nitrite Negative, Urine Bilirubin Negative, Urine Urobilinogen Normal, Ur Leukocyte Esterase 100 H, Urine RBC > 100 SEEN, Urine WBC 10-25 SEEN 05/16/19 06:15: WBC 11.2 H, RBC 5.22, Hgb 15.3, Hct 45.2, MCV 86.6, MCH 29.3, MCHC 33.8, Plt Count 191, MPV 11.2, Immature Gran % (Auto) 1.000 H, Neut % (Auto) 67.0, Lymph % (Auto) 18.4 L, [place] % (Auto) 12.1 H, Eos % (Auto) 1.0, Baso % (Auto) 0.5, Absolute Neuts (auto) 7.5, Nucleated RBC % 0 05/16/19 06:15: Sodium 135 L, Potassium 3.4 L, Chloride 100, Carbon Dioxide 25.0, Anion Gap 10, BUN 42 H, Creatinine 3.43 H, Est GFR (MDRD) Af Amer 23 L, Est GFR (MDRD) Non-Af 19 L, BUN/Creatinine Ratio 12.2, Glucose 93, Calcium 8.0 L, Phosphorus 3.3, Magnesium 1.8 Rhythm: EKG: ECHO: Stress Test: Cardiac Cath: PCI: CT Surgery: Holter monitor: EPS: PPM: CXR: Chest CT Scan: Assessment/Plan 1. A fib: Likely precipitated by current acute illness. Due to low BP, continue amiodarone now. When we are able to add Toprol xl and titrate it up, we may be able o d/c amiodarone. Discussed anticoagulation with patient. This can be started as outpatient as patient has multiple other issues going on at this time. 2. CAD: Stable 3. LV dysfunction: Stable. Off LAUREEN-I due to kidney injury. Off BB due to low BP. Will resume when BP allows. <Floridalma Cox - Last Filed: 05/17/19 09:35> Problem List (1) Atrial fibrillation Status: Acute (2) Infectious diarrhea in adult patient Status: Suspected (3) Acute renal failure Status: Acute Qualifiers: Acute renal failure type: with acute tubular necrosis Qualified Code(s): N17.0 - Acute kidney failure with tubular necrosis (4) Atherosclerosis of coronary artery bypass graft without angina pectoris Status: Chronic Comment: PCI-SAVI-Mid LAD 06/06/08; OHS-IST-Rguebn and Prox RCA 01/11/2016 CABG X 4 CANTRELL-LAD, SVG- Ramus, SVG-D1, left radial artery to the RCA bifurcation 12/03/2007 (5) Essential (primary) hypertension Status: Chronic (6) Ischemic cardiomyopathy Status: Chronic (7) HLD (hyperlipidemia) Status: Chronic Qualifiers: Hyperlipidemia type: pure hypercholesterolemia Qualified Code(s): E78.00 - Pure hypercholesterolemia, unspecified; E78.0 - Pure hypercholesterolemia Reason for Consult Date of Consultation: 05/16/19 History of Present Illness: The patient is a 63 year old M [that presented to the emergency room on May 13, 2019 with acute renal failure and infectious diarrhea. We have been asked to consult patient for his new onset of atrial fibrillation. He does have a history of coronary artery disease with bypass surgery in 2007,. In 2018 he had an acute myocardial infarction. He did undergo stenting to his RCA. His heart catheterization at that time demonstrated occluded LAD, diagonal branch 100% stenosis, occluded RCA, CANTRELL was noted to be anicteric. He did have a viability study done to assess his anterior left ventricular wall and to reimage his CANTRELL to his LAD be considered for chronic total occlusion PCI of the LAD. Patient did have a stress echo which demonstrated evidence of viability in the anterior wall and apex with mild ischemia however patient preferred to be treated with medical therapy. He also has a history of hypertension, ischemic cardiomyopathy( EF from 2016 demonstrated 50%), paroxysmal ventricular tachycardia, hyperlipidemia. States that prior to his admission he was exposed to raw chicken approximately 5 days before he presented to the emergency room. He has had diarrhea since that time. Upon admission to the emergency room he was noted to be tachypneic and bradycardic. Patient was also noted to have an elevated lactate of 5.5. He was also noted to be in acute renal failure with a creatinine of almost 17 and a BUN of over 100. It was also noted to be in atrial fibrillation, this is a new finding for patient. He was placed on IV amiodarone and has since switched to oral amiodarone. His Coreg and diltiazem were discontinued upon admission due to his renal failure. Nephrology was consulted and he was placed on dialysis. Prior to his admission patient does admit to occasional palpitations. However he is not aware of his atrial fibrillation during his hospital stay. He has not had any chest pain or worsening shortness of breath. He has not had any lower extremity edema.] Past Medical History Surgical History: coronary bypass surgery - 2007 Psychiatric History: No pertinent psych hx - *Family History Maternal Family History: Family History (Last Reviewed 12/04/18 @ 15:24 by Javon Zapata MD) Mother Cancer Father Cancer Brother HLD (hyperlipidemia) History Items: - - Cervical cancer Paternal Family History: Family History (Last Reviewed 12/04/18 @ 15:24 by Javon Zapata MD) Mother Cancer Father Cancer Brother HLD (hyperlipidemia) History Items: Cancer Lives: Spouse/ Significant Other Smoking Status: Former smoker Tobacco Use: Cigarettes Alcohol: Heavy Drugs: None Review of Systems - Review of Systems General: Reports: Fatigue, Weakness HEENT: Denies: Vision Change, Blurred Vision, Head Aches Cardiovascular: Reports: Palpitations. Denies: Chest Discomfort, Chest Discomfort at Rest, Chest Discomfort with Exertion, Chest Pressure, Chest Tightness, Chest Heaviness, Shortness of Breath, Shortness of Breath with Exertion, Orthopnea, Peripheral Edema, Lightheadedness, Dizziness, Near Syncope Respiratory: Denies: Cough, Shortness of Breath, Wheezing Gastrointestinal: Reports: Diarrhea Genitourinary: Denies: Dysuria, Hematuria Muscoloskeletal: Reports: Myalgias Skin: Denies: Rash Neurological: Denies: Dizziness, Vertigo Objective: Vital Signs Temp Pulse Resp BP Pulse Ox 99.7 F H 101 H 20 H 107/71 95 05/16/19 08:48 05/16/19 08:48 05/16/19 08:48 05/16/19 08:48 05/16/19 08:48 Oxygen Flow Rate (L/min) 2 Oxygen Delivery Method Room Air Weight: 237 lb 10.533 oz Body Mass Index (BMI) 31.1 Intake and Output for Last 24 Hours 05/14/19 05/15/19 05/16/19 23:59 23:59 23:59 Intake Total 9127.77 / 9127.77 4364.20 / 5804.20 2380 / 2380 Output Total 3510 / 3510 3325 / 5300 2775 / 2775 Balance 5617.77 / 5617.77 1039.20 / 504.20 -395 / -395 General: Awake, Alert, Oriented x 3, Cooperative HEENT: Atraumatic, Normocephalic, PERRL, EOMI, Sclera Non Icteric Oral: Moist Mucosa Neck: Supple, - - right IJ hemodialysis cath Lungs: Clear to auscultation Cardiovascular: Irregular Rhythm, No Murmurs, No Rubs, No Gallops Abdomen: Bowel Sounds Present, Soft, Non Tender Extremities: No Cyanosis, No Clubbing, No edema Neurological: No Focal Motor or Sensory Deficit, CN II-XII Intact Psych/Mental Status: Appropriate, Normal Affect 05/14/19 12:40: Ionized Calcium 3.6 L 05/15/19 17:30: Urine Color Yellow, Urine Clarity Cloudy, Urine pH 5.0, Ur Specific [place] 1.020, Urine Protein 100 H, Urine Glucose (UA) 50 H, Urine Ketones 5 H, Urine Occult Blood 250 H, Urine Nitrite Negative, Urine Bilirubin Negative, Urine Urobilinogen Normal, Ur Leukocyte Esterase 100 H, Urine RBC > 100 SEEN, Urine WBC 10-25 SEEN 05/16/19 06:15: WBC 11.2 H, RBC 5.22, Hgb 15.3, Hct 45.2, MCV 86.6, MCH 29.3, MCHC 33.8, Plt Count 191, MPV 11.2, Immature Gran % (Auto) 1.000 H, Neut % (Auto) 67.0, Lymph % (Auto) 18.4 L, [place] % (Auto) 12.1 H, Eos % (Auto) 1.0, Baso % (Auto) 0.5, Absolute Neuts (auto) 7.5, Nucleated RBC % 0 05/16/19 06:15: Sodium 135 L, Potassium 3.4 L, Chloride 100, Carbon Dioxide 25.0, Anion Gap 10, BUN 42 H, Creatinine 3.43 H, Est GFR (MDRD) Af Amer 23 L, Est GFR (MDRD) Non-Af 19 L, BUN/Creatinine Ratio 12.2, Glucose 93, Calcium 8.0 L, Phosphorus 3.3, Magnesium 1.8 Rhythm: EKG: ECHO: Stress Test: Cardiac Cath: PCI: CT Surgery: Holter monitor: EPS: PPM: CXR: Chest CT Scan:
[2019-05-16 13:38] LABS: Thyroid Stim Hormone (TSH) 0.11 uIU/mL (0.358-3.74)
--- NOTE | 2019-05-16 16:31 | PCM.PROGNOTE ---
Patient Problems: Active and Suspected Problems (Last Reviewed 12/04/18 @ 15:24 by Javon Zapata MD) Infectious diarrhea in adult patient (Suspected) Acute renal failure (Acute) Atrial fibrillation (Acute) Objective: Feels better but still has a lot of diarrhea though somewhat better - Physical Exam Vitals/I&O's: Vital Signs Temp Pulse Resp BP Pulse Ox 97.9 F 91 20 H 105/68 95 05/16/19 13:54 05/16/19 15:20 05/16/19 13:54 05/16/19 13:54 05/16/19 13:54 Oxygen Flow Rate (L/min) 2 Oxygen Delivery Method Room Air Weight: 107.8 kg Body Mass Index (BMI) 31.1 Intake and Output for Last 24 Hours 05/14/19 05/15/19 05/16/19 23:59 23:59 23:59 Intake Total 9127.77 / 9127.77 4364.20 / 5804.20 4570 / 4570 Output Total 3510 / 3510 3325 / 5300 2900 / 2900 Balance 5617.77 / 5617.77 1039.20 / 504.20 1670 / 1670 General: Alert, Oriented x3, Cooperative HEENT: Atraumatic, PERRLA, EOMI, Normocephalic Neck: Supple, No JVD, Negative Carotid Bruits Lungs: Clear to auscultation, Normal air movement Cardiovascular: Regular rate, No murmurs Abdomen: Bowel Sounds Present, Soft, Non Tender, Obese Extremities: No edema, Capillary Refill Less than 3 Seconds Skin: No rashes, No breakdown Musculoskeletal: No Tenderness to Palpation of Joints or Extremities Neurological: Cranial nerves II-XII grossly intact Psych/Mental Status: Normal Affect, Appropriate Microbiology Past 72 Hours 05/15/19 17:30 Urine Catheter - Fierro Urine Culture - Preliminary Culture exhibits no growth. 05/13/19 17:44 Blood Culture (Wb) - Anticubital Right Blood Culture - Preliminary No growth in 48 hours. 05/13/19 16:00 Blood Culture (Wb) - Anticubital Left Blood Culture - Preliminary No growth in 48 hours. 05/13/19 19:25 Stool Enteric Bacteriology - Final Campylobacter species 05/14/19 08:00 Stool Stool Occult Blood (ZIYAD) - Final Occult Blood Positive 05/13/19 19:25 Stool C. difficile DNA Amplification - Final Laboratory Results 05/14/19 12:40: Ionized Calcium 3.6 L 05/15/19 17:30: Urine Color Yellow, Urine Clarity Cloudy, Urine pH 5.0, Ur Specific [place] 1.020, Urine Protein 100 H, Urine Glucose (UA) 50 H, Urine Ketones 5 H, Urine Occult Blood 250 H, Urine Nitrite Negative, Urine Bilirubin Negative, Urine Urobilinogen Normal, Ur Leukocyte Esterase 100 H, Urine RBC > 100 SEEN, Urine WBC 10-25 SEEN, Ur Squamous Epith Cells 0-5 SEEN, Urine Bacteria 2+, Urine Mucus 0 SEEN 05/15/19 17:35: POC Glucose 108 05/16/19 01:59: POC Glucose 95 05/16/19 06:15: WBC 11.2 H, RBC 5.22, Hgb 15.3, Hct 45.2, MCV 86.6, MCH 29.3, MCHC 33.8, RDW Std Deviation 41.3, RDW Coeff of [place] 13.1, Plt Count 191, MPV 11.2, Immature Gran % (Auto) 1.000 H, Neut % (Auto) 67.0, Lymph % (Auto) 18.4 L, [place] % (Auto) 12.1 H, Eos % (Auto) 1.0, Baso % (Auto) 0.5, Absolute Neuts (auto) 7.5, Absolute Lymphs (auto) 2.06, Nucleated RBC % 0 05/16/19 06:15: Sodium 135 L, Potassium 3.4 L, Chloride 100, Carbon Dioxide 25.0, Anion Gap 10, BUN 42 H, Creatinine 3.43 H, Estim Creat Clear Calc 24.59, Est GFR (MDRD) Af Amer 23 L, Est GFR (MDRD) Non-Af 19 L, BUN/Creatinine Ratio 12.2, Glucose 93, Calcium 8.0 L, Phosphorus 3.3, Magnesium 1.8 05/16/19 06:15: TSH 0.11 L 05/16/19 06:20: POC Glucose 87 Current Medications Acetaminophen (Tylenol) 650 mg PO Q6H PRN PRN PRN Reason: Pain Score 1-3/Temp > 100.7 F Amiodarone HCl (Cordarone) 200 mg PO DAILY [facility] Last Admin: 05/16/19 10:55 Dose: 200 mg Documented by: Aspirin (Aspirin, Baby) 81 mg PO DAILY@0800 [facility] Last Admin: 05/16/19 07:48 Dose: 81 mg Documented by: Calamine/Phenol (Calmoseptine Ointment) 1 applic TOPICAL BID [facility] Last Admin: 05/16/19 10:56 Dose: 1 appful Documented by: Clopidogrel Bisulfate (Plavix) 75 mg PO DAILY [facility] Last Admin: 05/16/19 10:55 Dose: 75 mg Documented by: Dextrose (D50w Syringe) 0 gm IV X1 PRN; Protocol PRN Reason: Hypoglycemia Enoxaparin Sodium (Lovenox) 100 mg SC DAILY [facility] Last Admin: 05/16/19 10:55 Dose: 100 mg Documented by: Glucagon () 1 mg IM .X1 PRN PRN Reason: Hypoglycemia Ceftriaxone Sodium (Rocephin) 1 gm in 50 mls @ 100 mls/hr IV Q24 [facility] Last Infusion: 05/16/19 11:24 Dose: Infused Documented by: Melatonin (Melatonin) 3 mg PO QHS PRN PRN PRN Reason: INSOMNIA Ondansetron HCl (Zofran) 4 mg IV Q8H PRN PRN PRN Reason: NAUSEA/VOMITING Sodium Chloride () 10 - 40 ml IV UD PRN PRN Reason: SALINE FLUSH Last Admin: 05/15/19 12:35 Dose: 40 ml Documented by: Medical Necessity - Tobacco Use Smoking Status: Former smoker Tobacco Use: Cigarettes Assessment/Plan All Active Problems (Last Reviewed 12/04/18 @ 15:24 by Javon Zapata MD) Acute renal failure (Acute) Atrial fibrillation (Acute) Acute kidney injury?ATN?white multifactorial with fluid depletion hypotension and contrast-induced nephropathy Metabolic acidosis multifactorial with renal failure and diarrhea and lactic acidosis resolved Hyponatremia likely hypovolemic Chronic kidney disease stage III likely with hypertensive nephrosclerosis Baseline creatinine 1.3?1.5 Diarrhea hypotension Leukocytosis Polycythemia Coronary artery disease status post CABG Keep mean arterial blood pressure more than 65. Strict input and output Quantify proteinuria later Sodium improving 135 Avoid nephrotoxins hold dialysis today reevaluate tomorrow dialysis needs will evaluate daily CLIMATOLOGIST needs. Noted the urine analysis from yesterday which showed RBCs but the patient has 0-5 RBCs on admission before the Fierro was placed. Likely the microscopic hematuria is due to Fierro manipulations so we will repeat a UA in 1 to 2 days as the Fierro was removed today.
[2019-05-16 18:49] LABS: Vitamin D 1,25-Dihydroxy 33.3 pg/mL (19.9-79.3)
[2019-05-17] VITALS (10 sets, daily range): BP systolic 103–139; BP diastolic 66–81; PULSE 67–97; RESP 16–18; TEMP 36.5–37.3; O2SAT 94–98
[2019-05-17 04:42] LABS: Absolute Lymphocyte Count 2.39 X10^3/uL (0.83-4.51); Basophil# 0.08 X10^3/uL; Basophil% 0.7 % (0-1); Eosinophil# 0.41 X10^3/uL; Eosinophils% 3.7 % (0-5); Hematocrit 43.4 % (40-54); Lymphocyte # 2.39 X10^3/ul (4.0); Lymphocyte % 21.7 % (19-41); Mean Corp Hgb Conc 34.6 g/dL (32-36); Mean Corpuscular Hgb 29.6 pg (27.0-32.0); Mean Corpuscular Volume 85.6 fL (80-94); Monocyte# 1.04 X10^3/uL; Monocyte% 9.4 % (0-10); NRBC Flagged by Analyzer 0 % (0-5); Neutrophil # 6.97 X10^3/uL (2.7-7.7); Neutrophil % 63.4 % (47-70); Platelet Count 184 K/mm3 (150-450); RBC Distribution Width CV 12.6 % (11.6-14.6); RBC Distribution Width SD 39.3 fl (35.1-43.9); Red Blood Count 5.07 M/mm3 (4.6-6.2)
[2019-05-17 04:49] LABS: Anion Gap 13 (5-15); BUN 44 mg/dL (7-18); BUN/Creat Ratio 18.4 RATIO (10-20); Calcium,Total 7.7 mg/dL (8.5-10.1); Chloride 95 mmol/L (98-107); Creatinine, Serum 2.39 mg/dL (0.70-1.30); EST Glomerular Filtration Rate 29 mL/min (>60); Est Glom Filt Rate - Afr Amer 35 mL/min (>60); Estimated Creatinine Clearance 35.29 ml/min; Glucose 104 mg/dL (74-106); Potassium 3.1 mmol/L (3.5-5.1); Sodium Level 129 mmol/L (136-145)
--- NOTE | 2019-05-17 06:19 | PN_ITS ---
Subjective: The patient was seen and examined at the bedside this morning. Events from the last 24 hours have been reviewed. The patient is currently afebrile, hemodynamically stable and maintaining appropriate oxygen saturations on room air. Sodium was low this morning at 129. Potassium is also low at 3.1. Creatinine is improved to 2.39. Diarrhea has improved. The patient denies the presence of abdominal pain, nausea or vomiting. Objective: The patient's most recent lab work, culture data and imaging studies have all been personally reviewed. Blood cultures have shown no growth to date. Enteric panel was positive for Campylobacter species. Stool occult blood was positive on May 14, 2019. General: Alert, Cooperative, No apparent distress HEENT: Atraumatic, PERRLA, Normocephalic Oral: Moist Mucosa, No Gingival or Mucosal Lesions/ Ulcerations Neck: Supple, No Nodes, Trachea Midline Lungs: No rhonchi, No wheeze, No rales, Diminished Cardiovascular: Normal S1, Normal S2, No murmurs, Irregular Rate Abdomen: Bowel Sounds Present, Soft, Non Tender Extremities: No clubbing, No cyanosis, No edema Skin: No breakdown Musculoskeletal: No Tenderness to Palpation of Joints or Extremities Lymphatic: No Cervical, Supraclavicular, or Inguinal Adenopathy Neurological: Cranial nerves II-XII grossly intact, Neuro grossly intact Psych/Mental Status: Normal Affect, Appropriate Vital Signs Temp Pulse Resp BP Pulse Ox 98.4 F 97 18 139/81 H 97 05/17/19 03:43 05/17/19 03:43 05/17/19 03:43 05/17/19 03:43 05/17/19 03:43 Oxygen Flow Rate (L/min) 2 Oxygen Delivery Method Room Air Weight: 239 lb 3.225 oz Body Mass Index (BMI) 31.1 Intake and Output for Last 24 Hours 05/15/19 05/16/19 05/17/19 23:59 23:59 23:59 Intake Total 4364.20 / 5804.20 7798 / 7798 948 / 948 Output Total 3325 / 5300 4875 / 4875 1200 / 1200 Balance 1039.20 / 504.20 2923 / 2923 -252 / -252 Labs (Last 48 Hours) 05/14/19 05/14/19 05/15/19 12:40 14:35 12:34 WBC RBC Hgb Hct MCV MCH MCHC RDW Std Deviation RDW Coeff of Teet[place] Plt Count MPV Immature Gran % (Auto) Neut % (Auto) Lymph % (Auto) [place] % (Auto) Eos % (Auto) Baso % (Auto) Absolute Neuts (auto) Absolute Lymphs (auto) Nucleated RBC % Sodium Potassium Chloride Carbon Dioxide Anion Gap BUN Creatinine Estim Creat Clear Calc Est GFR (MDRD) Af Amer Est GFR (MDRD) Non-Af BUN/Creatinine Ratio Glucose Calcium Ionized Calcium 3.6 L Phosphorus Magnesium Vit D 1,25-Dihydroxy 33.3 TSH Urine Color Urine Clarity Urine pH Ur Specific [place] Urine Protein Urine Glucose (UA) Urine Ketones Urine Occult Blood Urine Nitrite Urine Bilirubin Urine Urobilinogen Ur Leukocyte Esterase Urine RBC Urine WBC Ur Squamous Epith Cells Urine Bacteria Urine Mucus POC Glucose 114 H 05/15/19 05/15/19 05/16/19 17:30 17:35 01:59 WBC RBC Hgb Hct MCV MCH MCHC RDW Std Deviation RDW Coeff of [place] Plt Count MPV Immature Gran % (Auto) Neut % (Auto) Lymph % (Auto) [place] % (Auto) Eos % (Auto) Baso % (Auto) Absolute Neuts (auto) Absolute Lymphs (auto) Nucleated RBC % Sodium Potassium Chloride Carbon Dioxide Anion Gap BUN Creatinine Estim Creat Clear Calc Est GFR (MDRD) Af Amer Est GFR (MDRD) Non-Af BUN/Creatinine Ratio Glucose Calcium Ionized Calcium Phosphorus Magnesium Vit D 1,25-Dihydroxy TSH Urine Color Yellow Urine Clarity Cloudy Urine pH 5.0 Ur Specific [place] 1.020 Urine Protein 100 H Urine Glucose (UA) 50 H Urine Ketones 5 H Urine Occult Blood 250 H Urine Nitrite Negative Urine Bilirubin Negative Urine Urobilinogen Normal Ur Leukocyte Esterase 100 H Urine RBC > 100 SEEN Urine WBC 10-25 SEEN Ur Squamous Epith Cells 0-5 SEEN Urine Bacteria 2+ Urine Mucus 0 SEEN POC Glucose 108 95 05/16/19 05/16/19 05/16/19 06:15 06:15 06:15 WBC 11.2 H RBC 5.22 Hgb 15.3 Hct 45.2 MCV 86.6 MCH 29.3 MCHC 33.8 RDW Std Deviation 41.3 RDW Coeff of [place] 13.1 Plt Count 191 MPV 11.2 Immature Gran % (Auto) 1.000 H Neut % (Auto) 67.0 Lymph % (Auto) 18.4 L [place] % (Auto) 12.1 H Eos % (Auto) 1.0 Baso % (Auto) 0.5 Absolute Neuts (auto) 7.5 Absolute Lymphs (auto) 2.06 Nucleated RBC % 0 Sodium 135 L Potassium 3.4 L Chloride 100 Carbon Dioxide 25.0 Anion Gap 10 BUN 42 H Creatinine 3.43 H Estim Creat Clear Calc 24.59 Est GFR (MDRD) Af Amer 23 L Est GFR (MDRD) Non-Af 19 L BUN/Creatinine Ratio 12.2 Glucose 93 Calcium 8.0 L Ionized Calcium Phosphorus 3.3 Magnesium 1.8 Vit D 1,25-Dihydroxy TSH 0.11 L Urine Color Urine Clarity Urine pH Ur Specific [place] Urine Protein Urine Glucose (UA) Urine Ketones Urine Occult Blood Urine Nitrite Urine Bilirubin Urine Urobilinogen Ur Leukocyte Esterase Urine RBC Urine WBC Ur Squamous Epith Cells Urine Bacteria Urine Mucus POC Glucose 05/16/19 05/17/19 05/17/19 06:20 04:25 04:25 WBC 11.0 RBC 5.07 Hgb 15.0 Hct 43.4 MCV 85.6 MCH 29.6 MCHC 34.6 RDW Std Deviation 39.3 RDW Coeff of [place] 12.6 Plt Count 184 MPV 11.0 Immature Gran % (Auto) 1.100 H Neut % (Auto) 63.4 Lymph % (Auto) 21.7 [place] % (Auto) 9.4 Eos % (Auto) 3.7 Baso % (Auto) 0.7 Absolute Neuts (auto) 7.0 Absolute Lymphs (auto) 2.39 Nucleated RBC % 0 Sodium 129 L Potassium 3.1 L Chloride 95 L Carbon Dioxide 21.0 Anion Gap 13 BUN 44 H Creatinine 2.39 H Estim Creat Clear Calc 35.29 Est GFR (MDRD) Af Amer 35 L Est GFR (MDRD) Non-Af 29 L BUN/Creatinine Ratio 18.4 Glucose 104 Calcium 7.7 L Ionized Calcium Phosphorus Magnesium Vit D 1,25-Dihydroxy TSH Urine Color Urine Clarity Urine pH Ur Specific [place] Urine Protein Urine Glucose (UA) Urine Ketones Urine Occult Blood Urine Nitrite Urine Bilirubin Urine Urobilinogen Ur Leukocyte Esterase Urine RBC Urine WBC Ur Squamous Epith Cells Urine Bacteria Urine Mucus POC Glucose 87 Microbiology 05/15/19 17:30 Urine Catheter - Fierro Urine Culture - Preliminary Culture exhibits no growth. 11/11/19 17:44 Blood Culture (Wb) - Anticubital Right Blood Culture - Preliminary No growth in 48 hours. 05/13/19 16:00 Blood Culture (Wb) - Anticubital Left Blood Culture - Preliminary No growth in 48 hours. Clinical Impression(s) from Imaging Studies Abdomen CTA 05/13/19 15:59 IMPRESSION: No evidence of superior mesenteric artery occlusion or flow-limiting stenosis. Electronically Signed: Jayme Parekh MD at 16:33 EST Tel , Service support , Abdomen/Pelvis CT 05/13/19 16:53 IMPRESSION: No CT evidence of colitis. Specifically, no areas of colonic wall thickening or adjacent fatty attenuation. No evidence of acute intestinal pathology or acute obstructive uropathy. Electronically Signed: Jayme Parekh MD at 17:19 EST Tel , Service support , Chest X-Ray 05/13/19 17:40 IMPRESSION: Chronic interstitial lung changes without superimposed acute alveolar disease. Electronically Signed: Jayme Parekh MD at 18:05 EST Tel , Service support , Renal Ultrasound 05/14/19 07:16 IMPRESSION: Normal ultrasound of the kidneys and urinary bladder. Electronically Signed: Randy Warner, at 9:10 EST , Service support , Chest X-Ray 05/14/19 12:39 IMPRESSION: Right IJ catheter tip is in the region of the inferior SVC. No pneumothorax. Electronically Signed: Dustin Salcedo, at 14:01 EST Tel , Service support , Medical Necessity - Tobacco Use Smoking Status: Former smoker Tobacco Use: Cigarettes Assessment/Plan All Active Problems (Last Reviewed 12/04/18 @ 15:24 by Javon Zapata MD) Acute renal failure (Acute) Atrial fibrillation (Acute) RECOMMENDATIONS: 1. Continue hemodialysis per nephrology recommendations. 2. Encourage incentive spirometer use and mobilize patient as tolerated. IMPRESSIONS: 1. Acute renal failure Likely multifactorial in etiology. Nephrology is currently following to assist with hemodialysis support. 2. Acute infectious diarrhea secondary to Campylobacter Improving. Continue current supportive measures. 3. Alcohol dependence Stable without signs of acute alcohol withdrawal. 4. Chronic systolic congestive heart failure status post CABG and stents/new onset A. fib Continue current medical management per cardiology recommendations. 5. Obesity/history of tobacco use/GERD/hyperlipidemia/hypertension Complicates care, management, recovery and prognosis. Patient would likely benefit from outpatient pulmonary function test for quantification and clarification of lung function. This note was generated with [employer] dictation software. It may contain incorrect words, spelling, and punctuation that were not noted in checking the note before signing. Code Visit Inpatient E&M: 63283 Subs Hosp L2
--- NOTE | 2019-05-17 07:19 | PN_ITS ---
Patient Problems: Active and Suspected Problems (Last Reviewed 12/04/18 @ 15:24 by Javon Zapata MD) Infectious diarrhea in adult patient (Suspected) Acute renal failure (Acute) Atrial fibrillation (Acute) Subjective: Follow-up on hypotension, Campylobacter infection, JESI: Patient was seen and examined. His bowel movements have decreased. No fevers seen. He was able to tolerate a liquid diet. Denies any abdominal cramps or nausea or vomiting. Objective: Physical exam: General: Alert, Oriented x3, Cooperative, No apparent distress HEENT: Atraumatic, PERRLA, EOMI, Normocephalic Neck: Supple, No JVD, Negative Carotid Bruits Lungs: Clear to auscultation, Normal air movement Cardiovascular: Regular rate, Regular Rhythm, Normal S1, Normal S2 Abdomen: Bowel Sounds Present, Soft, Non-Distended, Tender - epigastric and RUQ tenderness with guarding but no RBT Extremities: No edema Skin: No rashes Musculoskeletal: No Tenderness to Palpation of Joints or Extremities Lymphatic: No Cervical, Supraclavicular, or Inguinal Adenopathy Neurological: Cranial nerves II-XII grossly intact, Neuro grossly intact Psych/Mental Status: Normal Affect, Appropriate Vitals/I&O's: Vital Signs Temp Pulse Resp BP Pulse Ox 98.4 F 97 18 139/81 H 97 05/17/19 03:43 05/17/19 03:43 05/17/19 03:43 05/17/19 03:43 05/17/19 03:43 Oxygen Flow Rate (L/min) 2 Oxygen Delivery Method Room Air Weight: 108.5 kg Body Mass Index (BMI) 31.1 Intake and Output for Last 24 Hours 05/15/19 05/16/19 05/17/19 23:59 23:59 23:59 Intake Total 4364.20 / 5804.20 7798 / 7798 948 / 948 Output Total 3325 / 5300 4875 / 4875 1200 / 1200 Balance 1039.20 / 504.20 2923 / 2923 -252 / -252 Microbiology Past 72 Hours 05/15/19 17:30 Urine Catheter - Fierro Urine Culture - Preliminary Culture exhibits no growth. 05/13/19 17:44 Blood Culture (Wb) - Anticubital Right Blood Culture - Preliminary No growth in 48 hours. 05/13/19 16:00 Blood Culture (Wb) - Anticubital Left Blood Culture - Preliminary No growth in 48 hours. 05/13/19 19:25 Stool Enteric Bacteriology - Final Campylobacter species 05/14/19 08:00 Stool Stool Occult Blood (ZIYAD) - Final Occult Blood Positive Laboratory Results 05/14/19 14:35: Vit D 1,25-Dihydroxy 33.3 05/16/19 06:15: TSH 0.11 L 05/17/19 04:25: WBC 11.0, RBC 5.07, Hgb 15.0, Hct 43.4, MCV 85.6, MCH 29.6, MCHC 34.6, RDW Std Deviation 39.3, RDW Coeff of [place] 12.6, Plt Count 184, MPV 11.0, Immature Gran % (Auto) 1.100 H, Neut % (Auto) 63.4, Lymph % (Auto) 21.7, [place] % (Auto) 9.4, Eos % (Auto) 3.7, Baso % (Auto) 0.7, Absolute Neuts (auto) 7.0, Absolute Lymphs (auto) 2.39, Nucleated RBC % 0 05/17/19 04:25: Sodium 129 L, Potassium 3.1 L, Chloride 95 L, Carbon Dioxide 21.0, Anion Gap 13, BUN 44 H, Creatinine 2.39 H, Estim Creat Clear Calc 35.29, Est GFR (MDRD) Af Amer 35 L, Est GFR (MDRD) Non-Af 29 L, BUN/Creatinine Ratio 18.4, Glucose 104, Calcium 7.7 L Current Medications Acetaminophen (Tylenol) 650 mg PO Q6H PRN PRN PRN Reason: Pain Score 1-3/Temp > 100.7 F Amiodarone HCl (Cordarone) 200 mg PO DAILY [facility] Last Admin: 05/16/19 10:55 Dose: 200 mg Documented by: Aspirin (Aspirin, Baby) 81 mg PO DAILY@0800 [facility] Last Admin: 05/16/19 07:48 Dose: 81 mg Documented by: Calamine/Phenol (Calmoseptine Ointment) 1 applic TOPICAL BID [facility] Last Admin: 05/16/19 21:15 Dose: 1 applicatio Documented by: Clopidogrel Bisulfate (Plavix) 75 mg PO DAILY [facility] Last Admin: 05/16/19 10:55 Dose: 75 mg Documented by: Enoxaparin Sodium (Lovenox) 100 mg SC DAILY [facility] Last Admin: 05/16/19 10:55 Dose: 100 mg Documented by: Ceftriaxone Sodium (Rocephin) 1 gm in 50 mls @ 100 mls/hr IV Q24 [facility] Last Infusion: 05/16/19 11:24 Dose: Infused Documented by: Melatonin (Melatonin) 3 mg PO QHS PRN PRN PRN Reason: INSOMNIA Ondansetron HCl (Zofran) 4 mg IV Q8H PRN PRN PRN Reason: NAUSEA/VOMITING Potassium Chloride (K-Dur) 60 meq PO X1 ONE Stop: 05/17/19 07:19 Sodium Chloride () 10 - 40 ml IV UD PRN PRN Reason: SALINE FLUSH Last Admin: 05/15/19 12:35 Dose: 40 ml Documented by: STROKE Vital Signs/Narrative: Vital Signs Temp Pulse Resp BP Pulse Ox 05/17/19 03:43 98.4 F 97 18 139/81 H 97 Medical Necessity - Tobacco Use Smoking Status: Former smoker Tobacco Use: Cigarettes Assessment/Plan All Active Problems (Last Reviewed 12/04/18 @ 15:24 by Javon Zapata MD) Acute renal failure (Acute) Atrial fibrillation (Acute) 1. JESI, likely prerenal in the setting of acute gastroenteritis, continues to improve Had 2 days of hemodialysis on admission. No more dialysis planned. Creatinine is currently 2.39 down from 3.43 Nephrology following, patient encouraged to continue with liberal oral fluids Repeat BMP in a.m. 2. Acute campylobacter gastroenteritis, completed 3 days of azithromycin We will continue to monitor 3. Hypokalemia, hypomagnesemia, replace, recheck in a.m. 4. Metabolic acidosis secondary to acute kidney injury and acute gastroenteritis, resolved with dialysis 5. New onset atrial fibrillation likely secondary to acute critical state, remains in A. fib, fairly controlled on amiodarone po, will discontinue anticoagulation per cardiology recommendation, cardiology following 6. Lactic acid secondary to hypoxia and dehydration, resolved 7. Acute respiratory insufficiency, resolved, will continue to monitor 8. Leukocytosis likely reactive, no signs of sepsis, resolved 9. Hyponatremia secondary to acute gastroenteritis/JESI, resolving with dialysis 10. Hypertension, Bp is still relatively low Will continue to hold off lisinopril, metoprolol as well as amlodipine Continue to monitor 11. CAD s/p stents, will resume aspirin and metoprolol 12. DVT PPx- Heparin SC Code Visit Inpatient E&M: 63348 Subs Hosp L2
[2019-05-17 08:03] LABS: Free T3 1.9 pg/mL (2.18-3.98); Magnesium 1.3 mg/dL (1.6-2.6); T4 Free Direct 1.26 ng/dL (0.76-1.46)
[2019-05-17] MEDS: Menthol/Lanolin/Calamine/Znox 113 GM Tube 1 APPLIC TOPICAL (08:15)
[2019-05-17] MEDS: Aspirin 81 MG TAB.CHEW PO (08:15)
[2019-05-17] MEDS: Amiodarone 200 MG Tablet PO (08:15)
[2019-05-17] MEDS: Enoxaparin 100 MG/ML Syringe SC (08:15)
[2019-05-17] MEDS: Clopidogrel Bisulfate 75 MG Tablet PO (08:16)
[2019-05-17] MEDS: Ceftriaxone 1 GM/50 ML BAG IV (08:25)
--- NOTE | 2019-05-17 11:12 | CASEMGMT ---
RN CM Note: PT notes reviewed. Pt would like to return home on dc, will await PT/OT notes from today, if recommended, CM can speak with pt re: Home Health vs Outpt therapy. Romero FISHN RN ACM
[2019-05-17 11:19] LABS: Albumin, Serum 2.6 g/dL (3.2-5.0)
--- NOTE | 2019-05-17 12:18 | PCM.PROGNOTE ---
Patient Problems: Active and Suspected Problems (Last Reviewed 12/04/18 @ 15:24 by Javon Zapata MD) Infectious diarrhea in adult patient (Suspected) Acute renal failure (Acute) Atrial fibrillation (Acute) - Physical Exam Vitals/I&O's: Vital Signs Temp Pulse Resp BP Pulse Ox 97.9 F 87 16 111/81 H 98 05/17/19 09:36 05/17/19 12:04 05/17/19 09:36 05/17/19 09:36 05/17/19 09:36 Oxygen Flow Rate (L/min) 2 Oxygen Delivery Method Room Air Weight: 108.5 kg Body Mass Index (BMI) 31.1 Intake and Output for Last 24 Hours 05/15/19 05/16/19 05/17/19 23:59 23:59 23:59 Intake Total 4364.20 / 5804.20 7798 / 7798 998 / 998 Output Total 3325 / 5300 4875 / 4875 1200 / 1200 Balance 1039.20 / 504.20 2923 / 2923 -202 / -202 General: Alert, Oriented x3, Cooperative HEENT: Atraumatic, PERRLA, EOMI, Normocephalic Neck: Supple, No JVD, Negative Carotid Bruits Lungs: Clear to auscultation, Normal air movement Cardiovascular: Regular rate, No murmurs Abdomen: Bowel Sounds Present, Soft, Non Tender, Obese Extremities: No edema, Capillary Refill Less than 3 Seconds Skin: No rashes, No breakdown Musculoskeletal: No Tenderness to Palpation of Joints or Extremities Neurological: Cranial nerves II-XII grossly intact Psych/Mental Status: Normal Affect, Appropriate Microbiology Past 72 Hours 05/15/19 17:30 Urine Catheter - Fierro Urine Culture - Preliminary Culture exhibits no growth. 05/13/19 17:44 Blood Culture (Wb) - Anticubital Right Blood Culture - Preliminary No growth in 48 hours. 05/13/19 16:00 Blood Culture (Wb) - Anticubital Left Blood Culture - Preliminary No growth in 48 hours. 05/13/19 19:25 Stool Enteric Bacteriology - Final Campylobacter species 05/14/19 08:00 Stool Stool Occult Blood (ZIYAD) - Final Occult Blood Positive Laboratory Results 05/14/19 14:35: Vit D 1,25-Dihydroxy 33.3 05/16/19 06:15: TSH 0.11 L 05/17/19 04:25: WBC 11.0, RBC 5.07, Hgb 15.0, Hct 43.4, MCV 85.6, MCH 29.6, MCHC 34.6, RDW Std Deviation 39.3, RDW Coeff of [place] 12.6, Plt Count 184, MPV 11.0, Immature Gran % (Auto) 1.100 H, Neut % (Auto) 63.4, Lymph % (Auto) 21.7, [place] % (Auto) 9.4, Eos % (Auto) 3.7, Baso % (Auto) 0.7, Absolute Neuts (auto) 7.0, Absolute Lymphs (auto) 2.39, Nucleated RBC % 0 05/17/19 04:25: Sodium 129 L, Potassium 3.1 L, Chloride 95 L, Carbon Dioxide 21.0, Anion Gap 13, BUN 44 H, Creatinine 2.39 H, Estim Creat Clear Calc 35.29, Est GFR (MDRD) Af Amer 35 L, Est GFR (MDRD) Non-Af 29 L, BUN/Creatinine Ratio 18.4, Glucose 104, Calcium 7.7 L 05/17/19 04:25: Magnesium 1.3 L, Free T4 1.26, Free T3 pg/dL 1.9 L 05/17/19 04:25: Albumin 2.6 L Current Medications Acetaminophen (Tylenol) 650 mg PO Q6H PRN PRN PRN Reason: Pain Score 1-3/Temp > 100.7 F Amiodarone HCl (Cordarone) 200 mg PO DAILY [facility] Last Admin: 05/17/19 08:15 Dose: 200 mg Documented by: Aspirin (Aspirin, Baby) 81 mg PO DAILY@0800 [facility] Last Admin: 05/17/19 08:15 Dose: 81 mg Documented by: Calamine/Phenol (Calmoseptine Ointment) 1 applic TOPICAL BID [facility] Last Admin: 05/17/19 08:15 Dose: 1 applicatio Documented by: Clopidogrel Bisulfate (Plavix) 75 mg PO DAILY [facility] Last Admin: 05/17/19 08:16 Dose: 75 mg Documented by: Enoxaparin Sodium (Lovenox) 100 mg SC Q12 [facility] Magnesium Sulfate 2 gm/ Sodium (Chloride) 104 mls @ 52 mls/hr IV X1 ONE Stop: 05/17/19 13:14 Last Admin: 05/17/19 11:14 Dose: 52 mls/hr Documented by: Lactobacillus Acidophilus (Acidophilus) 2 tablet PO 4X/DAY [facility] Last Admin: 05/17/19 11:14 Dose: 2 tablet Documented by: Melatonin (Melatonin) 3 mg PO QHS PRN PRN PRN Reason: INSOMNIA Ondansetron HCl (Zofran) 4 mg IV Q8H PRN PRN PRN Reason: NAUSEA/VOMITING Sodium Chloride () 10 - 40 ml IV UD PRN PRN Reason: SALINE FLUSH Last Admin: 05/15/19 12:35 Dose: 40 ml Documented by: Medical Necessity - Tobacco Use Smoking Status: Former smoker Tobacco Use: Cigarettes Assessment/Plan All Active Problems (Last Reviewed 12/04/18 @ 15:24 by Javon Zapata MD) Acute renal failure (Acute) Atrial fibrillation (Acute) Acute kidney injury?ATN?white multifactorial with fluid depletion hypotension and contrast-induced nephropathy Metabolic acidosis multifactorial with renal failure and diarrhea and lactic acidosis resolved Hyponatremia likely hypovolemic Chronic kidney disease stage III likely with hypertensive nephrosclerosis Baseline creatinine 1.3?1.5 Diarrhea hypotension Leukocytosis Polycythemia Coronary artery disease status post CABG Keep mean arterial blood pressure more than 65. Strict input and output Quantify proteinuria later Sodium 129 Scr 2.3 improving remove temporary dialysis catheter. Need to monitor renal function. Diarrhea almost resolved no need for IV fluids. In fact if sodium dropping further we need some fluid restriction considering his hyponatremia and history of heart failure. Avoid nephrotoxins Noted the urine analysis which showed RBCs but the patient has 0-5 RBCs on admission before the Fierro was placed. Likely the microscopic hematuria is due to Fierro manipulations so we will repeat a UA in 1 to 2 days after the Fierro was removed
--- NOTE | 2019-05-17 13:21 | DIALYSIS ---
Right IJ Temporary CVC pulled without complications per Dr. Marquez. Pressure held to site x 10 minutes, stasis achieved, and dressing applied. Verbal report given to JAY Aiken prior to departure.
[2019-05-17] MEDS: Metoprolol(XL)Succ 100 MG Tablet PO (16:47)
--- NOTE | 2019-05-17 17:11 | PN.CARD_ITS ---
Subjectve: Patient seen and evaluated. He had developed atrial fibrillation while in the intensive care unit for dehydration and possible sepsis. He has been transferred to the progressive care unit at this time and stable without any complaints. Objective: Vital Signs Temp Pulse Resp BP Pulse Ox 97.7 F L 97 18 103/67 94 05/17/19 15:34 05/17/19 16:47 05/17/19 15:34 05/17/19 15:34 05/17/19 15:34 Oxygen Flow Rate (L/min) 2 Oxygen Delivery Method Room Air Weight: 239 lb 3.225 oz Body Mass Index (BMI) 31.1 Intake and Output for Last 24 Hours 05/15/19 05/16/19 05/17/19 23:59 23:59 23:59 Intake Total 4364.20 / 5804.20 7798 / 7798 1102 / 1102 Output Total 3325 / 5300 4875 / 4875 1200 / 1200 Balance 1039.20 / 504.20 2923 / 2923 -98 / -98 General: Awake, Alert, Oriented x 3 HEENT: PERRL, EOMI, Sclera Non Icteric Neck: Supple, Good ROM, No Lymph Node Enlargement Lungs: Clear to auscultation Cardiovascular: Irregular Rhythm, Normal S1, Normal S2, No Murmurs, No Rubs, No Gallops Vascular: No Carotid Bruits, Normal Femoral Pulses, Normal Radial Pulses, Normal Dorsalis Pedal Pulse, Normal Posterior Tibial Pulses Abdomen: Bowel Sounds Present, Soft, Non Tender, No HSM, No Organomegaly Extremities: No Cyanosis, No Clubbing, No edema Musculoskeletal: No Erythema Lymphatic: No Lymph Node Enlargement Neurological: No Focal Motor or Sensory Deficit 05/17/19 04:25: WBC 11.0, RBC 5.07, Hgb 15.0, Hct 43.4, MCV 85.6, MCH 29.6, MCHC 34.6, Plt Count 184, MPV 11.0, Immature Gran % (Auto) 1.100 H, Neut % (Auto) 63.4, Lymph % (Auto) 21.7, [place] % (Auto) 9.4, Eos % (Auto) 3.7, Baso % (Auto) 0.7, Absolute Neuts (auto) 7.0, Nucleated RBC % 0 05/17/19 04:25: Sodium 129 L, Potassium 3.1 L, Chloride 95 L, Carbon Dioxide 21.0, Anion Gap 13, BUN 44 H, Creatinine 2.39 H, Est GFR (MDRD) Af Amer 35 L, Est GFR (MDRD) Non-Af 29 L, BUN/Creatinine Ratio 18.4, Glucose 104, Calcium 7.7 L 05/17/19 04:25: Magnesium 1.3 L Rhythm: EKG: ECHO: Stress Test: Cardiac Cath: PCI: CT Surgery: Holter monitor: EPS: PPM: CXR: Chest CT Scan: Medical Necessity - Tobacco Use Smoking Status: Former smoker Tobacco Use: Cigarettes Assessment/Plan 1. Atrial fibrillation * The above appears to be new onset and occurring in the setting of dehydration and possible sepsis. I suspect that this is stress related. * Will recommend restarting the beta-amadou * Short-term amiodarone * Will not anticoagulate at this particular time but will continue to observe. * 2.H/O coronary artery bypass surgery Z95.1 CABG X 4 CANTRELL-LAD, SVG- Ramus, SVG-D1, left radial artery to the RCA bifurcation 12/03/2007 He is status post bypass surgery. He appears to be doing well. And at this time my recommendation is for him to continue medical therapy. I would not recommend that we make any other changes. He appears to have stable angina. 3. Essential (primary) hypertension I10 He does have a history of hypertension which is much better controlled at this particular time on the current medications. The weight loss is certainly also contributed to the above. 4. Ischemic cardiomyopathy I25.5 Plan He does have a history of ischemic cardiomyopathy. His last echocardiogram in 2016 had demonstrated an ejection fraction of 45%. He has had no heart failure symptoms and my recommendation at this time will be for him to remain on the beta-amadou as well as the lisinopril. 5. Pure hypercholesterolemia E78.00 Plan He does have a history of hyperlipidemia his most recent lipid profile demonstrated total cholesterol 153, HDL 44 and LDL of 70. His triglycerides 196. Thank you for allowing me to participate in the care of your patient. Please don't hesitate to call if any issues arise
[2019-05-18] VITALS (7 sets, daily range): BP systolic 106–117; BP diastolic 66–69; PULSE 59–89; RESP 15–16; TEMP 36.6–36.7; O2SAT 95–98
[2019-05-18 07:20] LABS: ALB/GLOB Ratio 0.5 RATIO (0.9-2.4); AST(SGOT) 17 U/L (15-37); Alanine Aminotransfer ALT/SGPT 26 U/L (16-61); Albumin, Serum 2.4 g/dL (3.2-5.0); Alkaline Phosphatase 70 U/L (45-117); Anion Gap 10 (5-15); BUN 41 mg/dL (7-18); BUN/Creat Ratio 22.3 RATIO (10-20); Calcium,Total 7.9 mg/dL (8.5-10.1); Chloride 99 mmol/L (98-107); Creatinine, Serum 1.84 mg/dL (0.70-1.30); EST Glomerular Filtration Rate 40 mL/min (>60); Est Glom Filt Rate - Afr Amer 48 mL/min (>60); Estimated Creatinine Clearance 45.84 ml/min; Globulin 4.5 g/dL (2.2-4.2); Glucose 88 mg/dL (74-106); Magnesium 1.5 mg/dL (1.6-2.6); Potassium 4.4 mmol/L (3.5-5.1); Protein, Total 6.9 g/dL (6.4-8.2); Sodium Level 127 mmol/L (136-145)
--- NOTE | 2019-05-18 07:34 | PN_ITS ---
Subjective: Patient transferred out of the intensive care unit. Patient is reporting good urine output and denies any dysuria. Patient is not having any respiratory complaints at this time. Patient did have his dialysis catheter removed and denies any complications such as hematoma or pain at the insertion site. General: Alert, Oriented x3, Cooperative, No apparent distress, Well developed, Well nourished, - - Speaking in full sentences. HEENT: Atraumatic, PERRLA, EOMI, Normocephalic, - - IJ site is clean, dry and intact. No scleral icterus or injection Oral: Moist Mucosa, No Gingival or Mucosal Lesions/ Ulcerations Neck: Supple, No JVD, No Nodes, Trachea Midline Lungs: Clear to auscultation, Normal air movement, No rhonchi, No wheeze, No rales Cardiovascular: Regular rate, Regular Rhythm, Normal S1, Normal S2, No murmurs, No rub noted, No Gallop Abdomen: Bowel Sounds Present, Soft, Non Tender, Non-Distended, Obese Extremities: No clubbing, No cyanosis, No edema Skin: No rashes, No breakdown Musculoskeletal: No Tenderness to Palpation of Joints or Extremities Lymphatic: No Cervical, Supraclavicular, or Inguinal Adenopathy Neurological: Cranial nerves II-XII grossly intact, Neuro grossly intact, Motor Exam 5/5 strength throughout Psych/Mental Status: Alert and oriented to time, place, person, mood and affect Vital Signs Temp Pulse Resp BP Pulse Ox 36.6 C 78 16 106/66 95 05/18/19 03:55 05/18/19 06:57 05/18/19 03:55 05/18/19 03:55 05/18/19 03:55 Oxygen Flow Rate (L/min) 2 Oxygen Delivery Method Room Air Weight: 108.3 kg Body Mass Index (BMI) 31.1 Intake and Output for Last 24 Hours 05/16/19 05/17/19 05/18/19 23:59 23:59 23:59 Intake Total 7798 / 7798 1932 / 1932 480 / 480 Output Total 4875 / 4875 2320 / 2320 1075 / 1075 Balance 2923 / 2923 -388 / -388 -595 / -595 Labs (Last 48 Hours) 05/14/19 05/16/19 05/17/19 14:35 06:15 04:25 WBC 11.0 RBC 5.07 Hgb 15.0 Hct 43.4 MCV 85.6 MCH 29.6 MCHC 34.6 RDW Std Deviation 39.3 RDW Coeff of [place] 12.6 Plt Count 184 MPV 11.0 Immature Gran % (Auto) 1.100 H Neut % (Auto) 63.4 Lymph % (Auto) 21.7 [place] % (Auto) 9.4 Eos % (Auto) 3.7 Baso % (Auto) 0.7 Absolute Neuts (auto) 7.0 Absolute Lymphs (auto) 2.39 Nucleated RBC % 0 Sodium Potassium Chloride Carbon Dioxide Anion Gap BUN Creatinine Estim Creat Clear Calc Est GFR (MDRD) Af Amer Est GFR (MDRD) Non-Af BUN/Creatinine Ratio Glucose Calcium Magnesium Total Bilirubin AST ALT Alkaline Phosphatase Total Protein Albumin Globulin Albumin/Globulin Ratio Vit D 1,25-Dihydroxy 33.3 TSH 0.11 L Free T4 Free T3 pg/dL 05/17/19 05/17/19 05/17/19 04:25 04:25 04:25 WBC RBC Hgb Hct MCV MCH MCHC RDW Std Deviation RDW Coeff of [place] Plt Count MPV Immature Gran % (Auto) Neut % (Auto) Lymph % (Auto) [place] % (Auto) Eos % (Auto) Baso % (Auto) Absolute Neuts (auto) Absolute Lymphs (auto) Nucleated RBC % Sodium 129 L Potassium 3.1 L Chloride 95 L Carbon Dioxide 21.0 Anion Gap 13 BUN 44 H Creatinine 2.39 H Estim Creat Clear Calc 35.29 Est GFR (MDRD) Af Amer 35 L Est GFR (MDRD) Non-Af 29 L BUN/Creatinine Ratio 18.4 Glucose 104 Calcium 7.7 L Magnesium 1.3 L Total Bilirubin AST ALT Alkaline Phosphatase Total Protein Albumin 2.6 L Globulin Albumin/Globulin Ratio Vit D 1,25-Dihydroxy TSH Free T4 1.26 Free T3 pg/dL 1.9 L 05/18/19 06:28 WBC RBC Hgb Hct MCV MCH MCHC RDW Std Deviation RDW Coeff of [place] Plt Count MPV Immature Gran % (Auto) Neut % (Auto) Lymph % (Auto) [place] % (Auto) Eos % (Auto) Baso % (Auto) Absolute Neuts (auto) Absolute Lymphs (auto) Nucleated RBC % Sodium 127 L Potassium 4.4 Chloride 99 Carbon Dioxide 18.0 L Anion Gap 10 BUN 41 H Creatinine 1.84 H Estim Creat Clear Calc 45.84 Est GFR (MDRD) Af Amer 48 L Est GFR (MDRD) Non-Af 40 L BUN/Creatinine Ratio 22.3 H Glucose 88 Calcium 7.9 L Magnesium 1.5 L Total Bilirubin 0.40 AST 17 ALT 26 Alkaline Phosphatase 70 Total Protein 6.9 Albumin 2.4 L Globulin 4.5 H Albumin/Globulin Ratio 0.5 L Vit D 1,25-Dihydroxy TSH Free T4 Free T3 pg/dL Microbiology 05/15/19 17:30 Urine Catheter - Fierro Urine Culture - Preliminary Culture exhibits no growth. 05/13/19 17:44 Blood Culture (Wb) - Anticubital Right Blood Culture - Preliminary No growth in 48 hours. 05/13/19 16:00 Blood Culture (Wb) - Anticubital Left Blood Culture - Preliminary No growth in 48 hours. Medical Necessity - Tobacco Use Smoking Status: Former smoker Tobacco Use: Cigarettes Assessment/Plan All Active Problems (Last Reviewed 12/04/18 @ 15:24 by Javon Zapata MD) Acute renal failure (Acute) Atrial fibrillation (Acute) RECOMMENDATIONS: 1. Encourage p.o. fluid intake 2. Walking oximetry prior to discharge 3. Hemodynamically stable on room air. Will sign off from a critical care perspective IMPRESSIONS: 1. Acute renal failure Likely multifactorial, but resolving on its own. Hemodialysis catheter has been removed. Patient with some hyponatremia, but appears to be tolerating this well. Hypokalemia has been addressed. Currently hemodynamically stable on room air. Will sign off from a critical care perspective. 2. Acute infectious diarrhea secondary to Campylobacter Patient is describing possible exposure to raw chicken in the last week. No signs or symptoms of bacteremia at this time. Patient continues to report improvement in diarrheal output. 3. Anion gap and non-anion gap metabolic acidosis Resolved. Patient with significant acidosis on presentation. Renal function is improving 4. Alcohol dependence Patient does admit to 3-4 vodka drinks per night. Patient is on the CIWA protocol, but does not report a history of withdrawal symptoms in the past. Patient with no signs of withdrawal after 48 hours, so CIWA protocol was discontinued 5. Chronic systolic congestive heart failure status post CABG and stents/new onset A. fib Patient appears to be doing well at this time. No systemic anticoagulation at this time, but is taking amiodarone. 6. Obesity/history of tobacco use/GERD/hyperlipidemia/hypertension Complicates care, management, recovery and prognosis. Patient would likely benefit from outpatient pulmonary function test for quantification and clarification of lung function. Code Visit Inpatient E&M: 87841 Subs Hosp L2
[2019-05-18] MEDS: Metoprolol(XL)Succ 100 MG Tablet PO (09:11)
[2019-05-18] MEDS: Aspirin 81 MG TAB.CHEW PO (09:12)
[2019-05-18] MEDS: Amiodarone 200 MG Tablet PO (09:12)
[2019-05-18] MEDS: Clopidogrel Bisulfate 75 MG Tablet PO (09:12)
[2019-05-18] MEDS: Menthol/Lanolin/Calamine/Znox 113 GM Tube 1 APPLIC TOPICAL (09:13)
--- NOTE | 2019-05-18 10:28 | DCINST_ITS ---
- Discharge Diagnoses Current Active Problems: Current Active and Chronic Problems (Last Reviewed 12/04/18 @ 15:24 by Javon Zapata MD) Acute renal failure (Acute) Atrial fibrillation (Acute) Reason(s) for Visit for Discharge Instructions: Abdominal pain, acute kidney injury You will use the following diet at home:: Cardiac Your food should be the consistency of: Regular Your liquids should be the consistency of: Regular/Thin Discharge Activity: Return to Normal Activity Additional Instructions: Continue to hydrate yourself. Take note of changes in your medications. Take your BP every day. Let your physician know if you are persistently above 140/90. Follow-up with your primary care doctor and Dr. Zapata within 2 weeks. Follow-up with Dr. Marquez, nephrology within 1 week for repeat blood work Allergies/Adverse Reactions: Allergies No Known Allergies Allergy (Verified 05/13/19 15:46) Medications to take at Discharge Aspirin [Aspirin, Baby] 81 mg PO DAILY@0800 04/29/13 nitroglycerin 0.4 mg sublingual tablet 0.4 mg SUBLINGUAL Q5M PRN #25 tab 11/16/17 metoprolol succinate ER 100 mg tablet,extended release 24 hr 100 mg PO DAILY #90 tab 05/11/18 clopidogrel 75 mg tablet 75 mg PO DAILY #90 tab 08/02/18 pantoprazole 40 mg tablet,delayed release 40 mg PO DAILY #90 tab 11/05/18 atorvastatin 80 mg tablet 80 mg PO QHS #90 tab 12/04/18 Acetaminophen [Tylenol Tablet] 650 mg PO Q6H PRN PRN tab 05/18/19 Amiodarone HCl [Cordarone] 200 mg PO DAILY #30 tab 05/18/19 Lactobacillus Acidophilus [Acidophilus] 2 tab PO 4X/DAY #90 tab 05/18/19 The following prescriptions were given: Lactobacillus Acidophilus [Acidophilus] 2 tab PO 4X/DAY #90 tab Transmission Status: Pending to [facility] Amiodarone HCl [Cordarone] 200 mg PO DAILY #30 tab Transmission Status: Pending to [facility] Primary Care Physician: Doroteo Durham MD [Primary Care Provider] - Please follow up with your Primary Care Physician in: within 1-2 weeks Test Results: Test results from this visit will be discussed in further detail at your follow- up appointment, if applicable. Please Follow Up With: Sammy Marquez MD When: within 1 week Please Follow Up With: Javon Zapata MD When: within 1-2 weeks Proposed Discharge Date: 05/18/19
--- NOTE | 2019-05-18 10:34 | DS.PCM_ITS ---
Discharge Date and Diagnosis Date of Admission: 05/13/19 Date of Discharge: 05/18/19 - Primary Discharge Diagnosis Active and Suspected Problems (Last Reviewed 12/04/18 @ 15:24 by Javon Zapata MD) Acute kidney injury Acute Campylobacter gastroenteritis Hypokalemia Hypomagnesemia Acute metabolic acidosis New onset atrial fibrillation Elevated lactic acid Hypoxia Leukocytosis Hyponatremia - Secondary Discharge Diagnosis Chronic Problems (Last Reviewed 12/04/18 @ 15:24 by Javon Zapata MD) H/O coronary artery bypass surgery (Chronic 12/03/07) CABG X 4 CANTRELL-LAD, SVG- Ramus, SVG-D1, left radial artery to the RCA bifurcation 12/03/2007 Atherosclerosis of coronary artery bypass graft without angina pectoris (Chronic) PCI-SAVI-Mid LAD 06/06/08; VDH-DWX-Pjymth and Prox RCA 01/11/2016 CABG X 4 CANTRELL-LAD, SVG- Ramus, SVG-D1, left radial artery to the RCA bifurcation 12/03/2007 Essential (primary) hypertension (Chronic) History of inferior wall myocardial infarction (Chronic 2015) Ischemic cardiomyopathy (Chronic) History of coronary artery stent placement (Chronic 01/11/16) PCI-SAVI-Mid LAD 06/06/08; PIU-ISC-Yemw RCA w/ 3.5 x 28 mm Vision and BMS- Distal RCA w/ 4.5 x 28 mm Rebel Stent 01/11/2016 Paroxysmal ventricular tachycardia (Chronic) Atherosclerotic heart disease of [place] coronary artery with other forms of angina pectoris (Chronic) HLD (hyperlipidemia) (Chronic) Hospital Course and Treatment Imaging Results: Clinical Impression(s) from Imaging Studies Abdomen CTA 05/13/19 15:59 IMPRESSION: No evidence of superior mesenteric artery occlusion or flow-limiting stenosis. Electronically Signed: Jayme Parekh MD at 16:33 EST Tel , Service support , Abdomen/Pelvis CT 05/13/19 16:53 IMPRESSION: No CT evidence of colitis. Specifically, no areas of colonic wall thickening or adjacent fatty attenuation. No evidence of acute intestinal pathology or acute obstructive uropathy. Electronically Signed: Jayme Parekh MD at 17:19 EST Tel , Service support , Chest X-Ray 05/13/19 17:40 IMPRESSION: Chronic interstitial lung changes without superimposed acute alveolar disease. Electronically Signed: Jayme Parekh MD at 18:05 EST Tel , Service support , Renal Ultrasound 05/14/19 07:16 IMPRESSION: Normal ultrasound of the kidneys and urinary bladder. Electronically Signed: Randy Warner, at 9:10 EST , Service support , Chest X-Ray 05/14/19 12:39 IMPRESSION: Right IJ catheter tip is in the region of the inferior SVC. No pneumothorax. Electronically Signed: Dustin Salcedo, at 14:01 EST Tel , Service support , Critical care Nephrology Procedures: 2-D Echocardiogram, - - Dialysis catheter placement Summary of Care Provided: The patient is a 63 year old M past medical history of CAD status post CABG and stents, hypertension, hyperlipidemia who comes in with almost a one-week history of nausea, vomiting, diarrhea and unable to keep food down. His baseline creatinine was around 1.3-1.4. He had complained of upper abdominal discomfort. Was admitted with a creatinine of 15.70, BUN was 106. He was found to be severely dehydrated. Patient was admitted to the ICU, started on IV fluids. He had low urine output of about 60 mils in 5 hours. Was also started on bicarbonate drip for bicarb of 12. Nephrology was consulted. Recommended aggre ssive fluid resuscitation. Patient was later reevaluated and temporary hemodialysis catheter was placed. Patient received dialysis on 05/14 and05/15. His creatinine improved and he will was managed off dialysis with improvement in his urine output. He was later on transferred out of the ICU and monitored overnight in the PCU with no acute event. Stool studies were negative for acute C. difficile positive for acute Campylobacter. Patient received IV azithromycin for 3 days. His diarrhea had improved but was not gone back to normal. He was encouraged to maintain adequate oral intake. His blood pressure was relatively low in the ICU requiring IV fluid boluses. He was managed off his blood pressure medication. Patient had also developed A. fib with RVR, to his first night in ICU and was managed on IV amiodarone. Cardiology was consulted on him. He was later transitioned to oral amiodarone. He was recommended to be off anticoagulation. At the time of discharge, patient was still in A. fib with RVR. He follow-up with cardiology in 2 weeks. Subjective: On the day of discharge, patient was seen and examined. He denied any new complaints. He felt improved. He had 2 bowel movements since midnight. Review of systems was negative. Objective: Physical exam: General: Alert, Oriented x3, Cooperative, No apparent distress HEENT: Atraumatic, PERRLA, EOMI, Normocephalic Neck: Supple, No JVD, Negative Carotid Bruits Lungs: Clear to auscultation, Normal air movement Cardiovascular: Regular rate, Regular Rhythm, Normal S1, Normal S2 Abdomen: Bowel Sounds Present, Soft, Non-Distended, Tender - epigastric and RUQ tenderness with guarding but no RBT Extremities: No edema Skin: No rashes Musculoskeletal: No Tenderness to Palpation of Joints or Extremities Lymphatic: No Cervical, Supraclavicular, or Inguinal Adenopathy Neurological: Cranial nerves II-XII grossly intact, Neuro grossly intact Psych/Mental Status: Normal Affect, Appropriate - Physical Exam Vitals/I&O's: Vital Signs Temp Pulse Resp BP Pulse Ox 98 F 89 15 117/69 98 05/18/19 09:00 05/18/19 09:11 05/18/19 09:00 05/18/19 09:11 05/18/19 09:00 Oxygen Flow Rate (L/min) 2 Oxygen Delivery Method Room Air Weight: 108.3 kg Body Mass Index (BMI) 31.1 Intake and Output for Last 24 Hours 05/16/19 05/17/19 05/18/19 23:59 23:59 23:59 Intake Total 7798 / 7798 1932 / 1932 480 / 480 Output Total 4875 / 4875 2320 / 2320 1075 / 1075 Balance 2923 / 2923 -388 / -388 -595 / -595 Microbiology Past 72 Hours 05/15/19 17:30 Urine Catheter - Fierro Urine Culture - Final Culture exhibits no growth. 05/13/19 17:44 Blood Culture (Wb) - Anticubital Right Blood Culture - Preliminary No growth in 48 hours. 05/13/19 16:00 Blood Culture (Wb) - Anticubital Left Blood Culture - Preliminary No growth in 48 hours. Laboratory Results 05/17/19 04:25: Albumin 2.6 L 05/18/19 06:28: Sodium 127 L, Potassium 4.4, Chloride 99, Carbon Dioxide 18.0 L, Anion Gap 10, BUN 41 H, Creatinine 1.84 H, Estim Creat Clear Calc 45.84, Est GFR (MDRD) Af Amer 48 L, Est GFR (MDRD) Non-Af 40 L, BUN/Creatinine Ratio 22.3 H, Glucose 88, Calcium 7.9 L, Magnesium 1.5 L, Total Bilirubin 0.40, AST 17, ALT 26, Alkaline Phosphatase 70, Total Protein 6.9, Albumin 2.4 L, Globulin 4.5 H, Albumin/Globulin Ratio 0.5 L Current Medications Acetaminophen (Tylenol) 650 mg PO Q6H PRN PRN PRN Reason: Pain Score 1-3/Temp > 100.7 F Amiodarone HCl (Cordarone) 200 mg PO DAILY ON LICENSE OF [facility] Last Admin: 05/18/19 09:12 Dose: 200 mg Documented by: Aspirin (Aspirin, Baby) 81 mg PO DAILY@0800 ON LICENSE OF [facility] Last Admin: 05/18/19 09:12 Dose: 81 mg Documented by: Calamine/Phenol (Calmoseptine Ointment) 1 applic TOPICAL BID ON LICENSE OF [facility] Last Admin: 05/18/19 09:13 Dose: 1 applicatio Documented by: Clopidogrel Bisulfate (Plavix) 75 mg PO DAILY ON LICENSE OF [facility] Last Admin: 05/18/19 09:12 Dose: 75 mg Documented by: Lactobacillus Acidophilus (Acidophilus) 2 tablet PO 4X/DAY ON LICENSE OF [facility] Last Admin: 05/18/19 09:12 Dose: 2 tablet Documented by: Melatonin (Melatonin) 3 mg PO QHS PRN PRN PRN Reason: INSOMNIA Metoprolol Succinate (Toprol Xl (Beta Azeem)) 100 mg PO DAILY ON LICENSE OF [facility] Last Admin: 05/18/19 09:11 Dose: 100 mg Documented by: Ondansetron HCl (Zofran) 4 mg IV Q8H PRN PRN PRN Reason: NAUSEA/VOMITING Sodium Chloride () 10 - 40 ml IV UD PRN PRN Reason: SALINE FLUSH Last Admin: 05/15/19 12:35 Dose: 40 ml Documented by: Discharge Diet: Low fat/ Low Cholesterol, 2000 mg Sodium Diet Discharge Activity: Return to Normal Activity Home Medications: Medications to take at Discharge Aspirin [Aspirin, Baby] 81 mg PO DAILY@0800 04/29/13 nitroglycerin 0.4 mg sublingual tablet 0.4 mg SUBLINGUAL Q5M PRN #25 tab 11/16/17 metoprolol succinate ER 100 mg tablet,extended release 24 hr 100 mg PO DAILY #90 tab 05/11/18 clopidogrel 75 mg tablet 75 mg PO DAILY #90 tab 08/02/18 pantoprazole 40 mg tablet,delayed release 40 mg PO DAILY #90 tab 11/05/18 atorvastatin 80 mg tablet 80 mg PO QHS #90 tab 12/04/18 Acetaminophen [Tylenol Tablet] 650 mg PO Q6H PRN PRN tab 05/18/19 Amiodarone HCl [Cordarone] 200 mg PO DAILY #30 tab 05/18/19 Lactobacillus Acidophilus [Acidophilus] 2 tab PO 4X/DAY #90 tab 05/18/19 Following Prescrptions Were Given to Patient: Lactobacillus Acidophilus [Acidophilus] 2 tab PO 4X/DAY #90 tab Transmission Status: Received by [facility] Amiodarone HCl [Cordarone] 200 mg PO DAILY #30 tab Transmission Status: Received by [facility] Primary Care Physician: Doroteo Durham MD [Primary Care Provider] - Please follow up with your Primary Care Physician in: within 1-2 weeks Please Follow Up With: Sammy Marquez MD When: within 1 week Please Follow Up With: Javon Zapata MD When: within 1-2 weeks Disposition: Home Minutes spent on discharge:: 45 Patient Condition:: Stable Medical Necessity - Tobacco Use Smoking Status: Former smoker Tobacco Use: Cigarettes Meaningful Use Info Meaningful Use Diagnoses (Choose all that apply): None applicable Code Visit Inpatient E&M: 46674 Disch Hosp
== END 2019-05-18 12:07 | disposition home or self-care (01) | DRG 371 ==
LOC: ED 16:21 → ICU 05-14 08:59 → PCU 05-17 11:50
PROVIDERS: Internal Medicine; Internal Medicine Critical Care Medicine; Admitting Provider Internal Medicine; Emergency Provider Emergency Medicine; Family Provider Family Medicine; PCP Family Medicine; Referring Provider Internal Medicine; Visit Provider Internal Medicine
DX: A04.5 Campylobacter enteritis (principal); N17.0 Acute kidney failure with tubular necrosis; E87.1 Hypo-osmolality and hyponatremia; E87.2 Acidosis; I50.22 Chronic systolic (congestive) heart failure; I13.0 Hypertensive heart and chronic kidney disease with heart failure and stage 1 through stage 4 chronic kidney disease, or unspecified chronic kidney disease; E87.6 Hypokalemia; E83.42 Hypomagnesemia; I48.91 Unspecified atrial fibrillation; R09.02 Hypoxemia; I25.5 Ischemic cardiomyopathy; I25.10 Atherosclerotic heart disease of native coronary artery without angina pectoris; E78.5 Hyperlipidemia, unspecified; Z68.31 Body mass index [BMI] 31.0-31.9, adult; E86.0 Dehydration; I25.2 Old myocardial infarction; Z95.5 Presence of coronary angioplasty implant and graft; Z95.1 Presence of aortocoronary bypass graft; Z87.891 Personal history of nicotine dependence; E66.9 Obesity, unspecified; N18.3 Chronic kidney disease, stage 3 (moderate)
CPT/HCPCS: 36415; 71045; 74175; 74176; 76770; 80048; 80053; 81001; 82040; 82274; 82330; 82436; 82570; 82652; 82803; 82962; 83605; 83690; 83735; 83930; 83935; 83970; 84100; 84300; 84436; 84439; 84443; 84481; 84484; 85025; 85610; 85730; 86706; 87040; 87086; 87340; 87493; 87506; 90937; 93005; 97161; 97530; 97803; 99284; J7030; J7040; J7120; Q9967; A4216; C1752; G0257; J0610; J2405

== ENCOUNTER → 2019-05-29 09:33 | Outpatient (CLI) | payer OTHER, MEDICARE, SELFPAY ==
[2019-05-20 12:01] VITALS: BMI 30.3
[2019-05-29 12:57] LABS: ALB/GLOB Ratio 0.7 RATIO (0.9-2.4); AST(SGOT) 18 U/L (15-37); Alanine Aminotransfer ALT/SGPT 51 U/L (16-61); Albumin, Serum 3.3 g/dL (3.2-5.0); Alkaline Phosphatase 93 U/L (45-117); Anion Gap 10 (5-15); BUN 31 mg/dL (7-18); BUN/Creat Ratio 19.7 RATIO (10-20); Chloride 111 mmol/L (98-107); Cholesterol 166 mg/dL (200); Creatinine, Serum 1.57 mg/dL (0.70-1.30); EST Glomerular Filtration Rate 47 mL/min (>60); Est Glom Filt Rate - Afr Amer 57 mL/min (>60); Globulin 4.6 g/dL (2.2-4.2); Glucose 87 mg/dL (74-106); High Density Lipoprotein 50 mg/dL; Potassium 4.1 mmol/L (3.5-5.1); Protein, Total 7.9 g/dL (6.4-8.2); Sodium Level 141 mmol/L (136-145); Triglycerides 146 mg/dL; Very Low Density Lipoprotein 29 mg/dL (5-40)
[2019-05-29 13:01] LABS: AST(SGOT) 19 U/L (15-37); Alanine Aminotransfer ALT/SGPT 52 U/L (16-61); Albumin, Serum 3.4 g/dL (3.2-5.0); Alkaline Phosphatase 94 U/L (45-117); Bilirubin, Direct 0.13 mg/dL (0.00-0.30); Globulin 4.5 g/dL (2.2-4.2); Protein, Total 7.9 g/dL (6.4-8.2)
== END ==
PROVIDERS: Physician Assistant Medical; Family Provider Family Medicine; PCP Family Medicine; Referring Provider Family Medicine; Visit Provider Family Medicine
DX: Z00.00 Encounter for general adult medical examination without abnormal findings (principal); E87.1 Hypo-osmolality and hyponatremia
CPT/HCPCS: 36415; 80053; 80061; 80076

== ENCOUNTER → 2021-03-18 09:06 | Outpatient (CLI) | payer OTHER, MEDICARE, SELFPAY ==
[2021-03-18 10:55] LABS: AST(SGOT) 26 U/L (15-37); Alanine Aminotransfer ALT/SGPT 58 U/L (16-61); Albumin, Serum 3.1 g/dL (3.2-5.0); Alkaline Phosphatase 106 U/L (45-117); Anion Gap 6 (5-15); BUN 19 mg/dL (7-18); BUN/Creat Ratio 13.6 RATIO (10-20); Bilirubin, Direct 0.14 mg/dL (0.00-0.30); Calcium,Total 8.9 mg/dL (8.5-10.1); Chloride 106 mmol/L (98-107); Cholesterol 175 mg/dL (200); EST Glomerular Filtration Rate 54 mL/min (>60); Est Glom Filt Rate - Afr Amer 65 mL/min (>60); Globulin 4.6 g/dL (2.2-4.2); Glucose 98 mg/dL (74-106); High Density Lipoprotein 52 mg/dL; Potassium 3.6 mmol/L (3.5-5.1); Protein, Total 7.7 g/dL (6.4-8.2); Sodium Level 138 mmol/L (136-145); Triglycerides 187 mg/dL; Very Low Density Lipoprotein 37 mg/dL (5-40)
[2021-03-18 11:06] LABS: Microalbumin,Random Urine 11.5 mg/L (NO RANGE EST.)
== END ==
PROVIDERS: PCP Family Medicine; Referring Provider Internal Medicine Cardiovascular Disease; Visit Provider Internal Medicine Cardiovascular Disease
DX: I10 Essential (primary) hypertension (principal); E78.00 Pure hypercholesterolemia, unspecified; I25.5 Ischemic cardiomyopathy; Z95.1 Presence of aortocoronary bypass graft
CPT/HCPCS: 36415; 80048; 80061; 80076; 82043

== ENCOUNTER → 2021-05-12 15:48 | Outpatient (CLI) | payer OTHER, MEDICARE, SELFPAY ==
[2021-05-12 18:08] LABS: Anion Gap 7 (5-15); BUN 19 mg/dL (7-18); BUN/Creat Ratio 14.2 RATIO (10-20); Calcium,Total 9.3 mg/dL (8.5-10.1); Chloride 105 mmol/L (98-107); Creatinine, Serum 1.34 mg/dL (0.70-1.30); EST Glomerular Filtration Rate 57 mL/min (>60); Est Glom Filt Rate - Afr Amer 68 mL/min (>60); Glucose 80 mg/dL (74-106); Potassium 3.8 mmol/L (3.5-5.1); Sodium Level 139 mmol/L (136-145)
== END ==
PROVIDERS: PCP Family Medicine; Referring Provider Family Medicine; Visit Provider Family Medicine
DX: I10 Essential (primary) hypertension (principal)
CPT/HCPCS: 36415; 80048

== ENCOUNTER → 2021-11-12 | Outpatient (CLI) | payer OTHER, MEDICARE, SELFPAY ==
[2021-11-12 10:46] LABS: Anion Gap 7 (5-15); BUN 24 mg/dL (7-18); BUN/Creat Ratio 15.4 RATIO (10-20); Calcium,Total 9.2 mg/dL (8.5-10.1); Chloride 108 mmol/L (98-107); Cholesterol 157 mg/dL (200); Creatinine, Serum 1.56 mg/dL (0.70-1.30); EST Glomerular Filtration Rate 47 mL/min (>60); Est Glom Filt Rate - Afr Amer 57 mL/min (>60); Glucose 109 mg/dL (74-106); High Density Lipoprotein 52 mg/dL; PSA,Total - Annual Screen 0.65 ng/mL (0.00-4.00); Potassium 3.8 mmol/L (3.5-5.1); Sodium Level 139 mmol/L (136-145); Triglycerides 106 mg/dL; Very Low Density Lipoprotein 21 mg/dL (5-40)
== END | disposition home or self-care (01) ==
LOC: MTLAB 09:26
PROVIDERS: PCP Family Medicine; Referring Provider Family Medicine; Visit Provider Family Medicine
DX: Z00.00 Encounter for general adult medical examination without abnormal findings (principal); I10 Essential (primary) hypertension
CPT/HCPCS: 36415; 80048; 80061; 84153; G0103

== ENCOUNTER 2022-05-20 09:19 | Outpatient (CLI) | payer OTHER, MEDICARE, SELFPAY ==
[2022-05-20 12:59] LABS: Anion Gap 8 (5-15); BUN 23 mg/dL (7-18); BUN/Creat Ratio 17.4 RATIO (10-20); Calcium,Total 9.1 mg/dL (8.5-10.1); Chloride 106 mmol/L (98-107); Cholesterol 159 mg/dL (200); Creatinine, Serum 1.32 mg/dL (0.70-1.30); EST Glomerular Filtration Rate 57 mL/min (>60); Est Glom Filt Rate - Afr Amer 69 mL/min (>60); Glucose 107 mg/dL (74-106); High Density Lipoprotein 64 mg/dL; Potassium 4.3 mmol/L (3.5-5.1); Sodium Level 138 mmol/L (136-145); Triglycerides 74 mg/dL; Very Low Density Lipoprotein 15 mg/dL (5-40)
== END 2022-05-20 23:59 | disposition home or self-care (01) ==
LOC: MTLAB 09:21
PROVIDERS: PCP Family Medicine; Referring Provider Family Medicine; Visit Provider Family Medicine
DX: N28.9 Disorder of kidney and ureter, unspecified (principal); I10 Essential (primary) hypertension
CPT/HCPCS: 36415; 80048; 80061

== ENCOUNTER → 2022-11-25 | Outpatient (CLI) | payer OTHER, MEDICARE, SELFPAY ==
[2022-11-25 10:52] LABS: ALB/GLOB Ratio 0.7 RATIO (0.9-2.4); AST(SGOT) 21 U/L (15-37); Alanine Aminotransfer ALT/SGPT 32 U/L (16-61); Albumin, Serum 3.2 g/dL (3.2-5.0); Alkaline Phosphatase 101 U/L (45-117); Anion Gap 7 (5-15); BUN 20 mg/dL (7-18); BUN/Creat Ratio 15.3 RATIO (10-20); Calcium,Total 9.2 mg/dL (8.5-10.1); Chloride 106 mmol/L (98-107); Cholesterol 142 mg/dL (200); Creatinine, Serum 1.31 mg/dL (0.70-1.30); EST Glomerular Filtration Rate 58 mL/min (>60); Est Glom Filt Rate - Afr Amer 70 mL/min (>60); Globulin 4.3 g/dL (2.2-4.2); Glucose 105 mg/dL (74-106); High Density Lipoprotein 51 mg/dL; Potassium 4.2 mmol/L (3.5-5.1); Protein, Total 7.5 g/dL (6.4-8.2); Sodium Level 138 mmol/L (136-145); Triglycerides 78 mg/dL; Very Low Density Lipoprotein 16 mg/dL (5-40)
== END | disposition home or self-care (01) ==
LOC: MTLAB 08:49
PROVIDERS: PCP Family Medicine; Referring Provider Family Medicine; Visit Provider Family Medicine
DX: I10 Essential (primary) hypertension (principal); I25.10 Atherosclerotic heart disease of native coronary artery without angina pectoris
CPT/HCPCS: 36415; 80053; 80061

== ENCOUNTER → 2022-11-30 | Outpatient (CLI) | payer MEDICARE, OTHER, SELFPAY ==
--- NOTE | 2022-11-30 08:46 | ECHOD_ITS ---
Reason For Study: CAD/ASHD Procedure This was a 2D Doppler, Color Flow transthoracic echocardiogram. Exam performed in department. Left Ventricle Normal LV size. The estimated ejection fraction is 50 %. Stage 2 diastolic dysfunction. Post operative septal motion. Mid-Lateral : Hypokinetic. Right Ventricle Normal RV size. Normal systolic function. Atria Normal left atrium. Normal right atrium. Mitral Valve Normal mitral valve. Tricuspid Valve Normal tricuspid valve. Aortic Valve Trisinus/trileaflet aortic valve. Pulmonic Valve Normal pulmonic valve. Trivial pulmonic valve insufficiency. Great Vessels Normal aortic root. The pulmonary artery is normal size. Normal inferior vena cava. Pericardium/Pleural No pericardial effusion. MMode/2D Measurements & Calculations LVIDd: 5.4 cm IVSd: 1.1 cm Ao root diam: 3.5 cm LVIDs: 4.2 cm LVPWd: 1.4 cm FS: 23.0 % LAV(MOD-bp): 57.3 ml LVAd ap4: 30.3 cm2 SV(MOD-sp4): 58.5 ml LAV(MOD-bp) Indexed: 24.0 ml/m2 LVLd ap4: 7.9 cm LAV(MOD-sp2): 44.5 ml EDV(MOD-sp4): 99.1 ml LAV(MOD-sp4): 64.4 ml EDV(sp4-el): 98.6 ml LVAs ap4: 18.0 cm2 LVLs ap4: 7.0 cm ESV(MOD-sp4): 40.7 ml ESV(sp4-el): 39.3 ml EF(MOD-sp4): 59.0 % EF(sp4-el): 60.1 % SV(sp4-el): 59.3 ml LA A4 area: 20.4 cm2 LA dimension(2D): 4.3 cm RA A4 area: 14.7 cm2 Time Measurements MV dec time: 0.19 sec Doppler Measurements & Calculations MV E max apolinar: 65.7 cm/sec Lat Peak E' Apolinar: 11.3 cm/sec Med Peak E' Apolinar: 7.9 cm/sec MV A max apolinar: 62.2 cm/sec E/E' lat: 5.8 E/E' med: 8.3 MV E/A: 1.1 MV V2 max: 77.8 cm/sec Ao V2 max: 102.6 cm/sec MV max P.4 mmHg MV dec slope: 394.3 cm/sec2 Ao max P.2 mmHg MV V2 mean: 60.7 cm/sec Ao V2 mean: 70.7 cm/sec MV mean P.5 mmHg Ao mean P.3 mmHg MV V2 VTI: 29.6 cm Ao V2 VTI: 23.8 cm AV (velocity ratio): 0.81 LV V1 max: 85.9 cm/sec PA V2 max: 115.6 cm/sec LV V1 max P.0 mmHg PA V2 mean: 52.2 cm/sec LV V1 mean P.5 mmHg LV V1 mean: 56.9 cm/sec LV V1 VTI: 19.3 cm ECHO/Echo Complete Interpretation Summary Normal LV size. The estimated ejection fraction is 50 %. Mid-Lateral : Hypokinetic Stage 2 diastolic dysfunction. Post operative septal motion. Ordering Physician: Javon Zapata Referring Physician: Doroteo Durham Performed By: Maile Ortega RCS
== END | disposition home or self-care (01) ==
LOC: CVS 08:39
PROVIDERS: PCP Family Medicine; Visit Provider Internal Medicine Cardiovascular Disease
DX: I25.10 Atherosclerotic heart disease of native coronary artery without angina pectoris (principal); I25.2 Old myocardial infarction
CPT/HCPCS: 93306

== ENCOUNTER → 2023-05-29 | Outpatient (CLI) | payer MEDICARE, OTHER, SELFPAY ==
[2023-05-29 11:01] LABS: Anion Gap 7 (5-15); BUN 27 mg/dL (7-18); BUN/Creat Ratio 17.1 RATIO (10-20); Calcium,Total 9.2 mg/dL (8.5-10.1); Chloride 107 mmol/L (98-107); Cholesterol 158 mg/dL (200); Creatinine, Serum 1.58 mg/dL (0.70-1.30); EST Glomerular Filtration Rate 47 mL/min (>60); Est Glom Filt Rate - Afr Amer 56 mL/min (>60); Glucose 105 mg/dL (74-106); High Density Lipoprotein 51 mg/dL; Sodium Level 136 mmol/L (136-145); Triglycerides 99 mg/dL; Very Low Density Lipoprotein 20 mg/dL (5-40)
== END | disposition home or self-care (01) ==
LOC: MTLAB 08:39
PROVIDERS: PCP Family Medicine; Referring Provider Family Medicine; Visit Provider Family Medicine
DX: I10 Essential (primary) hypertension (principal)
CPT/HCPCS: 36415; 80048; 80061

== ENCOUNTER → 2024-07-12 | Outpatient (CLI) | payer MEDICARE, OTHER, SELFPAY ==
[2024-07-12 12:25] LABS: ALB/GLOB Ratio 0.7 RATIO (0.9-2.4); AST(SGOT) 24 U/L (15-37); Alanine Aminotransfer ALT/SGPT 38 U/L (16-61); Albumin, Serum 3.2 g/dL (3.2-5.0); Alkaline Phosphatase 107 U/L (45-117); Anion Gap 6 (5-15); BUN 22 mg/dL (7-18); BUN/Creat Ratio 16.8 RATIO (10-20); Calcium,Total 9.3 mg/dL (8.5-10.1); Chloride 110 mmol/L (98-107); Cholesterol 172 mg/dL (200); Creatinine, Serum 1.31 mg/dL (0.70-1.30); EST Glomerular Filtration Rate 58 mL/min (>60); Est Glom Filt Rate - Afr Amer 70 mL/min (>60); Globulin 4.6 g/dL (2.2-4.2); Glucose 94 mg/dL (74-106); High Density Lipoprotein 49 mg/dL; Potassium 3.9 mmol/L (3.5-5.1); Protein, Total 7.8 g/dL (6.4-8.2); Sodium Level 138 mmol/L (136-145); Triglycerides 109 mg/dL; Very Low Density Lipoprotein 22 mg/dL (5-40)
== END | disposition home or self-care (01) ==
LOC: MTLAB 09:41
PROVIDERS: PCP Family Medicine; Referring Provider Family Medicine; Visit Provider Family Medicine
DX: E78.5 Hyperlipidemia, unspecified (principal); I10 Essential (primary) hypertension
CPT/HCPCS: 36415; 80053; 80061